=== PATIENT | female | born 1990 | race Caucasian/White ===

== ENCOUNTER → 2021-11-13 | Outpatient (CLI) | payer OTHER, SELFPAY ==
[2021-11-13 10:27] LABS: Amphetamine Urine VISTA NEGATIVE (<1000 ng/mL); Barbiturate Urine VISTA NEGATIVE (< 200 ng/mL); Benzodiazepine Urine VISTA NEGATIVE (< 200 ng/mL); Cocaine Urine VISTA NEGATIVE (< 300 ng/mL); Ecstacy Urine VISTA NEGATIVE (< 500 ng/mL); Methadone Urine VISTA NEGATIVE (< 300 ng/mL); PCP Urine VISTA NEGATIVE (< 25 ng/mL); THC Urine VISTA NEGATIVE (< 50 ng/mL); Vista UDS pH Range 6
[2021-11-13 10:48] LABS: Absolute Lymphocyte Count 1.14 X10^3/uL (0.83-4.51); Absolute Neutrophil Count 6.2 X10^3/uL (2.0-7.7); Basophil# 0.03 X10^3/uL; Basophil% 0.4 % (0-1); Eosinophil# 0.04 X10^3/uL; Eosinophils% 0.5 % (0-5); Hematocrit 38.9 % (37-47); Hemoglobin 12.8 g/dL (12.0-15.0); Lymphocyte # 1.14 X10^3/ul (0.83-4.51); Lymphocyte % 14.3 % (19-41); Mean Corp Hgb Conc 32.9 g/dL (32-36); Mean Corpuscular Hgb 28.7 pg (27.0-32.0); Mean Corpuscular Volume 87.2 fL (81-99); Mean Platelet Vol. 9.5 fl (6.2-12.0); Monocyte# 0.59 X10^3/uL; Monocyte% 7.4 % (0-10); NRBC Flagged by Analyzer 0 % (0-5); Neutrophil # 6.16 X10^3/uL (2.7-7.7); Platelet Count 317 K/mm3 (150-450); RBC Distribution Width CV 12.5 % (11.6-14.6); RBC Distribution Width SD 39.5 fl (35.1-43.9); Red Blood Count 4.46 M/mm3 (4.2-5.4)
[2021-11-13 11:07] LABS: Glucose Challenge Gest 1H 50g 91 mg/dL (70-140)
[2021-11-13 11:35] LABS: NATERA MAILED SPECIMEN
[2021-11-13 11:50] LABS: HIV - WCH Non-Reactive (Nonreactive); Hepatitis B Surface Antigen Non-Reactive (Nonreactive); Hepatitis C Antibody Non-Reactive (Nonreactive); Rubella IgG Reactive (Nonreactive); Syphilis Antibodies Non-reactive
[2021-11-14 13:51] LABS: Toxoplasma Gondii IgG < 3.0 IU/mL (0.0-7.1); Toxoplasma Gondii IgM < 3.0 AU/mL (0.0-7.9)
[2021-11-15 00:06] LABS: Chlamydia By Nucleic Acid AMP Negative (Negative)
[2021-11-15 11:09] LABS: Gonococcus By Nucleic Acid AMP Negative (Negative)
== END | disposition home or self-care (01) ==
PROVIDERS: PCP Family Medicine; Referring Provider Obstetrics & Gynecology; Visit Provider Obstetrics & Gynecology
DX: Z34.00 Encounter for supervision of normal first pregnancy, unspecified trimester (principal)
CPT/HCPCS: 36415; 80307; 82950; 85025; 86703; 86762; 86777; 86778; 86780; 86803; 86850; 86900; 86901; 87086; 87340; 87491; 87591

== ENCOUNTER → 2022-03-10 | Outpatient (CLI) | payer OTHER, SELFPAY ==
[2022-03-10 13:40] LABS: Absolute Lymphocyte Count 1.28 X10^3/uL (0.83-4.51); Absolute Neutrophil Count 6.8 X10^3/uL (2.0-7.7); Basophil# 0.04 X10^3/uL; Basophil% 0.5 % (0-1); Eosinophil# 0.09 X10^3/uL; Hematocrit 34.9 % (37-47); Hemoglobin 11.5 g/dL (12.0-15.0); Lymphocyte # 1.28 X10^3/ul (0.83-4.51); Lymphocyte % 14.7 % (19-41); Mean Corpuscular Hgb 28.9 pg (27.0-32.0); Mean Corpuscular Volume 87.7 fL (81-99); Mean Platelet Vol. 9.6 fl (6.2-12.0); Monocyte# 0.44 X10^3/uL; Monocyte% 5.1 % (0-10); NRBC Flagged by Analyzer 0 % (0-5); Neutrophil % 78.2 % (47-70); Platelet Count 327 K/mm3 (150-450); RBC Distribution Width CV 12.4 % (11.6-14.6); RBC Distribution Width SD 39.8 fl (35.1-43.9); Red Blood Count 3.98 M/mm3 (4.2-5.4); White Blood Count 8.7 K/mm3 (4.4-11.0)
[2022-03-10 14:04] LABS: Glucose Challenge Gest 1H 50g 92 mg/dL (70-140)
[2022-03-10 14:36] LABS: HIV - WCH Non-Reactive (Nonreactive); Syphilis Antibodies Non-reactive
== END | disposition home or self-care (01) ==
LOC: LAB 12:32
PROVIDERS: PCP Family Medicine; Referring Provider Obstetrics & Gynecology; Visit Provider Obstetrics & Gynecology
DX: Z34.00 Encounter for supervision of normal first pregnancy, unspecified trimester (principal)
CPT/HCPCS: 36415; 82950; 85025; 86703; 86780

== ENCOUNTER → 2022-05-15 | Outpatient (CLI) | payer OTHER, SELFPAY | END | disposition home or self-care (01) | LOC: LAB 13:33 | PROVIDERS: PCP Family Medicine; Referring Provider Obstetrics & Gynecology; Visit Provider Obstetrics & Gynecology | DX: Z34.00 Encounter for supervision of normal first pregnancy, unspecified trimester (principal) | CPT/HCPCS: 87077; 87081; 87186 ==

== ENCOUNTER 2022-06-08 06:53 | Inpatient (IN) | payer OTHER, SELFPAY ==
[2022-06-08] VITALS (30 sets, daily range): BP systolic 48–143; BP diastolic 21–94; PULSE 69–93; TEMP 36.4–37.2; O2SAT 81–100; BMI 39.6
[2022-06-08] MEDS: Lactated Ringers 1,000 ML 200 ML IV ×5 (07:00→21:00)
[2022-06-08] MEDS: LACTATED RINGERS 500 ML 999 ML IV (07:00)
[2022-06-08 07:22] LABS: Absolute Lymphocyte Count 1.46 X10^3/uL (0.83-4.51); Absolute Neutrophil Count 8.4 X10^3/uL (2.0-7.7); Basophil# 0.04 X10^3/uL; Basophil% 0.4 % (0-1); Eosinophil# 0.04 X10^3/uL; Eosinophils% 0.4 % (0-5); Hemoglobin 10.7 g/dL (12.0-15.0); Lymphocyte # 1.46 X10^3/ul (0.83-4.51); Lymphocyte % 13.9 % (19-41); Mean Corp Hgb Conc 31.5 g/dL (32-36); Mean Corpuscular Hgb 25.5 pg (27.0-32.0); Monocyte# 0.54 X10^3/uL; Monocyte% 5.2 % (0-10); NRBC Flagged by Analyzer 0 % (0-5); Neutrophil # 8.35 X10^3/uL (2.7-7.7); Neutrophil % 79.6 % (47-70); Platelet Count 336 K/mm3 (150-450); RBC Distribution Width SD 39.7 fl (35.1-43.9); White Blood Count 10.5 K/mm3 (4.4-11.0)
[2022-06-08] MEDS: fentaNYL-bupivacaine (epidural) 100 ML BAG EPIDURAL ×4 (07:42→21:00)
[2022-06-08 08:08] LABS: Syphilis Antibodies Non-reactive
--- NOTE | 2022-06-08 08:45 | HP.PCM.OB_ITS ---
HPI - General General Date of Admission: 06/08/22 HPI Narrative LEIF RAY, is a 32 F who presents IAL regular ctx and SROM clear fluid Maternal Data Information SOLANGE Calculator Estimated Delivery Date Method Current WG Current Estimate 06/10/22 LMP (Certain) 39w 5d Other Estimates 06/08/22 Ultrasound #1 40w 0d PFSH PFSH Home Medications multivitamin no.47-iron fum 27 mg-folate no.1 1 mg-dha 300 mg capsule (PNV-DHA) cap PO 11/06/21 [History Last Taken 06/07/22] Allergy/AdvReac Type Severity Reaction Status Date / Time No Known Allergies Allergy Verified 06/08/22 06:49 Family History Father Colon cancer, Onset Age: 50 Survivor Social History adopted: No household members: spouse housing: house current occupational status: employed 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 current occupational exposures/hazards: Yes (avoidable) pets and animals: Yes (not managing litterbox) pets and animals: cat(s), dog(s) and farm animals history of recent travel: Yes ([place], [place]) out of state: Yes out of country: No sexually active: Yes Smoking Status: Never smoker alcohol intake: never substance use type: does not use well-balanced diet: daily or most days caffeine: Yes Type: tea Number of servings: 1 eating out: 1-3 times/week during the past year weight has: remained stable what type of physical activity do you participate in: walking frequency: 1-2 times per week duration: 30-45 minutes/day grazyna/alevism: Cheondoism seatbelt use: always do you feel safe at home: Yes additional social history: Spouse Luis- [employer] History 1 Elective abortions Hx Para 0 Spontaneous abortions Hx # Term Pregnancies Ectopic pregnancies Hx # Pregnancies Multiple births # of living children Visit Details Expected Delivery Route/Plan Labor Preferences- CB/BF classes: scheduled labor support person: Luis () labor intervention preferences: [] pain management options preferred: epidural cut cord/dad catch: cord : yes PP control planned: discussed discussed possible routes of delivery and associated risks: [] special requests: [] Plans Covid status: vaccinated Flu vaccine: discussed Tdap vaccine: given Rhogam: na LARC form signed: yes Problem list reviewed and updated with the most current plan of care details and appropriate orders placed. Relevant counseling for the gestational age provided. Continue routine care and follow up unless otherwise noted in visit notes/problem list details OB Flowsheet Initial Weight: Not Recorded Date -?-?-?-?-?-?-?-?-?-?-?-?- EGA Weight BP Urine Prot -?-?-?-?-?-?-?-?-?-?-?-?- Glucose FHR FuHt Pres Dilation -?-?-?-?-?-?-?-?-?-?-?-?- Effaced St Visit Note 11/13/21 -?-?-?-?-?-?-?-?-?-?-?-?- 10w 1d 208 lb 6 oz 117/66 -?-?-?-?-?-?-?-?-?-?-?-?- 185 -?-?-?-?-?-?-?-?-?-?-?-?- JV- CRL consiten t with LMP 12/09/21 -?-?-?-?-?-?-?-?-?-?-?-?- 13w 6d 210 lb 110/60 -?-?-?-?-?-?-?-?-?-?-?-?- 150 -?-?-?-?-?-?-?-?-?-?-?-?- SM- no vb crampi ng 01/06/22 -?-?-?-?-?-?-?-?-?-?-?-?- 17w 6d 212 lb 4 oz 118/66 Nega tive -?-?-?-?-?-?-?-?-?-?-?-?- Negative 146 -?-?-?-?-?-?-?-?-?-?-?-?- MH-nausea improv ing. NO VB, cramping. 02/06/22 -?-?-?-?-?-?-?-?-?-?-?-?- 22w 2d 218 lb 6 oz 104/69 Nega tive -?-?-?-?-?-?-?--?-?-?-?-?- Negative 156 -?-?-?-?-?-?-?-?-?-?-?-?- MH-NO VB, LOF. F eeling some movements/ant placenta. Nausea off and on but manageabe. 03/10/22 -?-?-?-?-?-?-?-?-?-?-?-?- 26w 6d 224 lb 4 oz 110/70 Nega tive -?-?-?-?-?-?-?-?-?-?-?-?- Negative 145 27 -?-?-?-?-?-?-?-?-?-?-?-?- Sm- no vb lof go od fm no regular ctx cbc gct today 04/03/22 -?-?-?-?-?-?-?-?-?-?-?-?- 30w 2d 231 lb 4 oz 117/73 Nega tive -?-?-?-?-?-?-?-?-?-?-?-?- Negative 137 30 -?-?-?-?-?-?-?-?-?-?-?-?- JV- plan r eviewed today and very reasonable. pt wants to bank blood for public donation. The form states that delayed cord clamping is not allowed. plan to only collect if there is a situation that we can't delay the cord clamp. 04/14/22 -?-?-?-?-?-?-?-?-?-?-?-?- 31w 6d 239 lb 117/69 Negative -?-?--?-?-?-?-?-?-?-?-?-?- Negative 143 33 -?-?-?-?-?-?-?-?-?-?-?-?- MH-No VB, LOF. G ood Fm. 05/01/22 -?-?-?-?-?-?-?-?-?-?-?-?- 34w 2d 235 lb 2 oz 102/68 Nega tive -?-?-?-?-?-?-?-?-?-?-?-?- Negative 147 34 Cephalic -?-?-?-?-?-?-?-?-?-?-?-?- JV- no lof, vagi nal bleeding, or dec fm. no complaints today. 05/15/22 -?-?-?-?-?-?-?-?-?-?-?-?- 36w 2d 237 lb 4 oz 128/69 Nega tive -?-?-?-?-?-?-?-?-?-?-?-?- Negative 139 36 Cephalic 0 -?-?-?-?-?-?-?-?-?-?-?-?- JV- no lof, vag bleeding, or dec fm. vtx on scan today. gbs collected. 05/19/22 -?-?-?-?-?-?-?-?-?-?-?-?- 36w 6d 239 lb 8 oz 122/68 -?-?-?-?-?-?-?-?-?-?-?-?- 140 37 Cephalic -?-?-?-?-?-?-?-?-?-?-?-?- SM- no vb lof go od fm no regular ctx 05/29/22 -?-?-?-?-?-?-?-?-?-?-?-?- 38w 2d 243 lb 4 oz 127/77 Nega tive -?-?-?-?-?-?-?-?-?-?-?-?- Negative 136 38 Cephalic 1 .5 -?-?-?-?-?-?-?-?-?-?-?-?- 65 -2 JV- no lof , vaginal bleeding, or dec fm. no complaints. 06/05/22 -?-?-?-?-?-?-?-?-?-?-?-?- 39w 2d 247 lb 4 oz 142/81 119/70 Negative -?-?-?-?-?-?-?-?-?-?-?-?- Negative 135 39 Cephalic 3 -?-?-?-?-?-?-?-?-?-?-?-?- 60 -2 SM- no vb lof good fm no regular ctx no CALVIN BV membranes swept 06/08/22 -?-?-?-?-?-?-?-?-?-?-?-?- 39w 5d 245 lb 6.4 oz 120/74 121/62 137/94 143/82 111/59 104/55 -?-?-?-?-?-?-?-?-?-?-?-?- -?-?-?-?-?-?-?-?-?-?-?-?- NST FHR Rate Baby A Baseline: 130 Variability:: Moderate Accelerations:: 15 x 15 Decelerations:: None NST Reactive:: Yes FHR Category:: Category I Uterine Activity:: q5 ROS Constitutional Constitutional: Reports systems reviewed and no addt'l complaints, except as documented ENT HEENT: Reports systems reviewed and no addt'l complaints, except as documented Cardiovascular Cardiovascular: Reports systems reviewed and no addt'l complaints, except as documented Respiratory/Chest Respiratory/Chest: Reports systems reviewed and no addt'l complaints, except as documented Gastrointestinal Gastrointestinal: Reports systems reviewed and no addt'l complaints, except as documented and nausea; Denies abdominal pain Genitourinary Genitourinary: Reports systems reviewed and no addt'l complaints, except as documented, contractions Details: present and frequency (regular ) and movement Details: present Musculoskeletal Musculoskeletal: Reports systems reviewed and no addt'l complaints, except as documented Integumentary Integumentary: Reports as per HPI Neurologic Neurologic: Reports systems reviewed and no addt'l complaints, except as doc umented Endocrine Endocrinology: Reports systems reviewed and no addt'l complaints, except as documented Vital Signs Vital Signs Vital Signs: 06/08/22 06:35 06/08/22 06:35 06/08/22 06:32 Temperature Temperature Source Temporal Pulse Rate 69 Blood Pressure BP Systolic BP Diastolic Pulse Ox 89 06/08/22 06:35 06/08/22 06:35 06/08/22 06:32 Temperature 97.6 F L Temperature Source Pulse Rate 69 Blood Pressure 120/74 BP Systolic 120 BP Diastolic 74 Pulse Ox 06/08/22 07:33 06/08/22 07:33 06/08/22 07:32 Temperature Temperature Source Pulse Rate 75 Blood Pressure 121/62 H BP Systolic 121 BP Diastolic 62 Pulse Ox 99 06/08/22 07:35 06/08/22 07:35 06/08/22 07:37 Temperature Temperature Source Pulse Rate 74 73 Blood Pressure BP Systolic BP Diastolic Pulse Ox 88 06/08/22 07:37 06/08/22 07:38 06/08/22 07:38 Temperature Temperature Source Pulse Rate 81 Blood Pressure 137/94 H BP Systolic 137 BP Diastolic 94 Pulse Ox 94 06/08/22 07:42 06/08/22 07:43 06/08/22 07:43 Temperature Temperature Source Pulse Rate 78 Blood Pressure 143/82 H BP Systolic 143 BP Diastolic 82 Pulse Ox 91 06/08/22 07:51 06/08/22 07:51 06/08/22 07:50 Temperature Temperature Source Pulse Rate 92 Blood Pressure 111/59 L BP Systolic 111 BP Diastolic 59 Pulse Ox 100 06/08/22 07:55 06/08/22 07:55 06/08/22 07:57 Temperature Temperature Source Pulse Rate 93 Blood Pressure 104/55 L BP Systolic 104 BP Diastolic 55 Pulse Ox 98 06/08/22 07:57 Temperature Temperature Source Pulse Rate 92 Blood Pressure BP Systolic BP Diastolic Pulse Ox Weight Weight: 245 lb 6.4 oz Body Mass Index (BMI) 39.6 Physical Exam Const alert, oriented x3 and healthy appearing Constitutional Narrative: uncomfortable with contractions HEENT normocephalic and moist oral mucous membranes Head and Scalp: atraumatic Neck full ROM, no lymphadenopathy, supple and thyroid normal General: trachea midline Thyroid: thyroid normal Lymph Lymphatic: no lymphadenopathy noted Chest inspection of chest normal Resp normal respiratory effort Cardio regular rate GI normal to inspection, nondistended, normoactive bowel sounds, soft to palpation and non-tender Inspection: gravid external exam normal Bimanual Exam - Vag & Uterus: uterus non-tender Manual OB Exam: estimated gestational size appropriate, presentation cephalic, dilated, effaced and station Extremity normal to inspection General Extremity: Negative for edema Skin no rashes or lesions noted Neuro deep tendon reflexes 2+ bilaterally Motor Exam: strength 5/5 throughout and clonus absent Psych mental status grossly normal Labs Labs Labs: Blood Type B POSITIVE Antibody Screen NEGATIVE Hct 34.0 % (37-47) L Hgb 10.7 g/dL (12.0-15.0) L Pap Smear Negative Syphilis Total Ab Non-reactive Rubella IgG Antibody Reactive (Nonreactive) Hep Bs Antigen Non-Reactive (Nonreactive) Chlamydia DNA ([place]IA[facility]) Negative (Negative) Neisseria gonorrhoeae DNA ([place]) Negative (Negative) HIV 1&2 Antibody Non-Reactive (Nonreactive) Glucose 1 Hr 50 gm 92 mg/dL (70-140) Assessment & Plan (1) Positive GBS test: COMMENT: PCN in labor (2) Family hx of colon cancer: COMMENT: Father 50 yo Survivor (3) : QUALIFIERS: Weeks of gestation: 39 weeks Qualified Code(s): Z3A.39 - 39 weeks gestation of COMMENT: NIPT low risk, carrier neg. . anatomy nl. (4) Supervision of normal first : COMMENT: PRR SOLANGE 06/10/22 girl Pippa Spouse Luis (5) Obesity affecting : (6) SROM (spontaneous rupture of membranes): PLAN: Plan Patient presents ial srom pit prn. Pain management: plans epidural. GBS positive plan IV PCN. Management of any complications: none I have reviewed the [facility] and made any clinically relevant updates.
[2022-06-08] MEDS: Oxytocin 15 Units/NS 250ml 15 UNITS/250 ML IV.SOLN 2 UNITS IV (10:32)
[2022-06-08] MEDS: Penicillin G 3,000,000 Units 50 ML 100 UNITS IV ×4 (11:53→23:49)
[2022-06-08] MEDS: 0.9% Saline Lock 10 ML Syringe IV (22:58)
[2022-06-08] MEDS: Ondansetron 4 MG/2 ML Vial IV (22:59)
--- NOTE | 2022-06-08 23:26 | EX.PCM.OBRPT ---
Assessment & Plan (1) SROM (spontaneous rupture of membranes): (2) Positive GBS test: COMMENT: PCN in labor (3) Obesity affecting : (4) Supervision of normal first : COMMENT: PRR SOLANGE 06/10/22 girl Pippa Spouse Luis (5) : QUALIFIERS: Weeks of gestation: 39 weeks Qualified Code(s): Z3A.39 - 39 weeks gestation of COMMENT: NIPT low risk, carrier neg. . anatomy nl. (6) Family hx of colon cancer: COMMENT: Father 50 yo Survivor (7) Vaginal delivery: COMMENT: SM IAL girl Pippa 40 Maternal Data Information SOLANGE Calculator Estimated Delivery Date Method Current WG Current Estimate 06/10/22 LMP (Certain) 39w 6d Other Estimates 06/08/22 Ultrasound #1 40w 1d Vaginal Delivery Operative Information Date of Procedure: 06/08/22 Pre-Operative Diagnosis: see a/p diagnoses Post-Operative Diagnosis: same Surgery / Procedure Performed: Spontaneous Vaginal Delivery Type of Anesthesia: Epidural Special Medications: none Estimated Blood Loss: 400 Fluids Replaced: crystalloid Findings Description of Procedure: Patient began pushing and delivered the head in the REYNA presentation. The head was delivered atraumatically and a loose nuchal cord ?1 was identified and the delivered through without complication. The anterior and posterior shoulders delivered without complication followed by the rest of the infant and the infant was placed on the maternal abdomen. Delayed cord clamping was employed for approximately 60 seconds. Cord was clamped and cut and gentle traction was applied to the cord and the placenta delivered spontaneously immediately following it was noted to be intact with three-vessel cord. The perineum and vagina were inspected and noted to have a second degree perineal laceration and supraurethral which was repaired in the usual fashion with 3-0 vicryl rapide after the area was prepped with betadine and the catheter replaced during repair . EBL was 400. Patient and tolerated delivery well. Amniotic Fluid Description: Clear Placental Delivery Description: Spontaneous Placenta Disposition: [facility] Cord Vessel Description: 3 Vessels Cord Entanglement: None Delayed Cord Clamping: Yes Post Vaginal Delivery Medications Given After Delivery: IV Pitocin Episiotomy Description: None Complication Complications: None Procedures Urinary/Genital [id number]: [id number] Vaginal Delivery [facility]
--- NOTE | 2022-06-08 23:27 | DCINST_ITS ---
Discharge Instructions Diet Discharge Diet: No restrictions Activity Discharge Activity: Return to Normal Activity, May Drive, May Shower and May Take a Tub Bath (in 4 weeks) May resume sexual activity in: 6-8 weeks (after seen by OB provider) Weight Bearing Status: Full weight bearing Lifting Restrictions: none Dressing / Incision Call your doctor if you observe: Fever of 101 or Higher, Inability to urinate, Using more than 1 pad per hour (for more than 2 hours in a row or more), Shortness of breath, Dizziness, Chest pain and - (headache not controlled with tylenol, change in vision) Follow Up Care When: in 6 weeks for visit, call the office to make the appointment. If you had elevated blood pressures call the office to be seen within 1 week. Test Results: Test results from this visit will be discussed in further detail at your follow- up appointment, if applicable. Discharge Plan Admission Admit Date/Time: 06/08/22 06:53 Attending Provider: Katie Sims Primary Care Provider: Marc Ayers Discharge Orders/Prescriptions Prescriptions: No Action PNV-DHA 27 mg iron-1 mg -300 mg capsule PO Referrals / Follow Up: Marc Ayers MD [Primary Care Provider] - Disposition Disposition (needs filled in before D/C Order can be placed): Home, Self Care
[2022-06-09] VITALS (39 sets, daily range): BP systolic 105–134; BP diastolic 47–58; PULSE 80–108; RESP 15–16; TEMP 36.3–36.9; O2SAT 89–99
[2022-06-09] MEDS: Oxytocin 15 Units/NS 250ml 15 UNITS/250 ML IV.SOLN 83 UNITS IV (01:44)
[2022-06-09] MEDS: Naproxen 500 MG Tablet PO ×3 (03:07→20:25)
--- NOTE | 2022-06-09 04:42 | NURSING ---
Epidural catheter removed, blue tip intact.
[2022-06-10 01:25] VITALS: BP 112/71; PULSE 97; RESP 16; TEMP 36.6; O2SAT 97
--- NOTE | 2022-06-10 07:28 | PCM.PN.OB ---
Subjective Subjective Patient doing well without complaints. Tolerating PO. Ambulating and voiding without difficulty. Feeding well. Denies chest pain, shortness of breath, calf pain/swelling, fevers, chills, lightheadedness. Objective Data Objective Data Vital Signs: Vital Signs Temp Pulse Resp BP Pulse Ox O2 Del Method 97.9 F 97 16 112/71 97 Room Air 06/10/22 01:25 06/10/22 01:25 06/10/22 01:25 06/10/22 01:25 06/10/22 01:25 06/10/22 01:25 Oxygen Delivery Method Room Air Weight: 245 lb 6.4 oz Body Mass Index (BMI) 39.6 Intake & Output: Intake and Output for Last 24 Hours 06/08/22 06/09/22 06/10/22 23:59 23:59 23:59 Intake Total 4043.69 / 4043.69 1437.98 / 1437.98 Output Total 250 / 250 2300 / 2300 Balance 3793.69 / 3793.69 -862.02 / -862.02 Lab / Micro Data Attestation: I reviewed the patient's lab results. Result Diagrams: 06/08/22 07:00 ROS Constitutional Constitutional: Reports systems reviewed and no addt'l complaints, except as documented; Denies anorexia or headache(s) Cardiovascular Cardiovascular: Reports systems reviewed and no addt'l complaints, except as documented; Denies dizziness, dyspnea, nausea or tachypnea Respiratory/Chest Respiratory/Chest: Reports systems reviewed and no addt'l complaints, except as documented; Denies cough, dyspnea, shortness of breath at rest or tachypnea Gastrointestinal Gastrointestinal: Reports systems reviewed and no addt'l complaints, except as documented; Denies abdominal pain, constipation or nausea Genitourinary Genitourinary: Reports systems reviewed and no addt'l complaints, except as documented; Denies burning urination, difficulty urinating, dysuria, urinary frequency or urinary incontinence Musculoskeletal Musculoskeletal: Reports systems reviewed and no addt'l complaints, except as documented Integumentary Integumentary: Reports systems reviewed and no addt'l complaints, except as documented Neurologic Neurologic: Reports systems reviewed and no addt'l complaints, except as documented; Denies abnormal speech, dizziness or headache(s) Psychiatric Psychiatric: Reports systems reviewed and no addt'l complaints, except as documented Endocrine Endocrinology: Reports systems reviewed and no addt'l complaints, except as documented Hematologic/Lymphatic Hematologic/Lymphatic: Reports systems reviewed and no addt'l complaints, except as documented Physical Exam Const alert, oriented x3 and no apparent distress Neck full ROM Chest inspection of chest normal and inspection of breasts normal Nipple/Areola: nipples/areola normal Resp normal respiratory effort, normal air movement and no retractions Effort and Inspection: able to speak in complete sentences and symmetric chest movement GI soft to palpation Bladder / Kidney Exam: bladder normal to palpation Uterus Palpation: uterus fundus firm (U1) Extremity normal to inspection and full ROM Psych mental status grossly normal, thought process normal and cooperative Assessment & Plan (1) Vaginal delivery: COMMENT: TOAV WILLIS IAL girl Pippa 40 PLAN: s/p PPD # 1 1. routine post delivery care 2. breast feeding- support given 3. rh positive 4. rubella immune 5. Discharge home Charges/Coding Multi Select Codes Urinary/Genital Urinary/Genital CPT Codes: No Charge
--- NOTE | 2022-06-10 07:30 | DCINST_ITS ---
Discharge Instructions Diet Discharge Diet: No restrictions Activity May resume sexual activity in: 6-8 weeks (after seen by OB provider) Weight Bearing Status: Full weight bearing Dressing / Incision Call your doctor if you observe: Fever of 101 or Higher, Inability to urinate, Using more than 1 pad per hour (for more than 2 hours in a row or more), Shortness of breath, Dizziness, Chest pain and - (headache not controlled with tylenol, change in vision) Follow Up Care Test Results: Test results from this visit will be discussed in further detail at your follow- up appointment, if applicable. Discharge Plan Admission Admit Date/Time: 06/08/22 06:53 Attending Provider: Katie Sims Primary Care Provider: Marc Ayers Discharge Orders/Prescriptions Prescriptions: No Action PNV-DHA 27 mg iron-1 mg -300 mg capsule PO Referrals / Follow Up: Marc Ayers MD [Primary Care Provider] - Disposition Disposition (needs filled in before D/C Order can be placed): Home, Self Care
[2022-06-10 07:58] VITALS: BP 120/50; PULSE 78; RESP 16; TEMP 36.5; O2SAT 96
== END 2022-06-10 09:15 | disposition home or self-care (01) | DRG 807 ==
PROVIDERS: Admitting Provider Obstetrics & Gynecology; PCP Family Medicine; Referring Provider Obstetrics & Gynecology; Visit Provider Obstetrics & Gynecology
DX: O42.92 Full-term premature rupture of membranes, unspecified as to length of time between rupture and onset of labor (principal); Z37.0 Single live birth; O69.81X0 Labor and delivery complicated by cord around neck, without compression, not applicable or unspecified; O70.1 Second degree perineal laceration during delivery; O99.824 Streptococcus B carrier state complicating childbirth; Z3A.39 39 weeks gestation of pregnancy; O99.214 Obesity complicating childbirth
CPT/HCPCS: 59025; 59050; 85025; 86780; 86850; 86900; 86901; 99221; J7120; A4216; G0378; J2405

== ENCOUNTER → 2022-07-21 | Outpatient (CLI) | payer OTHER, SELFPAY ==
[2022-07-29 09:07] LABS: HPV APTIMA, High Risk Negative (Negative)
== END | disposition home or self-care (01) ==
PROVIDERS: PCP Family Medicine; Visit Provider Obstetrics & Gynecology
DX: Z12.4 Encounter for screening for malignant neoplasm of cervix (principal)
CPT/HCPCS: 87624; 88175; G0145

== ENCOUNTER → 2024-01-21 | Outpatient (CLI) | payer OTHER, SELFPAY ==
[2024-01-23 08:12] LABS: Chlamydia By Nucleic Acid AMP Negative (Negative); Gonococcus By Nucleic Acid AMP Negative (Negative)
== END | disposition home or self-care (01) ==
LOC: BWCLAB 10:38 → LABSPEC 10:39
PROVIDERS: Referring Provider Advanced Practice Midwife; Visit Provider Advanced Practice Midwife
DX: O09.90 Supervision of high risk pregnancy, unspecified, unspecified trimester (principal); O99.210 Obesity complicating pregnancy, unspecified trimester; Z3A.00 Weeks of gestation of pregnancy not specified
CPT/HCPCS: 87086; 87491; 87591

== ENCOUNTER → 2024-02-05 | Outpatient (CLI) | payer OTHER, SELFPAY ==
[2024-02-05 13:59] LABS: Absolute Lymphocyte Count 1.61 X10^3/uL (0.83-4.51); Absolute Neutrophil Count 5.4 X10^3/uL (2.0-7.7); Basophil# 0.04 X10^3/uL; Basophil% 0.5 % (0-1); Eosinophil# 0.09 X10^3/uL; Eosinophils% 1.2 % (0-5); Hematocrit 36.9 % (37-47); Lymphocyte # 1.61 X10^3/ul (0.83-4.51); Lymphocyte % 21.1 % (19-41); Mean Corp Hgb Conc 32.5 g/dL (32-36); Mean Corpuscular Hgb 27.8 pg (27.0-32.0); Mean Corpuscular Volume 85.4 fL (81-99); Mean Platelet Vol. 9.7 fl (6.2-12.0); Monocyte# 0.45 X10^3/uL; Monocyte% 5.9 % (0-10); NRBC Flagged by Analyzer 0 % (0-5); Neutrophil # 5.42 X10^3/uL (2.7-7.7); Platelet Count 332 K/mm3 (150-450); RBC Distribution Width CV 13.1 % (11.6-14.6); RBC Distribution Width SD 40.8 fl (35.1-43.9); Red Blood Count 4.32 M/mm3 (4.2-5.4); White Blood Count 7.6 K/mm3 (4.4-11.0)
[2024-02-05 14:23] LABS: Hemoglobin A1c 5.4 % (3.8-5.6)
[2024-02-05 15:02] LABS: HIV - WCH Non-Reactive (Nonreactive); Hepatitis B Surface Antigen Non-Reactive (Nonreactive); Hepatitis C Antibody Non-Reactive (Nonreactive); Rubella IgG Reactive (Nonreactive); Syphilis Antibodies Non-reactive
== END | disposition home or self-care (01) ==
LOC: BWCLAB 13:22
PROVIDERS: Advanced Practice Midwife; Referring Provider Obstetrics & Gynecology; Visit Provider Obstetrics & Gynecology
DX: O99.210 Obesity complicating pregnancy, unspecified trimester (principal); Z3A.00 Weeks of gestation of pregnancy not specified
CPT/HCPCS: 36415; 83036; 85025; 86703; 86762; 86780; 86803; 86850; 86900; 86901; 87340

== ENCOUNTER → 2024-02-17 | Outpatient (CLI) | payer OTHER, SELFPAY | END | disposition home or self-care (01) | LOC: BWCLAB 14:28 | PROVIDERS: Referring Provider Obstetrics & Gynecology; Visit Provider Obstetrics & Gynecology | DX: Z34.81 Encounter for supervision of other normal pregnancy, first trimester (principal) | CPT/HCPCS: 36415 ==

== ENCOUNTER → 2024-03-17 | Outpatient (CLI) | payer OTHER, SELFPAY | END | disposition home or self-care (01) | LOC: LABSPEC 15:19 | PROVIDERS: Referring Provider Obstetrics & Gynecology; Visit Provider Obstetrics & Gynecology | DX: N89.8 Other specified noninflammatory disorders of vagina (principal) | CPT/HCPCS: 87070; 87205 ==

== ENCOUNTER → 2024-06-03 | Outpatient (CLI) | payer OTHER, SELFPAY ==
[2024-06-03 12:13] LABS: Absolute Lymphocyte Count 1.23 X10^3/uL (0.83-4.51); Absolute Neutrophil Count 6.9 X10^3/uL (2.0-7.7); Basophil# 0.03 X10^3/uL; Basophil% 0.3 % (0-1); Eosinophil# 0.07 X10^3/uL; Eosinophils% 0.8 % (0-5); Hematocrit 35.3 % (37-47); Hemoglobin 11.4 g/dL (12.0-15.0); Lymphocyte # 1.23 X10^3/ul (0.83-4.51); Mean Corp Hgb Conc 32.3 g/dL (32-36); Mean Corpuscular Hgb 27.8 pg (27.0-32.0); Mean Corpuscular Volume 86.1 fL (81-99); Monocyte# 0.47 X10^3/uL; Monocyte% 5.3 % (0-10); NRBC Flagged by Analyzer 0 % (0-5); Neutrophil # 6.93 X10^3/uL (2.7-7.7); Neutrophil % 78.9 % (47-70); Platelet Count 295 K/mm3 (150-450); RBC Distribution Width CV 12.6 % (11.6-14.6); RBC Distribution Width SD 39.4 fl (35.1-43.9); White Blood Count 8.8 K/mm3 (4.4-11.0)
[2024-06-03 13:09] LABS: Glucose Challenge Gest 1H 50g 94 mg/dL (70-140); HIV Nonreactive (Nonreactive); Syphilis Antibodies Nonreactive (Nonreactive)
== END | disposition home or self-care (01) ==
PROVIDERS: Obstetrics & Gynecology; Referring Provider Advanced Practice Midwife; Visit Provider Advanced Practice Midwife
DX: O09.90 Supervision of high risk pregnancy, unspecified, unspecified trimester (principal); Z13.1 Encounter for screening for diabetes mellitus; Z3A.00 Weeks of gestation of pregnancy not specified
CPT/HCPCS: 36415; 82950; 85025; 86703; 86780

== ENCOUNTER → 2024-07-11 | Outpatient (CLI) | payer OTHER, SELFPAY ==
[2024-07-11 12:47] LABS: AST(SGOT) 28 U/L (<=31); Alanine Aminotransfer ALT/SGPT 52 U/L (<=34); Albumin, Serum 3.3 g/dL (3.5-5.0); Alkaline Phosphatase 152 U/L (35-104); Anion Gap 11 (5-15); BUN 7 mg/dL (4-19); BUN/Creat Ratio 11.5 RATIO (10-20); Calcium,Total 8.6 mg/dL (7.6-11.0); Carbon Dioxide 21.2 mmol/L (21.0-32.0); Chloride 105 mmol/L (98-108); Creatinine, Serum 0.63 mg/dL (0.70-1.20); EST Glomerular Filtration Rate 119 (>60); Globulin 3.2 g/dL (2.2-4.2); Glucose 93 mg/dL (70-99); Potassium 3.7 mmol/L (3.3-5.1); Protein, Total 6.5 g/dL (5.9-8.4); Sodium Level 137 mmol/L (133-145); Total Bilirubin 0.53 mg/dL (0.00-1.30)
[2024-07-11 13:45] LABS: Absolute Lymphocyte Count 1.38 X10^3/uL (0.83-4.51); Absolute Neutrophil Count 4.4 X10^3/uL (2.0-7.7); Basophil# 0.03 X10^3/uL; Basophil% 0.5 % (0-1); Eosinophil# 0.03 X10^3/uL; Eosinophils% 0.5 % (0-5); Hematocrit 34.1 % (37-47); Hemoglobin 11.3 g/dL (12.0-15.0); Lymphocyte # 1.38 X10^3/ul (0.83-4.51); Lymphocyte % 22.1 % (19-41); Mean Corp Hgb Conc 33.1 g/dL (32-36); Mean Corpuscular Hgb 27.5 pg (27.0-32.0); Mean Platelet Vol. 10.4 fl (6.2-12.0); Monocyte# 0.35 X10^3/uL; Monocyte% 5.6 % (0-10); NRBC Flagged by Analyzer 0 % (0-5); Neutrophil # 4.44 X10^3/uL (2.7-7.7); POSITIVE MORPHOLOGY YES; Platelet Count 293 K/mm3 (150-450); RBC Distribution Width CV 12.5 % (11.6-14.6); RBC Distribution Width SD 37.7 fl (35.1-43.9); Red Blood Count 4.11 M/mm3 (4.2-5.4); White Blood Count 6.3 K/mm3 (4.4-11.0)
[2024-07-11 13:55] LABS: Differential Indicated SCAN CRITERIA MET
[2024-07-11 15:48] LABS: Platelet Estimate ADEQUATE (ADEQ)
== END | disposition home or self-care (01) ==
PROVIDERS: Referring Provider Advanced Practice Midwife; Visit Provider Advanced Practice Midwife
DX: O26.649 Intrahepatic cholestasis of pregnancy, unspecified trimester (principal); O99.719 Diseases of the skin and subcutaneous tissue complicating pregnancy, unspecified trimester; L29.9 Pruritus, unspecified; O21.9 Vomiting of pregnancy, unspecified; Z3A.00 Weeks of gestation of pregnancy not specified
CPT/HCPCS: 36415; 80053; 85025

== ENCOUNTER → 2024-07-20 | Outpatient (CLI) | payer OTHER, SELFPAY ==
--- NOTE | 2024-07-20 18:01 | US_ITS ---
PROCEDURE: BIOPHYSICAL PROF W/O NON STRES 07/20/2024 REASON FOR EXAM: WELL BEING TECHNIQUE: Transabdominal OB ultrasound for biophysical profile COMPARISON: None available FINDINGS Single live intrauterine heart tones 141 beats per minute. Presentation is cephalic. ANN MARIE 11.9 cm, largest fluid pocket 7.2 x 6 0.0 cm Estimated age by LMP 35 weeks and 3 days, SOLANGE 08/26/2024 Grade 1 posterior placenta appears within limits. Not low-lying breathing movements: 2/2 Gross body movements: 2/2 Tone: 2/2 Amniotic fluid volume: 2/2 Total: 8/8 US/Biophysical Prof W/O Non Stres IMPRESSION: BIOPHYSICAL PROFILE SCORE 8/8. Single live intrauterine as above. Reading Location: [id number]
== END | disposition home or self-care (01) ==
LOC: US 17:57
PROVIDERS: Referring Provider Advanced Practice Midwife; Visit Provider Advanced Practice Midwife
DX: Z34.93 Encounter for supervision of normal pregnancy, unspecified, third trimester (principal)
CPT/HCPCS: 76819

== ENCOUNTER → 2024-07-28 | Outpatient (CLI) | payer OTHER, SELFPAY ==
[2024-07-28 15:03] LABS: Absolute Lymphocyte Count 1.42 X10^3/uL (0.83-4.51); Absolute Neutrophil Count 5.8 X10^3/uL (2.0-7.7); Basophil# 0.03 X10^3/uL; Basophil% 0.4 % (0-1); Eosinophil# 0.04 X10^3/uL; Eosinophils% 0.5 % (0-5); Hematocrit 33.9 % (37-47); Lymphocyte # 1.42 X10^3/ul (0.83-4.51); Lymphocyte % 18.3 % (19-41); Mean Corp Hgb Conc 32.4 g/dL (32-36); Mean Corpuscular Hgb 26.5 pg (27.0-32.0); Mean Corpuscular Volume 81.7 fL (81-99); Mean Platelet Vol. 10.7 fl (6.2-12.0); Monocyte# 0.44 X10^3/uL; Monocyte% 5.7 % (0-10); NRBC Flagged by Analyzer 0 % (0-5); Neutrophil # 5.81 X10^3/uL (2.7-7.7); Neutrophil % 74.7 % (47-70); Platelet Count 276 K/mm3 (150-450); RBC Distribution Width SD 37.8 fl (35.1-43.9); Red Blood Count 4.15 M/mm3 (4.2-5.4); White Blood Count 7.8 K/mm3 (4.4-11.0)
[2024-07-28 16:03] LABS: ALB/GLOB Ratio 0.9 RATIO (0.9-2.4); AST(SGOT) 24 U/L (<=31); Alanine Aminotransfer ALT/SGPT 34 U/L (<=34); Albumin, Serum 3.2 g/dL (3.5-5.0); Alkaline Phosphatase 160 U/L (35-104); Anion Gap 12 (5-15); BUN 9 mg/dL (4-19); BUN/Creat Ratio 12.5 RATIO (10-20); Chloride 104 mmol/L (98-108); Creatinine, Serum 0.71 mg/dL (0.70-1.20); EST Glomerular Filtration Rate 115 (>60); Globulin 3.4 g/dL (2.2-4.2); Glucose 93 mg/dL (70-99); Potassium 3.8 mmol/L (3.3-5.1); Protein, Total 6.7 g/dL (5.9-8.4); Sodium Level 137 mmol/L (133-145); Total Bilirubin 0.65 mg/dL (0.00-1.30)
--- NOTE | 2024-07-28 17:50 | US_ITS ---
PROCEDURE: BIOPHYSICAL PROF W/O NON STRES 07/28/2024 REASON FOR EXAM: WELL BEING TECHNIQUE: High resolution obstetric ultrasound performed using a 2D transducer. Standard views obtained, including biometry, anatomy survey, and Doppler studies. COMPARISON: Prior study dated July 20, 2024. FINDINGS Number: 1 Position: Vertex Placental Position: Posterior and not low-lying. Placental Abnormalities: ESTIMATED GESTATIONAL AGE: Baseline: 35 weeks and 6 days ESTIMATED DATE OF DELIVERY: Baseline: August 26, 2024. BIOPHYSICAL ASSESSMENT: Amniotic Fluid Volume: 3.9 cm 2.9 cm Amniotic Fluid Index: 11.7 (8-24 cm normal range) Cardiac Motion: (average) Trunk and Limb Motion: Present. Biophysical profile: Breathing movements: 2 Gross body movements: 2 tone: 2 Amniotic fluid volume: 2 Total score: 8/8 US/Biophysical Prof W/O Non Stres IMPRESSION: Normal biophysical profile score. Reading Location: [place] [id number]
== END | disposition home or self-care (01) ==
PROVIDERS: Obstetrics & Gynecology; Referring Provider Advanced Practice Midwife; Visit Provider Advanced Practice Midwife
DX: Z34.93 Encounter for supervision of normal pregnancy, unspecified, third trimester (principal)
CPT/HCPCS: 36415; 76819; 80053; 85025; 87077; 87081; 87186

== ENCOUNTER 2024-08-05 07:15 | Inpatient (IN) | payer OTHER, SELFPAY ==
[2024-08-05] VITALS (46 sets, daily range): BP systolic 74–142; BP diastolic 39–70; PULSE 43–85; RESP 16–17; TEMP 35.9–37; O2SAT 82–100; BMI 38.0
--- OUTSIDE RECORDS SUMMARY | 2024-08-05 07:22 | XMS RPT_ITS | CCD ---
Author Organization [facility] [place] [facility] Team Providers Care Window Glazier Helper Name Role Phone Angelina Gusman Unavailable [phone] Marla Arthur Attending Provider [phone] Dr. Marc Gusman Primary Care Provider Dr. Marc Gusman Referring Provider [phone] Dr. Marc Gusman Primary Care Provider Dr. Marc Gusman Referring Provider [phone] Dr. Lindsay Amaral Attending Provider [phone] Barrie BARN MANAGER, SOHA-C Dina Attending Provider [phone] Dr. Katie Parekh Attending Provider [phone] Dr. Marla Arthur Attending Provider [phone] Dr. Marc Gusman Primary Care Provider [phone] Dr. Marc Gusman Referring Provider [phone] Dr. Lindsay Amaral Attending Provider [phone] Barrie BARN MANAGER, BARN MANAGER-C Dina Attending Provider [phone] Dr. Katie Parekh Admit Provider [phone] Dr. Katie Parekh Referring Provider [phone] Dr. Katie Parekh Other Provider [phone] DANIA Ayala Attending Provider [phone] Dr. Marc Gusman Primary Care Provider Dr. Marc Gusman Referring Provider [phone] Dr. Lindsay Amaral Attending Provider Dr. Katie Parekh Attending Provider [phone] Dominick BARN MANAGER, TASHA Mcrae Attending Provider Angelina Gusman MD Primary Care Provider Angelina Gusman MD Primary Care Provider ANGELINA GUSMAN Attending Unavailable UZMA CHRISTOPHER Monisha Primary Care Unavailable SANTO WANG Attending Unavailable UZMA CHRISTOPHER Monisha Referring Unavailable UZMA CHRISTOPHER Monisha Primary Care Unavailable CHI GUSMANER Monisha Primary Care Unavailable ANGELINA GUSMAN Primary Care Unavailable Bethany SHARIF, Dr. Wilson Attending Provider Dr. Katie Parekh MD Referring Provider Dr. Marla Arthur DO Attending Provider Dion NAJERA, Rekha Attending Provider [phone] Rekha Ayala CNM Referring Provider [phone] Dr. Katie Parekh MD Attending Provider Dr. Katie Parekh MD Referring Provider No caregivers non medical, Md Primary Care Provider Lissette vailable Dion NAJERA, Rekha S Unavailable [phone] Care Physician, No Primary Primary Care Provider Unavailable Dr. Katie Parekh MD Attending Provider [phone] Care Physician, No Primary Referring Provider Un available Katie Parekh Attending Unavailable Marla Arthur Attending Unavailabl Rekha Nevarez Attending Unavailable Rekha Ayala Referring Unavailable Care Physician, No Primary Primary Care Unava ilable Rekha Ayala Attending Unavailable Rekha Aayla Attending Unavailable Care Physician, No Primary Primary Care Unava ilable Rekha Ayala Attending Unavailable Care Physician, No Primary Primary Care Unava ilable Katie Parekh Attending Unavailable Katie Parekh Referring Unavailable Katie Parekh Attending Unavailable Rekha Ayala Referring Unavailable Rekha Ayala Attending Unavailable Care Physician, No Primary Primary Care Unava ilable Rekha Ayala Attending Unavailable Rekha Ayala Referring Unavailable Marla Arthur Attending UnavailRekha Toney Attending Unavailable Rekha Ayala Referring Unavailable Rekha Ayala Referring Unavailable Rekha Ayala Attending Unavailable Marla Arthur Attending UnavailMarla Washington Referring UnavailKatie Toro Attending Unavailable Katie Parekh Referring Unavailable Marla Arthur Attending UnavailRekha Toney Attending Unavailable Rekha Ayala Attending Unavailable Rekha Ayala Attending Unavailable Katie Parekh Attending Unavailable Care Physician, No Primary Primary Care Unava ilable Care Physician, No Primary Referring Unava ilable KATIE PAREKH Referring UnavailANGELINA Song Primary Care Unavailable LI SEBASTIAN Attending Unavailable NO PRIMARY CARE, Primary Care Unavailable LI SEBASTIAN Attending Unavailable REKHA AAYLA Referring Unavailable NO PRIMARY CARE, Primary Care Unavailable CEDRICK DIANA Attending Unavailable REKHA AYALA Referring Unavailable NO PRIMARY CARE, Primary Care Unavailable MICHELLE REYES Attending Unavailable MICHELLE REYES Referring Unavailable NO PRIMARY CARE, Primary Care Unavailable CEDRICK DIANA Attending Unavailable REKHA AYALA Referring Unavailable KATIE PAREKH Referring UnavailCEDRICK Vernon Attending Unavailable NO PRIMARY CAREMD Primary Care Unavailable NIA BADILLO Attending Unavailable NO PRIMARY CARE, Primary Care Unavailable KATIE PAREKH Referring UnavailWILMAR Fraga Attending Unavailable NO PRIMARY CAREMD Primary Care Unavailable REKHA AYALA Referring Unavailable NO PRIMARY CAREMD Primary Care Unavailable PATRICIA COLEY Attending Unavailable KATIE PAREKH Referring Unavailjelly carney Medications Current Medications Medication Drug Class(es) Dates Sig (Normalized) Sig (Original) doxylamine succinate 25 mg oral tablet (1 source) Start: 12-09-2021 take 1 tablet by mouth at bedtime Doxylamine Succinate (Unisom (Doxylamine)) 25 mg tablet Active 25 MG PO AT BEDTIME December 09, 2021 12:00am Multivit 46-Uqeb-Pqsawh 1-Dha (Pnv-Dha) 27 mg iron-1 mg -300 mg capsule (8 sources) Start: 11-06-2021 Multivit 12-Fdgq-Dambbf 1-Dha (Pnv-Dha) 27 mg iron-1 mg -300 mg capsule Active NMA PO November 06, 2021 12:00am Start: 11-06-2021 Multivit 47-Ir on-Folate 1-Dha (Pnv-Dha) 27 mg iron-1 mg -300 mg capsule Active CAP PO November 06, 2021 12:00am ondansetron 4 mg disintegrating oral tablet (6 sources) Serotonin-3 Receptor Antagonist Start: 01-21-2024 take 1 tablet by mouth every six hours as needed for nausea and vomiting Ondansetron 4 mg tablet,disintegrating Active 4 mg PO EVERY 6 HOURS as needed for nausea and vomiting January 21, 2024 1:00am Start: 11-13-2021 take 4 mg by mouth e very eight hours Ondansetron Active 4 MG PO Q8H November 13, 2021 12:00am Vit-Fe Fumarate-FA ( PO) (1 source) Vit-Fe Fumarate-FA ( PO) Take by mouth Active pyridoxine hydrochloride 25 mg oral tablet (1 source) Start: 12-09-2021 take 25 mg by mouth once daily Pyridoxine (Vitamin B6) Active 25 MG PO DAILY December 09, 2021 12:00am ursodiol 300 mg oral capsule (4 sources) Bile Acid Start: 07-11-2024 take 1 capsule by mouth twice daily Ursodiol 300 mg capsule Active 300 mg PO TWICE A DAY July 11, 2024 12:00am Completed/Discontinued Medications Medication Drug Class(es) Dates Sig (Normalized) Sig (Original) norethindrone 0.35 mg oral tablet (11 sources) Start: 07-21-2022 End: 07-28-2023 take 1 tablet by mouth once daily Norethindrone (Contraceptive) 0.35 mg tablet Discontinued 0.35 mg PO DAILY December 24, 2022 12:42pm July 28, 2023 10:23am start day 1 of menstrual cycle terconazole 4 mg/ml vaginal cream (4 sources) Azole Antifungal Start: 03-20-2024 End: 03-27-2024 Terconazole 0.4 % cream Discontinued 1 NMA VAGINAL AT BEDTIME 45 7 March 20, 2024 1:00am March 26, 2024 1:00am March 27, 2024 1:10am Problems Active Problems Problem Classification Problem Date Documented Date Episodic/Chronic Bacterial infection; unspecified site (16 sources) Bacteria present; Translations: [Streptococcus, group B, as the cause of diseases classified elsewhere] 05-19-2022 Episodic Comment on above: PCN in labor Biliary tract disease (2 sources) Cholestasis; Translations: [Obstruction of bile duct] 07-15-2024 Chronic Immunizations and screening for infectious disease (6 sources) Anti-nuclear factor positive; Translations: [Other specified abnormal immunological findings in serum] Onset: 12-25-2022 12-25-2022 Episodic Malaise and fatigue (6 sources) Fatigue; Translations: [Chronic fatigue, unspecified] Onset: 11-28-2022 12-10-2022 Chronic Malaise and fatigue (4 sources) Fatigue; Translations: [Other malaise and fatigue] Onset: 11-28-2022 11-28-2022 Episodic Nausea and vomiting (1 source) Vomiting, unspecified; Translations: [Vomiting, unspecified] Onset: 07-11-2024 Episodic Other bone disease and musculoskeletal deformities (20 sources) Segmental and somatic dysfunction; Translations: [Segmental and somatic dysfunction of cervical region] 01-15-2022 Episodic Other bone disease and musculoskeletal deformities (19 sources) Segmental and somatic dysfunction of cervical region; Translations: [Nonallopathic lesions, cervical region] 01-27-2022 Episodic Other bone disease and musculoskeletal deformities (19 sources) Segmental and somatic dysfunction of lumbar region; Translations: [Nonallopathic lesions, lumbar region] 01-27-2022 Episodic Other bone disease and musculoskeletal deformities (19 sources) Segmental and somatic dysfunction of thoracic region; Translations: [Nonallopathic lesions, thoracic region] 01-27-2022 Episodic Other complications of ; puerperium affecting management of mother (1 source) Other disorders of breast associated with and the puerperium; Translations: [Other and unspecified disorder of breast associated with childbirth, condition or complication] 06-12-2022 Episodic Other complications of ; puerperium affecting management of mother (1 source) Other disorders of ; Translations: [Engorgement of breasts associated with childbirth, condition or complication] 06-12-2022 Episodic Other complications of (20 sources) Maternal obesity complicating , childbirth and the puerperium, antepartum; Translations: [Obesity complicating , unspecified trimester] 11-13-2021 Chronic Comment on above: [id number] Other complications of (16 sources) Obesity complicating , unspecified trimester; Translations: [Obesity complicating , childbirth, or the puerperium, unspecified as to episode of care or not applicable] Onset: 07-28-2024 Chronic Other complications of (20 sources) High risk ; Translations: [Supervision of high risk , unspecified, unspecified trimester] 02-25-2024 Episodic Comment on above: PRR, , SOLANGE , boy, PC Pippa, Luis Other complications of (20 sources) Abnormal findings on screening of mother; Translations: [Abnormal chromosomal and genetic finding on screening of mother] 02-25-2024 Episodic Comment on above: high risk low fraction 1:17 for triploidy, tri18 tri 13. patient requests repeat NIPT low risk,and MFM referral for NT screen possible CVS eventually Other complications of (20 sources) Abnormal placenta affecting management of mother; Translations: [Other malformation of placenta, unspecified trimester] 04-14-2024 Episodic Comment on above: per mfm, NO q 4 week scans needed Other complications of (4 sources) Pruritus of ; Translations: [Diseases of the skin and subcutaneous tissue complicating , unspecified trimester] 07-11-2024 Episodic Comment on above: elevated AST. cbc an d acids pending. MFM consult elevated AST. cbc nl and bile acids 7.7. MFM consult Other complications of (4 sources) Cholestasis of ; Translations: [Cholestasis during ] 07-11-2024 Episodic Comment on above: twice weekly BPPs, c onsult with MFM per KW twice weekly BPPs, w eekly labs, consult with MFM per KW. MFM said unclear diagnosis- await telehealth visit to determine deliveyr timing Other complications of (1 source) Other malformation of placenta, unspecified trimester; Translations: [Other malformation of placenta, unspecified trimester] Onset: 07-28-2024 Episodic Other complications of (1 source) Abnormal chromosomal and genetic finding on screening of mother; Translations: [Abnormal chromosomal and genetic finding on screening of mother] Onset: 07-28-2024 Episodic Other complications of (1 source) Supervision of high risk , unspecified, unspecified trimester; Translations: [Supervision of high risk , unspecified, unspecified trimester] Onset: 07-28-2024 Episodic Other complications of (1 source) Diseases of the skin and subcutaneous tissue complicating , unspecified trimester; Translations: [Diseases of the skin and subcutaneous tissue complicating , unspecified trimester] Onset: 07-28-2024 Episodic Other connective tissue disease (2 sources) Fibromyalgia; Translations: [Fibromyalgia] Onset: 12-25-2022 12-25-2022 Episodic Other connective tissue disease (1 source) Fibromyalgia; Translations: [Fibromyalgia] Onset: 12-25-2022 Episodic Other inflammatory condition of skin (1 source) Itching ; Translations: [Pruritus, unspecified] 12-25-2022 Episodic Other inflammatory condition of skin (3 sources) Pruritus, unspecified; Translations: [Pruritus, unspecified] Onset: 12-25-2022 Episodic Other liver diseases (2 sources) Enzyme level - finding; Translations: [Transaminitis] 07-15-2024 Episodic Other non-traumatic joint disorders (4 sources) Pain in right knee; Translations: [Chronic pain of right knee] Onset: 11-28-2022 11-28-2022 Episodic Other non-traumatic joint disorders (2 sources) Joint pain; Translations: [Pain in unspecified joint] 12-10-2022 Episodic Other non-traumatic joint disorders (4 sources) Pain in unspecified joint; Translations: [Pain in unspecified joint] Onset: 12-10-2022 Episodic Other and delivery including normal (20 sources) Normal ; Translations: [Encounter for supervision of normal first , unspecified trimester] Onset: 01-21-2024 Episodic Comment on above: SM IAL girl Auro ra 40 PRR SOLANGE 06/10/22 girl Pippa Spouse Luis NIPT low risk. nl NT screen, nl anatomy, nl GCT NIPT low risk, charito er neg. . anatomy nl. Other screening for suspected conditions (not mental disorders or infectious disease) (2 sources) Patient encounter status; Translations: [Screening for diabetes mellitus] Episodic Polyhydramnios and other problems of amniotic cavity (4 sources) Spontaneous rupture of membranes 06-08-2022 Episodic Residual codes; unclassified (20 sources) Family history of cancer of colon; Translations: [Family history of malignant neoplasm of digestive organs] 11-06-2021 Episodic Comment on above: Father 50 yo Survivo r Residual codes; unclassified (20 sources) Family history of malignant neoplasm of digestive organs; Translations: [Family history of malignant neoplasm of gastrointestinal tract] Onset: 07-28-2024 Episodic Residual codes; unclassified (1 source) 35 weeks gestation of ; Translations: [35 weeks gestation of ] Onset: 07-28-2024 Episodic Residual codes; unclassified (1 source) 33 weeks gestation of ; Translations: [33 weeks gestation of ] Onset: 07-11-2024 Episodic Residual codes; unclassified (1 source) 30 weeks gestation of ; Translations: [30 weeks gestation of ] Onset: 06-17-2024 Episodic Spondylosis; intervertebral disc disorders; other back problems (20 sources) Chronic low back pain; Translations: [Lumbago] Onset: 11-28-2022 01-15-2022 Episodic Unclassified (1 source) Intrahepatic cholestasis of , unspecified trimester; Translations: [Intrahepatic cholestasis of , unspecified trimester] Onset: 07-28-2024 Past or Other Problems Problem Classification Problem Date Documented Date Episodic/Chronic Other complications of (1 source) Vomiting of , unspecified; Translations: [Vomiting of , unspecified] Onset: 01-21-2024 Episodic Other female genital disorders (1 source) Other specified noninflammatory disorders of vagina; Translations: [Other specified noninflammatory disorders of vagina] Onset: 04-08-2024 Episodic Residual codes; unclassified (1 source) 20 weeks gestation of ; Translations: [20 weeks gestation of ] Onset: 04-14-2024 Episodic Residual codes; unclassified (1 source) 16 weeks gestation of ; Translations: [16 weeks gestation of ] Onset: 03-17-2024 Episodic Unclassified (4 sources) Spontaneous rupture of membranes; Translations: [Spontaneous rupture of amniotic membranes] 06-08-2022 NEGATED: Highlighted row has been ruled out!Unclassified (1 source) No known active problems 03-28-2024 Results Test Name Value Interpretation Reference Range Facility Rule out Beta Strep (Grp. B) on 08-01-2024 MONALISA Streptococcus agalactiae (B) Amount Growth Growth Streptococcus agalactiae (B): REACTION Ampicillin Islt ELIZA <=0.25 cefTRIAXone Islt ELIZA <=0.12 S Clindamycin Islt ELIZA >=1 R Clindamycin.induced Susc Islt NEG Linezolid Islt ELIZA <=2 S Vancomycin Islt ELIZA 0.5 S Normal [facility] Comment on above: Performed By: #### M 100.3400, L500.4050, L100.0100 ####[facility] [address] [place], [place], [address] Biophysical Prof W/O Non Str eson 07-28-2024 Biophysical Prof W/O Non Stres [facility] Imaging Services [address] [place], [place] [id number] Biophysical Prof W/O Non Stres MR#: [id number] Acct: [id number] Name: ORLY RAY Rep #: [id number] : 1990 F 34 From: [place] huddl[place] MD PCP: Care Physician,No Primary Status: REG CLI Study: Biophysical Prof W/O Non Stres Date of Exam: 0 07/28/24 Exam# [id number] Ordering Dr: Rekha Ayala CNM PROCEDURE: BIOPHYSICAL PROF W/O NON STRES 07/28/2024 REASON FOR EXAM: WELL BEING TECHNIQUE: High resolution obstetric ultrasound performed using a 2D transducer. Standard views obtained, including biometry, anatomy survey, and Doppler studies. COMPARISON: Prior study dated July 20, 2024. FINDINGS Number: 1 Position: Vertex Placental Position: Posterior and not low-lying. Placental Abnormalities: ESTIMATED GESTATIONAL AGE: Baseline: 35 weeks and 6 days ESTIMATED DATE OF DELIVERY: Baseline: August 26, 2024. BIOPHYSICAL ASSESSMENT: Amniotic Fluid Volume: 3.9 cm 2.9 cm Amniotic Fluid Index: 11.7 (8-24 cm normal range) Cardiac Motion: (average) Trunk and Limb Motion: Present. Biophysical profile: Breathing movements: 2 Gross body movements: 2 tone: 2 Amniotic fluid volume: 2 Total score: 8/8 US/Biophysical Prof W/O Non Stres IMPRESSION: Normal biophysical profile score. Reading Location: [place] [address] CC: DANIA Ayala; No Primary Care Physician Farrowing Manager: Signed Normal [facility] CBC W/Diff, Automatedon 05-2 Absolute Lymph 1.42 X10 3/uL Normal 0.83-4.51 [facility] Comment on above: Performed By: #### M 100.3400, L500.4050, L100.0100 ####[facility] [address] [place], [address] Absolute Neut 5.8 X10 3/uL Normal 2.0-7.7 [facility] Comment on above: Performed By: #### M 100.3400, L500.4050, L100.0100 ####[facility] [address] [place], [address] Basophils/100 WBC (Bld) 0.4 % Normal 0-1 [facility] Comment on above: Performed By: #### M 100.3400, L500.4050, L100.0100 ####[facility] [address] [place], [address] Eosinophils/100 WBC (Bld) 0.5 % Normal 0-5 [facility] Comment on above: Performed By: #### M 100.3400, L500.4050, L100.0100 ####[facility] [address] [place], [address] Erythrocyte distribution width (RBC) [Ratio] 13.0 % Normal 11.6-14.6 [facility] Comment on above: Performed By: #### M 100.3400, L500.4050, L100.0100 ####[facility] [address] [place], [address] Hematocrit (Bld) [Volume fraction] 33.9 % Low 37-47 [facility] Comment on above: Performed By: #### M 100.3400, L500.4050, L100.0100 ####[facility] [address] [place], [address] Hemoglobin (Bld) [Mass/Vol] 11.0 g/dL Low 12.0-15.0 [facility] Comment on above: Performed By: #### M 100.3400, L500.4050, L100.0100 ####[facility] [address] [place], [address] IG% 0.400 Normal 0.0-0.9 [facility] Comment on above: Result Comment: IG% - Immature Granulocytes (promyelocytes, myelocytes and metamyelocytes) > 1% indicates that a LEFT SHIFT is Present. Performed By: #### M 100.3400, L500.4050, L100.0100 ####[facility] [address] [place], [address] Lymphocytes/100 WBC (Bld) 18.3 % Low 19-41 [facility] Comment on above: Performed By: #### M 100.3400, L500.4050, L100.0100 ####[facility] [address] [place], [address] MCH (RBC) [Entitic mass] 26.5 pg Low 27.0-32.0 [facility] Comment on above: Performed By: #### M 100.3400, L500.4050, L100.0100 ####[facility] [address] [place], [address] MCHC (RBC) [Mass/Vol] 32.4 g/dL Normal 32-36 [facility] Comment on above: Performed By: #### M 100.3400, L500.4050, L100.0100 ####[facility] [address] [place], [address] MCV (RBC) [Entitic vol] 81.7 fL Normal 81-99 [facility] Comment on above: Performed By: #### M 100.3400, L500.4050, L100.0100 ####[facility] [address] [place], [address] Monocytes/100 WBC (Bld) 5.7 % Normal 0-10 [facility] Comment on above: Performed By: #### M 100.3400, L500.4050, L100.0100 ####[facility] [address] [place], [address] Neutrophils/100 WBC (Bld) 74.7 % High 47-70 [facility] Comment on above: Performed By: #### M 100.3400, L500.4050, L100.0100 ####[facility] [address] [place], [address] Nucleated RBC (Bld) [#/Vol] 0 10*3/uL Normal 0-5 [facility] Comment on above: Performed By: #### M 100.3400, L500.4050, L100.0100 ####[facility] [address] [place], [address] Platelet mean volume (Bld) [Entitic vol] 10.7 fL Normal 6.2-12.0 [facility] Comment on above: Performed By: #### M 100.3400, L500.4050, L100.0100 ####[facility] [address] [place], [address] Platelets (Bld) [#/Vol] 276 10*3/uL Normal 150-450 [facility] Comment on above: Performed By: #### M 100.3400, L500.4050, L100.0100 ####[facility] [address] [place], [address] RBC (Bld) [#/Vol] 4.15 10*6/uL Low 4.2-5.4 [facility] Comment on above: Performed By: #### M 100.3400, L500.4050, L100.0100 ####[facility] [address] [place], [address] RDW SD 37.8 fl Normal 35.1-43.9 [facility] Comment on above: Performed By: #### M 100.3400, L500.4050, L100.0100 ####[facility] [address] [place], [address] WBC (Bld) [#/Vol] 7.8 10*3/uL Normal 4.4-11.0 [facility] Comment on above: Performed By: #### M 100.3400, L500.4050, L100.0100 ####[facility] [address] [place], [address] Comprehensive Metabolic Prof [facility] 07-28-2024 Albumin [Mass/Vol] 3.2 g/dL Low 3.5-5.0 [facility] Comment on above: Performed By: #### M 100.3400, L500.4050, L100.0100 ####[facility] [address] [place], [address] Albumin/Globulin [Mass ratio] 0.9 {ratio} Normal 0.9-2.4 [facility] Comment on above: Performed By: #### M 100.3400, L500.4050, L100.0100 ####[facility] [address] [place], [address] ALK PHOS 160 U/L High 35-104 [facility] Comment on above: Performed By: #### M 100.3400, L500.4050, L100.0100 ####[facility] [address] [place], [address] ALT [Catalytic activity/Vol] 34 U/L Normal <=34 [facility] Comment on above: Performed By: #### M 100.3400, L500.4050, L100.0100 ####[facility] [address] [place], [address] AST [Catalytic activity/Vol] 24 U/L Normal <=31 [facility] Comment on above: Performed By: #### M 100.3400, L500.4050, L100.0100 ####[facility] [address] [place], [address] Bilirubin [Mass/Vol] 0.65 mg/dL Normal 0.00-1.30 [facility] Comment on above: Performed By: #### M 100.3400, L500.4050, L100.0100 ####[facility] [address] [place], [address] BUN/CRE 12.5 RATIO Normal 10-20 [facility] Comment on above: Performed By: #### M 100.3400, L500.4050, L100.0100 ####[facility] [address] [place], [address] Calcium [Mass/Vol] 9.0 mg/dL Normal 7.6-11.0 [facility] Comment on above: Performed By: #### M 100.3400, L500.4050, L100.0100 ####[facility] [address] [place], [address] Chloride [Moles/Vol] 104 mmol/L Normal 98-108 [facility] Comment on above: Performed By: #### M 100.3400, L500.4050, L100.0100 ####[facility] [address] [place], [address] CO2 [Moles/Vol] 21.0 mmol/L Normal 21.0-32.0 [facility] Comment on above: Performed By: #### M 100.3400, L500.4050, L100.0100 ####[facility] [address] [place], [address] Creatinine [Mass/Vol] 0.71 mg/dL Normal 0.70-1.20 [facility] Comment on above: Performed By: #### M 100.3400, L500.4050, L100.0100 ####[facility] [address] [place], [address] GAP 12 Normal 5-15 [facility] [facility] Comment on above: Performed By: #### M 100.3400, L500.4050, L100.0100 ####[facility] [address] [place], [address] GFR/1.73 sq M.predicted among non-blacks MDRD (S/P/Bld) [Vol rate/Area] 115 mL/min/{1.73_m2} Normal >60 [facility] Comment on above: Result Comment: mL/m in/1.73m2 CKD-EPI Creatinine Equation (2020) Performed By: #### M 100.3400, L500.4050, L100.0100 ####[facility] [address] [place], [address] Globulin (S) [Mass/Vol] 3.4 g/dL Normal 2.2-4.2 [facility] Comment on above: Performed By: #### M 100.3400, L500.4050, L100.0100 ####[facility] [address] [place], [address] Glucose [Mass/Vol] 93 mg/dL Normal 70-99 [facility] Comment on above: Performed By: #### M 100.3400, L500.4050, L100.0100 ####[facility] [address] [place], [address] Potassium [Moles/Vol] 3.8 mmol/L Normal 3.3-5.1 [facility] Comment on above: Performed By: #### M 100.3400, L500.4050, L100.0100 ####[facility] [address] [place], [address] Sodium [Moles/Vol] 137 mmol/L Normal 133-145 [facility] Comment on above: Performed By: #### M 100.3400, L500.4050, L100.0100 ####[facility] [address] [place], [address] T PROT 6.7 g/dL Normal 5.9-8.4 [facility] Comment on above: Performed By: #### M 100.3400, L500.4050, L100.0100 ####[facility] [address] [place], [address] Urea nitrogen [Mass/Vol] 9 mg/dL Normal 4-19 [facility] Comment on above: Performed By: #### M 100.3400, L500.4050, L100.0100 ####[facility] [address] [place], [address] [employer] Visit Reporton 07-28-2024 [employer] Visit Report [facility] [address], [address] [place] [address] OFFICE VISIT Date of Service: 07/28/24 MR#: [id number] Acct: [id number] Name: ORLY RAY Rep #: [id number] : 1990 Provider: Dr. Katie duarte MD Age/Sex: 34/F Location[place] [facility] Status: Signed Intake Vital Signs 06/03/24 11:24 07/11/24 11:22 07/28/24 13:10 Height 5 ft 6 in 5 ft 6 in 5 ft 6 in Weight: 235 lb 2 oz BMI 37.9 BP 117/68 Intake Visit Reasons: 36wk ob Sports Medicine [place]se[place] Required: No Is patient in pain?: No Feel stressed/tense/nervous/ anxious/difficulty sleeping: not at all Allergies No Known Allergies Allergy (Verified 07/28/24 13:11) Medications ???Medication ???Instructions ???Recorded ???Confirmed ???Type multivitamin no.47-iron fum 27 cap PO 11/06/21 07/28/24 History mg-folate no.1 1 mg-dha 300 mg capsule (PNV-DHA) ondansetron 4 mg disintegrating 4 mg PO Q6H PRN nausea and 4 07/28/24 Rx tablet vomiting #90 tabs ursodiol 300 mg capsule 300 mg PO BID #60 caps 07/11/24 Rx Last Menstrual Period: 11/20/23 Zika: Zika virus screening: Negative : No PFSH PFSH Medical History Back pain Vaginal delivery Family History Father Colon cancer, Onset Age: 50 Survivor Social History adopted: No household members: spouse and children housing: house number of children: 1 current occupational 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 occupational exposures/hazards: Yes pets and animals: Yes pets and animals: cat(s), dog(s) and farm animals leisure activities: sports history of recent travel: No sexually active: Yes Smoking Status: Never smoker second hand exposure: No alcohol intake: former details: Not while substance use type: does not use well-balanced diet: daily or most days caffeine: Yes Type: coffee Number of servings: 2 and tea Number of servings: 1 eating out: 1-3 times/week during the past year weight has: increased > 10 lbs what type of physical activity do you participate in: walking frequency: 1-2 times per week duration: 15-30 minutes/day grazyna/mosque: [employer] seatbelt use: always do you feel safe at home: Yes additional social history: Spouse Luis- Ops Manager History 2 Elective abortions Hx Para 1 Spontaneous abortions Hx # Term Pregnancies 1 Ectopic pregnancies Hx # Pregnancies Multiple births # of living children 1 Past Pregnancies Del. Date Name GA/Weeks Outcome Route Bth Weight Gen Labor Lgth Anesthesia Del Locatn Provider FOB 06/08/22 Pippa 39 live - full term 8lb 1oz Female [facility] Mike celestin Delivery Date: 06/08/22 Last Updated by: Nivia Castillo IOL HPI 36wk ob Details: ORLY RAY is a 34 year old who presents for routine OB visit. OB Visit [facility] Calculator Estimated Delivery Date Method Current WG Current Estimate 08/26/24 LMP (Certain) 35w 6d Expected Delivery Route/Plan Labor Preferences- CB/BF classes: [] labor support person: [] labor intervention preferences: [] pain management options preferred: [] cut cord/dad catch: [] : [] PP control planned: [] discussed possible routes of delivery and associated risks: [] special requests: [] Specific Issue/Plans Covid status: [] Flu vaccine: [] Tdap vaccine: [] Rhogam: [] LARC form signed: [] Problem list reviewed and updated with the most current plan of care details and appropriate orders placed. Relevant counseling for the gestational age provided. Continue routine care and follow up unless otherwise noted in visit notes/problem list details Initial Weight: 222 lb Date -???-???-???-???-???-?? ?-???-???-???-???-???-? ??- EGA Weight BP Urine Prot -???-???-???-???-???-?? ?-???-???-???-???-???-? ??- Glucose FHR FuHt Pres Dilation -???-???-???-???-???-?? ?-???-???-???-???-???-? ??- Effaced St Visit Note 01/21/24 -???-???-???-???-???-?? ?-???-???-???-???-???-? ??- 8w 6d 222 lb (+0 oz) 114/75 -???-???-???-???-???-?? ?-???-???-???-???-???-? ??- 180 -???-???-???-???-???-?? ?-???-???-???-???-???-? ??- KW- CRL cons with dates. accepts NIPT. flu shot today. 02/17/24 -???-???-???-???-???-?? ?-???-???-???-???-???-? ??- 12w 5d 218 lb 8 oz (-3 lb 8 oz) 126/78 Negative -???-???-???-???-???-?? ?-???-???-???-???-???-? ??- Negative 150 -???-???-???-???-???-?? ?-???-???-???-???-???-? ??- SM- reviewed NIPT results today, normal bedside scan but limited positioning. offered immediate MFM referral for possible (more content not included)... Normal [facility] Miscellaneous Lab Procedureo n 07-27-2024 [facility] LAB TEST Normal [facility] Comment on above: Order Comment: send to [facility] ACID Result Comment: Sent directly to testing facility per ordering physician. Performed By: #### L 500.4050, L801.1541 ####[facility] [address] [place], [place], [id number] Biophysical Prof W/O Ciara Mondragon eson 07-20-2024 Biophysical Prof W/O Ciara Mesa [facility] Imaging Services [address] [place], [place] [id number] Biophysical Prof W/O Ciara Mesa MR#: [id number] Acct: [id number] Name: ORLY RAY Rep #: [id number] : 1990 F 34 From: José Miguel Baptiste MD PCP: Care Physician,No Primary Status: REG CLI Study: Biophysical Prof W/O Non Stres Date of Exam: 0 07/20/24 Exam# [id number] Ordering Dr: Rekha Ayala CNM PROCEDURE: BIOPHYSICAL PROF W/O NON STRES 07/20/2024 REASON FOR EXAM: WELL BEING TECHNIQUE: Transabdominal OB ultrasound for biophysical profile COMPARISON: None available FINDINGS Single live intrauterine heart tones 141 beats per minute. Presentation is cephalic. ANN MARIE 11.9 cm, largest fluid pocket 7.2 x 6 0.0 cm Estimated age by LMP 35 weeks and 3 days, SOLANGE 08/26/2024 Grade 1 posterior placenta appears within limits. Not low-lying breathing movements: 2/2 Gross body movements: 2/2 Tone: 2/2 Amniotic fluid volume: 2/2 Total: 8/8 US/Biophysical Prof W/O Non Stres IMPRESSION: BIOPHYSICAL PROFILE SCORE 8/8. Single live intrauterine as above. Reading Location: [id number] CC: DANIA Ayala; No Primary Care Physician Farrowing Manager: Signed [facility] BILE ACIDS, FRACTIONATED AND TOTALon 07-15-2024 Total Chenodeoxycholic Acid 1.68 nmol/mL Invalid Interpretation Code <=6.00 [facility] Comment on above: Order Comment: Relea se to patient->Automatic Total Cholic Acid 2.11 nmol/mL Invalid Interpretation Code <=5.00 [facility] Comment on above: Order Comment: Relea se to patient->Automatic Total Deoxycholic Acid 2.62 nmol/mL Invalid Interpretation Code <=6.00 [facility] Comment on above: Order Comment: Relea se to patient->Automatic Total Fractionated Bile Acids 14.21 nmol/mL Invalid Interpretation Code <=19.00 [facility] Comment on above: Order Comment: Relea se to patient->Automatic Result Comment: ADDITIONAL INFORMATION Reference intervals were calculated from a 84-beaa-fdlynn donor cohort. Liquid Chromatography-Tandem Mass Spectrometry (LC-MS/MS). This test was developed and its performance characteristics determined by [facility] in a manner consistent with CLIA requirements. This test has not been cleared or approved by the U.S. Food and Drug Administration. Test Performed by: [place] [address] [employer]: Elizabeth Zhao Ph.D.; CLIA# [id number] Total Ursodeoxycholic Acid 7.80 nmol/mL High <=2.00 [facility] Comment on above: Order Comment: Relea se to patient->Automatic BILI, CONJUGATEDon Bilirubin.indirect [Mass/Vol] mg/dL Invalid Interpretation Code <=0.7 [facility] Comment on above: Order Comment: Relea se to patient->Automatic Result Comment: Veri fied By: [id number] Bili, ConjugatedOrdered By: Background Lab on 07-15-2024 Bilirubin.direct [Mass/Vol] mg/dL NINF - 0.7 mg/dL [facility] Comment on above: Verified By: [id number] Interpretation and review of laboratory results Normal [facility] CERULOPLASMINon 07-15-2024 Ceruloplasmin 54.6 mg/dL High 20.0 - 51.0 [facility] Comment on above: Order Comment: Relea se to patient->Automatic Result Comment: Test Performed by: [place] [id number] [employer]: Elizabeth Zhao Ph.D.; CLIA# [id number] COMPLETE BLOOD COUNT WITH DI FFERENTIALon 07-15-2024 Basophil \P\ 0.02 10E3/???L Invalid Interpretation Code 0.02-0.06 [facility] Comment on above: Order Comment: Relea se to patient->Automatic Basophils/100 WBC (Bld) 0.3 % Invalid Interpretation Code 0.3-0.9 [facility] Comment on above: Order Comment: Relea se to patient->Automatic Eosinophil \P\ 0.06 10E3/???L Invalid Interpretation Code 0.04-0.27 [facility] Comment on above: Order Comment: Relea se to patient->Automatic Eosinophils/100 WBC (Bld) 0.9 % Invalid Interpretation Code 0.6-3.8 [facility] Comment on above: Order Comment: Relea se to patient->Automatic Erythrocyte distribution width (RBC) [Ratio] 12.5 % Invalid Interpretation Code 11.9-14.8 [facility] Comment on above: Order Comment: Relea se to patient->Automatic Hematocrit (Bld) [Volume fraction] 38.6 % Invalid Interpretation Code 35.5-44.6 [facility] Comment on above: Order Comment: Relea se to patient->Automatic Hemoglobin (Bld) [Mass/Vol] 12.5 g/dL Invalid Interpretation Code 11.4-14.8 [facility] Comment on above: Order Comment: Relea se to patient->Automatic Immature granulocytes/100 WBC (Bld) 0.3 % Invalid Interpretation Code 0.2-0.5 [facility] Comment on above: Order Comment: Relea se to patient->Automatic Result Comment: Mila ture Granulocyte Percent includes promyelocytes, myelocytes,and metamyelocytes. IG% > 1.0 indicates a left shift is present. With automated differentials, bands are included in the neutrophil count and not in the Immature Granulocyte Percent. Lymphocyte \P\ 1.32 10E3/???L Low 1.51-2.99 [facility] Comment on above: Order Comment: Relea se to patient->Automatic Lymphocytes/100 WBC (Bld) 19.8 % Low 21.8-42.1 [facility] Comment on above: Order Comment: Relea se to patient->Automatic MCH (RBC) [Entitic mass] 26.7 pg Invalid Interpretation Code 25.7-31.2 [facility] Comment on above: Order Comment: Relea se to patient->Automatic MCHC 32.4 % Invalid Interpretation Code 31.3-34.0 [facility] Comment on above: Order Comment: Relea se to patient->Automatic MCV (RBC) [Entitic vol] 82.5 fL Invalid Interpretation Code 80.7-93.7 [facility] Comment on above: Order Comment: Relea se to patient->Automatic Monocyte \P\ 0.57 10E3/???L Invalid Interpretation Code 0.36-0.77 [facility] Comment on above: Order Comment: Relea se to patient->Automatic Monocytes/100 WBC (Bld) 8.6 % Invalid Interpretation Code 5.6-10.2 [facility] Comment on above: Order Comment: Relea se to patient->Automatic Neutrophil \P\ 4.67 10E3/???L Invalid Interpretation Code 2.43-6.42 [facility] Comment on above: Order Comment: Relea se to patient->Automatic Neutrophils/100 WBC (Bld) 70.1 % High 46.0-68.6 [facility] Comment on above: Order Comment: Relea se to patient->Automatic Nucleated RBC/100 WBC (Bld) [Ratio] 0.0 % Invalid Interpretation Code 0.0-0.0 [facility] Comment on above: Order Comment: Relea se to patient->Automatic Platelet mean volume (Bld) [Entitic vol] 10.2 fL Invalid Interpretation Code 9.6-11.9 [facility] Comment on above: Order Comment: Relea se to patient->Automatic Platelets 242 10E3/???L Invalid Interpretation Code 150-400 [facility] Comment on above: Order Comment: Relea se to patient->Automatic RBC 4.68 10E6/???L Invalid Interpretation Code 4.03-4.91 [facility] Comment on above: Order Comment: Relea se to patient->Automatic WBC 6.7 10E3/???L Invalid Interpretation Code 4.9-10.0 [facility] Comment on above: Order Comment: Relea se to patient->Automatic COMPREHENSIVE METABOLIC PANE Andre 07-15-2024 Albumin [Mass/Vol] 3.1 g/dL Low 3.5-5.0 [facility] Comment on above: Order Comment: Relea se to patient->Automatic Result Comment: Veri fied By: [id number] ALP [Catalytic activity/Vol] 152 U/L High 35-104 [facility] Comment on above: Order Comment: Relea se to patient->Automatic Result Comment: Veri fied By: [id number] ALT [Catalytic activity/Vol] 48 U/L High <=34 [facility] Comment on above: Order Comment: Relea se to patient->Automatic Result Comment: Veri fied By: [id number] AST [Catalytic activity/Vol] 26 U/L Invalid Interpretation Code <=31 [facility] Comment on above: Order Comment: Relea se to patient->Automatic Result Comment: Veri fied By: [id number] BILI,TOTAL 0.5 mg/dL Invalid Interpretation Code <=1.0 [facility] Comment on above: Order Comment: Relea se to patient->Automatic Result Comment: Veri fied By: [id number] Calcium [Mass/Vol] 8.6 mg/dL Invalid Interpretation Code 7.6-11.0 [facility] Comment on above: Order Comment: Relea se to patient->Automatic Result Comment: Veri fied By: [id number] Chloride [Moles/Vol] 105 mmol/L Invalid Interpretation Code 96-108 [facility] Comment on above: Order Comment: Relea se to patient->Automatic Result Comment: Veri fied By: [id number] CO2 [Moles/Vol] 20.2 mmol/L Low 22.0-29.0 [facility] Comment on above: Order Comment: Relea se to patient->Automatic Result Comment: Veri fied By: [id number] Creatinine [Mass/Vol] 0.59 mg/dL Invalid Interpretation Code 0.50-1.00 [facility] Comment on above: Order Comment: Relea se to patient->Automatic Result Comment: Veri fied By: [id number] GFR/1.73 sq M.predicted among non-blacks MDRD (S/P/Bld) [Vol rate/Area] mL/min/{1.73_m2} Invalid Interpretation Code >=60 [facility] Comment on above: Order Comment: Relea se to patient->Automatic Glucose [Mass/Vol] 80 mg/dL Invalid Interpretation Code 70-99 [facility] Comment on above: Order Comment: Relea se to patient->Automatic Result Comment: Crit wily for Diagnosis of Diabetes: Fasting Specimen (no caloric intake for at least 8 hours): <100 mg/dL Normal 100-125 mg/dL Increased risk for Diabetes >125 mg/dL Diagnostic for Diabetes Random Glucose (any time of day without regard to last meal): > or = 200 mg/dL plus Classic Symptoms of Diabetes Verified By: [id number] Potassium [Moles/Vol] 4.1 mmol/L Invalid Interpretation Code 3.3-5.1 [facility] Comment on above: Order Comment: Relea se to patient->Automatic Result Comment: Veri fied By: [id number] Protein [Mass/Vol] 6.5 g/dL Invalid Interpretation Code 5.9-8.4 [facility] Comment on above: Order Comment: Relea se to patient->Automatic Result Comment: Veri fied By: [id number] Sodium [Moles/Vol] 136 mmol/L Invalid Interpretation Code 133-145 [facility] Comment on above: Order Comment: Relea se to patient->Automatic Result Comment: Veri fied By: [id number] Urea nitrogen [Mass/Vol] 7 mg/dL Invalid Interpretation Code 4-19 [facility] Comment on above: Order Comment: Relea se to patient->Automatic Result Comment: Veri fied By: [id number] Complete Blood Count with Di fferentialOrdered By: Marta Hernández on 07-15-2024 Basophils (Bld) [#/Vol] 0.02 10*3/uL [facility] Basophils/100 WBC (Bld) 0.3 % 0.3 - 0.9 % [facility] Eosinophils (Bld) [#/Vol] 0.06 10*3/uL [facility] Eosinophils/100 WBC (Bld) 0.9 % 0.6 - 3.8 % [facility] Erythrocyte distribution width (RBC) [Ratio] 12.5 % 11.9 - 14.8 % [facility] Hematocrit (Bld) [Volume fraction] 38.6 % 35.5 - 44.6 % [facility] Hemoglobin (Bld) [Mass/Vol] 12.5 g/dL 11.4 - 14.8 g/dL [facility] Immature granulocytes/100 WBC (Bld) 0.3 % 0.2 - 0.5 % [facility] Comment on above: Immature Granulocyte Percent includes promyelocytes, myelocytes,and metamyelocytes. IG% > 1.0 indicates a left shift is present. With automated differentials, bands are included in the neutrophil count and not in the Immature Granulocyte Percent. Interpretation and review of laboratory results Abnormal [facility] Lymphocytes (Bld) [#/Vol] 1.32 10*3/uL Low [facility] Lymphocytes/100 WBC (Bld) 19.8 % Low 21.8 - 42.1 % [facility] MCH (RBC) [Entitic mass] 26.7 pg 25.7 - 31.2 pg [facility] MCHC (RBC) [Mass/Vol] 32.4 % 31.3 - 34.0 % [facility] MCV (RBC) [Entitic vol] 82.5 fL 80.7 - 93.7 fL [facility] Monocytes (Bld) [#/Vol] 0.57 10*3/uL [facility] Monocytes/100 WBC (Bld) 8.6 % 5.6 - 10.2 % [facility] Neutrophils (Bld) [#/Vol] 4.67 10*3/uL [facility] Neutrophils/100 WBC (Bld) 70.1 % High 46.0 - 68.6 % [facility] Nucleated RBC/100 WBC (Bld) [Ratio] 0 % 0.0 - 0.0 % [facility] Platelet mean volume (Bld) [Entitic vol] 10.2 fL 9.6 - 11.9 fL [facility] Platelets (Bld) [#/Vol] 242 10*3/uL [facility] RBC (Bld) [#/Vol] 4.68 10*6/uL [facility] WBC (Bld) [#/Vol] 6.7 10*3/uL [facility] Comprehensive metabolic pane andre 07-15-2024 Albumin BCG dye [Mass/Vol] 3.1 g/dL Low 3.5 - 5.0 g/dL [facility] Comment on above: Verified By: [id number] ALP [Catalytic activity/Vol] 152 U/L High 35 - 104 U/L [facility] Comment on above: Verified By: [id number] ALT With P-5'-P [Catalytic activity/Vol] 48 U/L High [facility] - 34 U/L [facility] Comment on above: Verified By: [id number] AST With P-5'-P [Catalytic activity/Vol] 26 U/L [facility] - 31 U/L [facility] Comment on above: Verified By: [id number] Bilirubin [Mass/Vol] 0.5 mg/dL [facility] - 1.0 mg/dL [facility] Comment on above: Verified By: [id number] Calcium [Mass/Vol] 8.6 mg/dL 7.6 - 11. 0 mg/dL [facility] Comment on above: Verified By: [id number] Chloride [Moles/Vol] 105 mmol/L 96 - 10 8 mmol/L [facility] Comment on above: Verified By: [id number] Creatinine [Mass/Vol] 0.59 mg/dL 0.50 - 1.00 mg/dL [facility] Comment on above: Verified By: [id number] eGFR - PINF [facility] Glucose [Mass/Vol] 80 mg/dL 70 - 99 mg/dL [facility] Comment on above: Criteria for Diagnos is of Diabetes: Fasting Specimen (no caloric intake for at least 8 hours): <100 mg/dL Normal 100-125 mg/dL Increased risk for Diabetes >125 mg/dL Diagnostic for Diabetes Random Glucose (any time of day without regard to last meal): > or = 200 mg/dL plus Classic Symptoms of Diabetes Verified By: [id number] HCO3 (P) [Moles/Vol] 20.2 mmol/L Low 22.0 - 29.0 mmol/L [facility] Comment on above: Verified By: [id number] Interpretation and review of laboratory results Abnormal [facility] Potassium (BldA) [Moles/Vol] 4.1 mmol/L 3.3 - 5.1 mmol/L [facility] Comment on above: Verified By: [id number] Protein [Mass/Vol] 6.5 g/dL 5.9 - 8.4 g/dL [facility] Comment on above: Verified By: [id number] Sodium [Moles/Vol] 136 mmol/L 133 - 145 mmol/L [facility] Comment on above: Verified By: [id number] Urea nitrogen [Mass/Vol] 7 mg/dL 4 - 19 mg/dL [facility] Comment on above: Verified By: [id number] HEPATITIS A IGM [facility] 025 Hepatitis A Ab, IgM Non-Reactive Invalid Interpretation Code NonReactive [facility] Comment on above: Order Comment: Relea se to patient->Automatic Result Comment: Refe rence value: Non-reactive Result does not exclude the possibility of exposure to Hepatitis A virus. Antibody level during early infection stage may be below the limit of detection of the assay. HEPATITIS B CORE IGM [facility] Hep B Core Ab, IgM Non-Reactive Invalid Interpretation Code NonReactive [facility] Comment on above: Order Comment: Relea se to patient->Automatic Result Comment: Refe rence value: Non-reactive IgM antibodies to HBc were not detected. Does not exclude the possibility of exposure to HBV. This is an appended report. ???These results have been appended to a previously preliminary verified report. HEPATITIS B SURFACE ANTIBODY on 07-15-2024 Hep Bs Antibody, QN <3.50 Invalid Interpretation Code [facility] Comment on above: Order Comment: Relea se to patient->Automatic Result Comment: Refe rence Value: <8.5 mIU/mL - Negative Individual is considered to be not immune to infection with HBV. Hepatitis Bs Antibody Negative Invalid Interpretation Code Negative [facility] Comment on above: Order Comment: Relea se to patient->Automatic Result Comment: Refe rence value: Unvaccinated: Negative Vaccinated: Positive Individual is considered to be not immune to infection with HBV. Hepatitis A IgM [facility] 025 HAV IgM Ql (S) Non-Reactive NonReactive [facility] Comment on above: Reference value: Non -reactive Result does not exclude the possibility of exposure to Hepatitis A virus. Antibody level during early infection stage may be below the limit of detection of the assay. Hepatitis B Surface Antibody on 07-15-2024 HBV surface Ab Ql (S) Negative Negative [facility] Comment on above: Reference value: Unv accinated: Negative Vaccinated: Positive Individual is considered to be not immune to infection with HBV. Hep Bs Antibody, QN mIU/mL [facility] Comment on above: Reference Value: <8.5 mIU/mL - Negative Individual is considered to be not immune to infection with HBV. [facility] Hepatitis B core IgM Abon HBV core IgM IA Ql Non-Reactive NonReactive [facility] Comment on above: Reference value: Non -reactive IgM antibodies to HBc were not detected. Does not exclude the possibility of exposure to HBV. This is an appended report. These results have been appended to a previously preliminary verified report. [place] MISCELLANEOUS SENDOUTon 07-15-2024 Interface Scan Result SEE COMMENTS Invalid Interpretation Code [facility] Comment on above: Order Comment: [place]' s Test ID and Test Name:->Mitochondrial Antibodies (M2) IgG Serum Billing type:->Institutional Should Pre Authorization be obtained before this is performed?->Yes CPT Code:->K83.1 Test code:->unknown Reason for preventing automatic release->Other Release to patient->Manual release only Result Comment: Test Result Flag Unit RefValue ------- Mitochondrial Ab, M2, S <0.1 U <0.1 (Negative) Test Performed by: [place] [address] [employer]: Elizabeth Zhao Ph.D.; CLIA# [id number] No Panel Informationon 07-15 Interpretation and review of laboratory results Normal [facility] No Panel InformationOrdered By: Background Lab on 07-15-2024 [facility] SMOOTH MUSCLE AB SCREEN WITH REFLEX TO TITER IF POSITIVEon 07-15-2024 Smooth Muscle Ab Screen Negative Invalid Interpretation Code Negative [facility] Comment on above: Order Comment: Relea se to patient->Automatic Result Comment: Nega tive: No further testing will be performed ADDITIONAL INFORMATION This test was developed and its performance characteristics determined by [facility] in a manner consistent with CLIA requirements. This test has not been cleared or approved by the U.S. Food and Drug Administration. Test Performed by: [facility] [address] [place] [address] [employer]: Elizabeth Zhao Ph.D.; CLIA# [id number] TOXOPLASMA IGG AND IGM (PREN ATAL SCREEN)on 07-15-2024 Toxoplasma IgG (Dye Test) <1:16 Invalid Interpretation Code <=1:16 [facility] Comment on above: Order Comment: Jg suarez Performed: Dr[facility] [address] [place] [id number] Release to patient->Automatic Toxoplasma IgM FRANCK 0.00 Invalid Interpretation Code <2.00 [facility] Comment on above: Order Comment: Jg suarez Performed: Dr. [facility] [address] [place] [id number] Release to patient->Automatic Absolute lymphocyte countOrd ered By: Rekha Ayala on 07-11-2024 Lymphocytes Auto (Unsp spec) [#/Vol] 1.38 10*3/uL 0.83-4.51 [facility] Absolute neutrophil countOrd ered By: Rekha Ayala on 07-11-2024 Neutrophils (Bld) [#/Vol] 4.4 10*3/uL 2.0-7.7 [facility] Anion gap in Serum or Plasma Ordered By: Rekha Ayala on 07-11-2024 Anion gap [Moles/Vol] 11 mmol/L 5-15 [facility] Automated lymphocyte count a s percentage of total leukocytesOrdered By: Rekha Ayala on 07-11-2024 Lymphocytes/100 WBC Auto (Unsp spec) 22.1 % 19-41 [facility] BILE ACIDS, TOTALon 07-12-19 25 Bile acid [Moles/Vol] 7.7 umol/L High <7.5 [facility] Comment on above: Order Comment: Speci men Type: BLOOD SPECIMEN Ordering Facility: External Submitter Address: , , Result Comment: Refe rence interval applies to fasting specimens. The total serum bile acid concentration is increased after meals; hence, samples should be collected under fasting conditions, when possible. This does not apply to patients for whom intrahepatic cholestasis of as a diagnostic consideration; these patients will need peak bile acid testing, and samples should be postprandial. This serum bile acid assay should not be used for patients receiving ursodeoxycholic acid, nor should it be used as the primary assay for the screening or diagnosis of genetic disorders of bile acid metabolism. Patient Reference Intervals: 0 Days to 5 Months: Not established 6 Months to 23 Months: <25.8 umol/L 2 Years to 4 Years: <20.9 umol/L 5 Years to 9 Years: <12.4 umol/L 10 Years to 19 Years: <13.6 umol/L 20 Years to 59 Years: <7.5 umol/L >=60 Years: <8.3 umol/L Reference Intervals (Non-fasting): First Trimester (up to 13 weeks gestation): < 15.3 umol/L Reference Interval (Non-fasting): Second Trimester (13 - 27 weeks gestation): < 11.4 umol/L Reference Interval (Non-fasting): Third Trimester (> 27 weeks gestation): < 10.4 umol/L Performed By: #### B ILETO #### [facility] CLIA [id number] [address] [place] [address] [place] BUN/creatinine ratioOrdered By: Rekha Ayala on 07-11-2024 Urea nitrogen/Creatinine [Mass ratio] 11.5 mg/mg - [facility] Basophil percentageOrdered B y: Rekha Ayala on 07-11-2024 Basophils/100 WBC (Bld) 0.5 % 0-1 [facility] Bilirubin, totalOrdered By: Rekha Ayala on 07-11-2024 Bilirubin [Mass/Vol] 0.53 mg/dL 0.00-1.30 [facility] CBC W/Diff, Automatedon 06-30 PLT EST ADEQUATE Normal ADEQ [facility] Comment on above: Order Comment: ADD O N Performed By: #### L 100.0100 ####[facility] [address] [place], [address] Carbon dioxide, total [Moles /volume] in Central venous bloodOrdered By: Rekha Ayala on 07-11-2024 CO2 [Moles/Vol] 21.2 mmol/L 21.0-32.0 [facility] Chloride assayOrdered By: Richard Ayala on 07-11-2024 Chloride [Moles/Vol] 105 mmol/L 98-108 [facility] Comprehensive Metabolic Prof ilon 07-11-2024 Albumin [Mass/Vol] 3.3 g/dL Low 3.5-5.0 [facility] Comment on above: Performed By: #### L 500.4050, L801.1541 ####[facility] [address] [place], [address] Albumin/Globulin [Mass ratio] 1.0 {ratio} Normal 0.9-2.4 [facility] Comment on above: Performed By: #### L 500.4050, L801.1541 ####[facility] [address] [place], [address] ALK PHOS 152 U/L High 35-104 [facility] Comment on above: Performed By: #### L 500.4050, L801.1541 ####[facility] [address] [place], [address] ALT [Catalytic activity/Vol] 52 U/L High <=34 [facility] Comment on above: Performed By: #### L 500.4050, L801.1541 ####[facility] [address] [place], [address] AST [Catalytic activity/Vol] 28 U/L Normal <=31 [facility] Comment on above: Performed By: #### L 500.4050, L801.1541 ####[facility] [address] [place], [address] Bilirubin [Mass/Vol] 0.53 mg/dL Normal 0.00-1.30 [facility] Comment on above: Performed By: #### L 500.4050, L801.1541 ####[facility] [address] [place], [address] BUN/CRE 11.5 RATIO Normal 10-20 [facility] Comment on above: Performed By: #### L 500.4050, L801.1541 ####[facility] [address] [place], [address] Calcium [Mass/Vol] 8.6 mg/dL Normal 7.6-11.0 [facility] Comment on above: Performed By: #### L 500.4050, L801.1541 ####[facility] [address] [place], [address] Chloride [Moles/Vol] 105 mmol/L Normal 98-108 [facility] Comment on above: Performed By: #### L 500.4050, L801.1541 ####[facility] [address] [place], [address] CO2 [Moles/Vol] 21.2 mmol/L Normal 21.0-32.0 [facility] Comment on above: Performed By: #### L 500.4050, L801.1541 ####[facility] [address] [place], [address] Creatinine [Mass/Vol] 0.63 mg/dL Low 0.70-1.20 [facility] Comment on above: Performed By: #### L 500.4050, L801.1541 ####[facility] [address] [place], [address] GAP 11 Normal 5-15 [facility] Comment on above: Performed By: #### L 500.4050, L801.1541 ####[facility] [address] [place], [address] GFR/1.73 sq M.predicted among non-blacks MDRD (S/P/Bld) [Vol rate/Area] 119 mL/min/{1.73_m2} Normal >60 [facility] Comment on above: Result Comment: mL/m in/1.73m2 CKD-EPI Creatinine Equation (2020) Performed By: #### L 500.4050, L801.1541 ####[facility] [address] [place], [address] Globulin (S) [Mass/Vol] 3.2 g/dL Normal 2.2-4.2 [facility] Comment on above: Performed By: #### L 500.4050, L801.1541 ####[facility] [address] [place], [address] Glucose [Mass/Vol] 93 mg/dL Normal 70-99 [facility] Comment on above: Performed By: #### L 500.4050, L801.1541 ####[facility] [address] [place], [address] Potassium [Moles/Vol] 3.7 mmol/L Normal 3.3-5.1 [facility] Comment on above: Performed By: #### L 500.4050, L801.1541 ####[facility] [address] [place], [address] Sodium [Moles/Vol] 137 mmol/L Normal 133-145 [facility] Comment on above: Performed By: #### L 500.4050, L801.1541 ####[facility] [address] [place], [address] T PROT 6.5 g/dL Normal 5.9-8.4 [facility] Comment on above: Performed By: #### L 500.4050, L801.1541 ####[facility] [address] [place], [place], [address] Urea nitrogen [Mass/Vol] 7 mg/dL Normal 4-19 [facility] Comment on above: Performed By: #### L 500.4050, L801.1541 ####[facility] [address] [place], [place], [address] Eosinophil percentageOrdered By: Rekha Ayala on 07-11-2024 Eosinophils/100 WBC (Bld) 0.5 % 0-5 [facility] Erythrocyte distribution wid th ratioOrdered By: Rekha Ayala on 07-11-2024 Erythrocyte distribution width (RBC) [Ratio] 12.5 % 11.6-14.6 [facility] Erythrocyte distribution wid th standard deviationOrdered By: Rekha Ayala on 07-11-2024 Erythrocyte distribution width (RBC) [Ratio] 37.7 fl 35.1-43.9 [facility] Glomerular filtration rate ( GFR) estimation/1.73 sq m using serum, plasma, or whole bOrdered By: Rekha Ayala on 07-11-2024 GFR/1.73 sq M.predicted among non-blacks MDRD (S/P/Bld) [Vol rate/Area] 119 mL/min/{1.73_m2} >60 [facility] Comment on above: mL/min/1.73m2 CKD-EP I Creatinine Equation (2020) Hematocrit Auto (Bld) [Volum e fraction]Ordered By: Rekha Ayala on 07-11-2024 Hematocrit (Bld) [Volume fraction] 34.1 % Low 37-47 [facility] Hemoglobin measurementOrdere d By: Rekha Ayala on 07-11-2024 Hemoglobin (Bld) [Mass/Vol] 11.3 g/dL Low 12.0-15.0 [facility] Immature granulocytes/100 WB C Auto (Bld)Ordered By: Rekha Ayala on 07-11-2024 Immature granulocytes/100 WBC (Bld) 0.300 % 0.0-0.9 [facility] Comment on above: IG% - Immature Granu locytes (promyelocytes, myelocytes and metamyelocytes) > 1% indicates that a LEFT SHIFT is Present. Laboratory - Chemistry and C hemistry - challengeOrdered By: Rekha Ayala on 07-11-2024 AST [Catalytic activity/Vol] 28 U/L <32 [facility] Glucose Ql (U) Negative [facility] Laboratory - UrinalysisOrder ed By: Rekha Ayala on 07-11-2024 Protein Ql (U) Negative [facility] MCV (mean corpuscular volume ) determinationOrdered By: Rekha Ayala on 07-11-2024 MCV (RBC) [Entitic vol] 83.0 fL 81-99 [facility] Mean corpuscular hemoglobin (MCH) determinationOrdered By: Rekha Ayala on 07-11-2024 MCH (RBC) [Entitic mass] 27.5 pg 27.0-32.0 [facility] Mean corpuscular hemoglobin concentration (MCHC) determinationOrdered By: Rekha Ayala on 07-11-2024 MCHC (RBC) [Mass/Vol] 33.1 g/dL 32-36 [facility] Mean platelet volume determi nationOrdered By: Rekha Ayala on 07-11-2024 Platelet mean volume (Bld) [Entitic vol] 10.4 fL 6.2-12.0 [facility] Monocyte percentageOrdered B y: Rekha Ayala on 07-11-2024 Monocytes/100 WBC (Bld) 5.6 % 0-10 [facility] Neutrophil percentageOrdered By: Rekha Ayala on 07-11-2024 Neutrophils/100 WBC (Bld) 71.0 % High 47-70 [facility] Nucleated red blood cell per centageOrdered By: Rekha Ayala on 07-11-2024 Nucleated RBC/100 WBC (Bld) [Ratio] 0 % 0-5 [facility] [employer] Visit Reporton 07-11-2024 [employer] Visit Report [facility] [address], [address] [place] [address] OFFICE VISIT Date of Service: 07/11/24 MR#: [id number] Acct: [id number] Name: ORLY RAY Rep #: [id number] : 1990 Provider: DANIA Bui ams Age/Sex: 34/F [place] [facility] Status: Signed Intake Vital Signs 06/03/24 11:24 07/01/24 13:35 07/11/24 11:22 Height 5 ft 6 in 5 ft 6 in 5 ft 6 in Weight: 231 lb 2 oz BMI 37.3 BP 134/82 H Intake Visit Reasons: 34wk ob Chief Complaint: 34wk OB Sports Medicine [place] Required: No Is patient in pain?: No Allergies No Known Allergies Allergy (Verified 07/11/24 11:18) Medications ???Medication ???Instructions ???Recorded ???Confirmed ???Type multivitamin no.47-iron fum 27 cap PO 11/06/21 07/11/24 History mg-folate no.1 1 mg-dha 300 mg capsule (PNV-DHA) ondansetron 4 mg disintegrating 4 mg PO Q6H PRN nausea and 4 07/11/24 Rx tablet vomiting #90 tabs Last Menstrual Period: 11/20/23 : No PFSH PFSH Medical History Back pain Vaginal delivery Family History Father Colon cancer, Onset Age: 50 Survivor Social History adopted: No household members: spouse and children housing: house number of children: 1 current occupational 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 occupational exposures/hazards: Yes pets and animals: Yes pets and animals: cat(s), dog(s) and farm animals leisure activities: sports history of recent travel: No sexually active: Yes Smoking Status: Never smoker second hand exposure: No alcohol intake: former details: Not while substance use type: does not use well-balanced diet: daily or most days caffeine: Yes Type: coffee Number of servings: 2 and tea Number of servings: 1 eating out: 1-3 times/week during the past year weight has: increased > 10 lbs what type of physical activity do you participate in: walking frequency: 1-2 times per week duration: 15-30 minutes/day grazyna/mosque: [employer] seatbelt use: always do you feel safe at home: Yes additional social history: Spouse Luis- Ops Manager History 2 Elective abortions Hx Para 1 Spontaneous abortions Hx # Term Pregnancies 1 Ectopic pregnancies Hx # Pregnancies Multiple births # of living children 1 Past Pregnancies Del. Date Name GA/Weeks Outcome Route Bth Weight Gen Labor Lgth Anesthesia Del Locatn Provider FOB 06/08/22 Pippa 39 live - full term 8lb 1oz Female [facility] Mike celestin Delivery Date: 06/08/22 Last Updated by: Nivia Castillo IOL HPI 34wk ob Details: ORLY RAY is a 34 year old who presents for routine OB visit. OB Visit [facility] Calculator Estimated Delivery Date Method Current WG Current Estimate 08/26/24 LMP (Certain) 33w 3d Expected Delivery Route/Plan Labor Preferences- CB/BF classes: [] labor support person: [] labor intervention preferences: [] pain management options preferred: [] cut cord/dad catch: [] : [] PP control planned: [] discussed possible routes of delivery and associated risks: [] special requests: [] Specific Issue/Plans Covid status: [] Flu vaccine: [] Tdap vaccine: [] Rhogam: [] LARC form signed: [] Problem list reviewed and updated with the most current plan of care details and appropriate orders placed. Relevant counseling for the gestational age provided. Continue routine care and follow up unless otherwise noted in visit notes/problem list details Initial Weight: 222 lb Date -???-???-???-???-???-?? ?-???-???-???-???-???-? ??- EGA Weight BP Urine Prot -???-???-???-???-???-?? ?-???-???-???-???-???-? ??- Glucose FHR FuHt Pres Dilation -???-???-???-???-???-?? ?-???-???-???-???-???-? ??- Effaced St Visit Note 01/21/24 -???-???-???-???-???-?? ?-???-???-???-???-???-? ??- 8w 6d 222 lb (+0 oz) 114/75 -???-???-???-???-???-?? ?-???-???-???-???-???-? ??- 180 -???-???-???-???-???-?? ?-???-???-???-???-???-? ??- KW- CRL cons with dates. accepts NIPT. flu shot today. 02/17/24 -???-???-???-???-???-?? ?-???-???-???-???-???-? ??- 12w 5d 218 lb 8 oz (-3 lb 8 oz) 126/78 Negative -???-???-???-???-???-?? ?-???-???-???-???-???-? ??- Negative 150 -???-???-???-???-???-?? ?-???-???-???-???-???-? ??- SM- reviewed NIPT results today, normal bedside scan but limited positioning. offered immediate MFM referral for possible [facility], patient requesting repeat NIPT first, will accept NT screen with MFM in meantime though 03/17/24 -???-???-???-???-???-?? ?-???-???-???-???-???-? ??- 16w 6d 223 (more content not included)... Normal [facility] Platelet countOrdered By: Richard Ayala on 07-11-2024 Platelets (Bld) [#/Vol] 293 10*3/uL 150-450 [facility] Platelet estimateOrdered By: Rekha Ayala on 07-11-2024 Platelets LM Ql (Bld) ADEQUATE ADEQ [facility] Potassium measurement (mass/ volume)Ordered By: Rekha Ayala on 07-11-2024 Potassium (Unsp spec) [Mass/Vol] 3.7 mmol/L 3.3-5.1 [facility] RBC Auto (Bld) [#/Vol]Ordere d By: Rekha Ayala on 07-11-2024 RBC (Bld) [#/Vol] 4.11 10*6/uL Low 4.2-5.4 [facility] Serum creatinine measurement (mass/volume)Ordered By: Rekha Ayala on 07-11-2024 Creatinine [Mass/Vol] 0.63 mg/dL Low 0.70-1.20 [facility] Serum globulin measurementOr dered By: Rekha Ayala on 07-11-2024 Globulin (S) [Mass/Vol] 3.2 g/dL 2.2-4.2 [facility] Serum glucose measurement (m ass/volume)Ordered By: Rekha Ayala on 07-11-2024 Glucose [Mass/Vol] 93 mg/dL 70-99 [facility] Serum or plasma alanine shields otransferase (ALT) measurementOrdered By: Rekha Ayala on 07-11-2024 ALT [Catalytic activity/Vol] 52 U/L High <35 [facility] Serum or plasma albumin giovani urement (mass/volume)Ordered By: Rekha Aayla on 07-11-2024 Albumin [Mass/Vol] 3.3 g/dL Low 3.5-5.0 [facility] Serum or plasma albumin/glob ulin mass ratioOrdered By: Rekha Ayala on 07-11-2024 Albumin/Globulin [Mass ratio] 1.0 {ratio} 0.9-2.4 [facility] Serum or plasma alkaline ken sphatase measurementOrdered By: Rekha Ayala on 07-11-2024 ALP [Catalytic activity/Vol] 152 U/L High 35-104 [facility] Serum or plasma calcium giovani urement (mass/volume)Ordered By: Rekha Ayala on 07-11-2024 Calcium [Mass/Vol] 8.6 mg/dL 7.6-11.0 [facility] Serum or plasma urea nitroge n measurement (mass/volume)Ordered By: Rekha Ayala on 07-11-2024 Urea nitrogen [Mass/Vol] 7 mg/dL 4-19 [facility] Sodium levelOrdered By: Dinorah Ayala on 07-11-2024 Sodium [Moles/Vol] 137 mmol/L 133-145 [facility] Total proteinOrdered By: Alen Ayala on 07-11-2024 Protein [Mass/Vol] 6.5 g/dL 5.9-8.4 [facility] White blood cell (WBC) count Ordered By: Rekha Ayala on 07-11-2024 WBC (Bld) [#/Vol] 6.3 10*3/uL 4.4-11.0 [facility] Laboratory - Chemistry and C hemistry - challengeOrdered By: Marla Pickett on 07-01-2024 Glucose Ql (U) Negative [facility] Laboratory - UrinalysisOrder ed By: Marla Pickett on 07-01-2024 Protein Ql (U) Negative [facility] [employer] Visit Reporton 07-01-2024 [employer] Visit Report [facility]'s [address], [address] [place] [id number] OFFICE VISIT Date of Service: 07/01/24 MR#: [id number] Acct: [id number] Name: ORLY RAY Rep #: [id number] : 1990 Provider: DANIA Bui ams Age/Sex: 34/F [place] [facility] Status: Signed Intake Vital Signs 06/03/24 11:24 06/17/24 13:01 07/01/24 13:35 Height 5 ft 6 in 5 ft 6 in 5 ft 6 in Weight: 233 lb BMI 37.5 BP 107/72 Intake Visit Reasons: 32wk ob Chief Complaint: 32 Week OB Sports Medicine [place] Required: No Is patient in pain?: No Allergies No Known Allergies Allergy (Verified 07/01/24 13:36) Medications ???Medication ???Instructions ???Recorded ???Confirmed ???Type multivitamin no.47-iron fum 27 cap PO 11/06/21 07/01/24 History mg-folate no.1 1 mg-dha 300 mg capsule (PNV-DHA) ondansetron 4 mg disintegrating 4 mg PO Q6H PRN nausea and 4 07/01/24 Rx tablet vomiting #90 tabs Last Menstrual Period: 11/20/23 Zika: Zika virus screening: Negative : No PFSH PFSH Medical History Back pain Vaginal delivery Family History Father Colon cancer, Onset Age: 50 Survivor Social History adopted: No household members: spouse and children housing: house number of children: 1 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 occupational 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 occupational exposures/hazards: Yes pets and animals: Yes pets and animals: cat(s), dog(s) and farm animals leisure activities: sports history of recent travel: No sexually active: Yes Smoking Status: Never smoker second hand exposure: No alcohol intake: former details: Not while substance use type: does not use well-balanced diet: daily or most days caffeine: Yes Type: coffee Number of servings: 2 and tea Number of servings: 1 eating out: 1-3 times/week during the past year weight has: increased > 10 lbs what type of physical activity do you participate in: walking frequency: 1-2 times per week duration: 15-30 minutes/day grazyna/mosque: [employer] seatbelt use: always do you feel safe at home: Yes additional social history: Spouse Luis- Ops Manager History 2 Elective abortions Hx Para 1 Spontaneous abortions Hx # Term Pregnancies 1 Ectopic pregnancies Hx # Pregnancies Multiple births # of living children 1 Past Pregnancies Del. Date Name GA/Weeks Outcome Route Bth Weight Gen Labor Lgth Anesthesia Del Locatn Provider FOB 06/08/22 Pippa 39 live - full term 8lb 1oz Female [facility] Mike celestin Delivery Date: 06/08/22 Last Updated by: Nivia Castillo IOL HPI 32wk ob Details: ORLY RAY is a 34 year old who presents for routine OB visit. OB Visit [facility] Calculator Estimated Delivery Date Method Current WG Current Estimate 08/26/24 LMP (Certain) 32w 0d Expected Delivery Route/Plan Labor Preferences- CB/BF classes: [] labor support person: [] labor intervention preferences: [] pain management options preferred: [] cut cord/dad catch: [] : [] PP control planned: [] discussed possible routes of delivery and associated risks: [] special requests: [] Specific Issue/Plans Covid status: [] Flu vaccine: [] Tdap vaccine: [] Rhogam: [] LARC form signed: [] Problem list reviewed and updated with the most current plan of care details and appropriate orders placed. Relevant counseling for the gestational age provided. Continue routine care and follow up unless otherwise noted in visit notes/problem list details Initial Weight: 222 lb Date -???-???-???-???-???-?? ?-???-???-???-???-???-? ??- EGA Weight BP Urine Prot -???-???-???-???-???-?? ?-???-???-???-???-???-? ??- Glucose FHR FuHt Pres Dilation -???-???-???-???-???-?? ?-???-???-???-???-???-? ??- Effaced St Visit Note 01/21/24 -???-???-???-???-???-?? ?-???-???-???-???-???-? ??- 8w 6d 222 lb (+0 oz) 114/75 -???-???-???-???-???-?? ?-???-???-???-???-???-? ??- 180 -???-???-???-???-???-?? ?-???-???-???-???-???-? ??- KW- CRL cons with dates. accepts NIPT. flu shot today. 02/17/24 -???-???-???-???-???-?? ?-???-???-???-???-???-? ??- 12w 5d 218 lb 8 oz (-3 lb 8 oz) 126/78 Negative -???-???-???-???-???-?? ?-???-???-???-???-???-? ??- Negative 150 -???-???-???-???-???-?? ?-???-???-???-???-???-? ??- SM- reviewed NIPT results today, normal bedside scan but limited positioning. offered immediate MFM referral for possible CVS, patient requesting repeat NIPT first, will accept NT screen with MFM in meantime though 03/17/24 -???-???- (more content not included)... Normal [facility] Laboratory - Chemistry and C hemistry - challengeOrdered By: Rekha Ayala on 06-17-2024 Glucose Ql (U) Negative [facility] Laboratory - UrinalysisOrder ed By: Rekha Ayala on 06-17-2024 Protein Ql (U) Negative [facility] [employer] Visit Reporton 06-17-2024 [employer] Visit Report [facility] [address], [address] [place] [address] OFFICE VISIT Date of Service: 06/17/24 MR#: [id number] Acct: [id number] Name: ORLY RAY Rep #: [id number] : 1990 Provider: DANIA Bui ams Age/Sex: 34/F [place] [facility] Status: Signed Intake Vital Signs 04/14/24 13:33 06/03/24 11:24 06/17/24 13:01 Height 5 ft 6 in 5 ft 6 in 5 ft 6 in Weight: 230 lb 4 oz BMI 37.1 BP 126/79 H Intake Visit Reasons: 30 wk ob Chief Complaint: 30wk ob Sports Medicine [place] Required: No Is patient in pain?: No Allergies No Known Allergies Allergy (Verified 06/17/24 13:01) Medications ???Medication ???Instructions ???Recorded ???Confirmed ???Type multivitamin no.47-iron fum 27 cap PO 11/06/21 06/17/24 History mg-folate no.1 1 mg-dha 300 mg capsule (PNV-DHA) ondansetron 4 mg disintegrating 4 mg PO Q6H PRN nausea and 4 06/17/24 Rx tablet vomiting #90 tabs Last Menstrual Period: 11/20/23 : No Have you fallen in the past year?: No PFSH PFSH Medical History Back pain Vaginal delivery Family History Father Colon cancer, Onset Age: 50 Survivor Social History adopted: No household members: spouse and children housing: house number of children: 1 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 occupational 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 occupational 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/hazards: Yes pets and animals: Yes pets and animals: cat(s), dog(s) and farm animals leisure activities: sports history of recent travel: No sexually active: Yes Smoking Status: Never smoker second hand exposure: No alcohol intake: former details: Not while substance use type: does not use well-balanced diet: daily or most days caffeine: Yes Type: coffee Number of servings: 2 and tea Number of servings: 1 eating out: 1-3 times/week during the past year weight has: increased > 10 lbs what type of physical activity do you participate in: walking frequency: 1-2 times per week duration: 15-30 minutes/day grazyna/mosque: [employer] seatbelt use: always do you feel safe at home: Yes additional social history: Spouse Luis- Ops Manager History 2 Elective abortions Hx Para 1 Spontaneous abortions Hx # Term Pregnancies 1 Ectopic pregnancies Hx # Pregnancies Multiple births # of living children 1 Past Pregnancies Del. Date Name GA/Weeks Outcome Route Bth Weight Infant Gen Labor Lgth Anesthesia Del Locatn Provider FOB 06/08/22 Pippa 39 live - full term 8lb 1oz Female [facility] Mike celestin Delivery Date: 06/08/22 Last Updated by: Nivia Castillo IOL HPI 30 wk ob Details: ORLY RAY is a 34 year old who presents for routine OB visit. OB Visit SOLANGE Calculator Estimated Delivery Date Method Current WG Current Estimate 08/26/24 LMP (Certain) 30w 0d Expected Delivery Route/Plan Labor Preferences- CB/BF classes: [] labor support person: [] labor intervention preferences: [] pain management options preferred: [] cut cord/dad catch: [] : [] PP control planned: [] discussed possible routes of delivery and associated risks: [] special requests: [] Specific Issue/Plans Covid status: [] Flu vaccine: [] Tdap vaccine: [] Rhogam: [] LARC form signed: [] Problem list reviewed and updated with the most current plan of care details and appropriate orders placed. Relevant counseling for the gestational age provided. Continue routine care and follow up unless otherwise noted in visit notes/problem list details Initial Weight: 222 lb Date -???-???-???-???-???-?? ?-???-???-???-???-???-? ??- EGA Weight BP Urine Prot -???-???-???-???-???-?? ?-???-???-???-???-???-? ??- Glucose FHR FuHt Pres Dilation -???-???-???-???-???-?? ?-???-???-???-???-???-? ??- Effaced St Visit Note 01/21/24 -???-???-???-???-???-?? ?-???-???-???-???-???-? ??- 8w 6d 222 lb (+0 oz) 114/75 -???-???-???-???-???-?? ?-???-???-???-???-???-? ??- 180 -???-???-???-???-???-?? ?-???-???-???-???-???-? ??- KW- CRL cons with dates. accepts NIPT. flu shot today. 02/17/24 -???-???-???-???-???-?? ?-???-???-???-???-???-? ??- 12w 5d 218 lb 8 oz (-3 lb 8 oz) 126/78 Negative -???-???-???-???-???-?? ?-???-???-???-???-???-? ??- Negative 150 -???-???-???-???-???-?? ?-???-???-???-???-???-? ??- SM- reviewed NIPT results today, normal bedside scan but limited positioning. offered immediate MFM referral for possible [facility], patient requesting repeat NIPT first, will accept NT screen with MFM in meantime though 03/17/24 -???-???-???-???-??? (more content not included)... Normal [facility] Absolute lymphocyte countOrd ered By: Marla Pickett on 06-03-2024 Lymphocytes Auto (Unsp spec) [#/Vol] 1.23 10*3/uL 0.83-4.51 [facility] Absolute neutrophil countOrd ered By: Marla Pickett on 06-03-2024 Neutrophils (Bld) [#/Vol] 6.9 10*3/uL 2.0-7.7 [facility] Automated lymphocyte count a s percentage of total leukocytesOrdered By: Marla Pickett on 06-03-2024 Lymphocytes/100 WBC Auto (Unsp spec) 14.0 % Low 19-41 [facility] Basophil percentageOrdered B y: Marla Nieves on 06-03-2024 Basophils/100 WBC (Bld) 0.3 % 0-1 [facility] CBC W/Diff, Automatedon - Absolute Lymph 1.23 X10 3/uL Normal 0.83-4.51 [facility] Comment on above: Performed By: #### L 501.0250, L100.0100, L3890.6006, L509.8002 ####[facility] [address] [place], [address] Absolute Neut 6.9 X10 3/uL Normal 2.0-7.7 [facility] Comment on above: Performed By: #### L 501.0250, L100.0100, L3890.6006, L509.8002 ####[facility] [address] [place], [address] Basophils/100 WBC (Bld) 0.3 % Normal 0-1 [facility] Comment on above: Performed By: #### L 501.0250, L100.0100, L3890.6006, L509.8002 ####[facility] [address] [place], [address] Eosinophils/100 WBC (Bld) 0.8 % Normal 0-5 [facility] Comment on above: Performed By: #### L 501.0250, L100.0100, L3890.6006, L509.8002 ####[facility] [address] [place], [address] Erythrocyte distribution width (RBC) [Ratio] 12.6 % Normal 11.6-14.6 [facility] Comment on above: Performed By: #### L 501.0250, L100.0100, L3890.6006, L509.8002 ####[facility] [address] [place], [address] Hematocrit (Bld) [Volume fraction] 35.3 % Low 37-47 [facility] Comment on above: Performed By: #### L 501.0250, L100.0100, L3890.6006, L509.8002 ####[facility] [address] [place], [address] Hemoglobin (Bld) [Mass/Vol] 11.4 g/dL Low 12.0-15.0 [facility] Comment on above: Performed By: #### L 501.0250, L100.0100, L3890.6006, L509.8002 ####[facility] [address] [place], [address] IG% 0.700 Normal 0.0-0.9 [facility] Comment on above: Result Comment: IG% - Immature Granulocytes (promyelocytes, myelocytes and metamyelocytes) > 1% indicates that a LEFT SHIFT is Present. Performed By: #### L 501.0250, L100.0100, L3890.6006, L509.8002 ####[facility] [address] [place], [address] Lymphocytes/100 WBC (Bld) 14.0 % Low 19-41 [facility] Comment on above: Performed By: #### L 501.0250, L100.0100, L3890.6006, L509.8002 ####[facility] [address] [place], [address] MCH (RBC) [Entitic mass] 27.8 pg Normal 27.0-32.0 [facility] Comment on above: Performed By: #### L 501.0250, L100.0100, L3890.6006, L509.8002 ####[facility] [address] [place], [address] MCHC (RBC) [Mass/Vol] 32.3 g/dL Normal 32-36 [facility] Comment on above: Performed By: #### L 501.0250, L100.0100, L3890.6006, L509.8002 ####[facility] [address] [place], [address] MCV (RBC) [Entitic vol] 86.1 fL Normal 81-99 [facility] Comment on above: Performed By: #### L 501.0250, L100.0100, L3890.6006, L509.8002 ####[facility] [address] [place], [address] Monocytes/100 WBC (Bld) 5.3 % Normal 0-10 [facility] Comment on above: Performed By: #### L 501.0250, L100.0100, L3890.6006, L509.8002 ####[facility] [address] [place], [address] Neutrophils/100 WBC (Bld) 78.9 % High 47-70 [facility] Comment on above: Performed By: #### L 501.0250, L100.0100, L3890.6006, L509.8002 ####[facility] [address] [place], [address] Nucleated RBC (Bld) [#/Vol] 0 10*3/uL Normal 0-5 [facility] Comment on above: Performed By: #### L 501.0250, L100.0100, L3890.6006, L509.8002 ####[facility] [address] [place], [address] Platelet mean volume (Bld) [Entitic vol] 10.0 fL Normal 6.2-12.0 [facility] Comment on above: Performed By: #### L 501.0250, L100.0100, L3890.6006, L509.8002 ####[facility] [address] [place], [address] Platelets (Bld) [#/Vol] 295 10*3/uL Normal 150-450 [facility] Comment on above: Performed By: #### L 501.0250, L100.0100, L3890.6006, L509.8002 ####[facility] [address] [place], [address] RBC (Bld) [#/Vol] 4.10 10*6/uL Low 4.2-5.4 [facility] Comment on above: Performed By: #### L 501.0250, L100.0100, L3890.6006, L509.8002 ####[facility] [address] [place], [address] RDW SD 39.4 fl Normal 35.1-43.9 [facility] Comment on above: Performed By: #### L 501.0250, L100.0100, L3890.6006, L509.8002 ####[facility] [address] [place], [address] WBC (Bld) [#/Vol] 8.8 10*3/uL Normal 4.4-11.0 [facility] Comment on above: Performed By: #### L 501.0250, L100.0100, L3890.6006, L509.8002 ####[facility] [address] [place], [address] Eosinophil percentageOrdered By: Marla Pickett on 06-03-2024 Eosinophils/100 WBC (Bld) 0.8 % 0-5 [facility] Erythrocyte distribution wid th (RBC) [Ratio]Ordered By: Marla Pickett on 06-03-2024 Erythrocyte distribution width (RBC) [Entitic vol] 39.4 fL 35.1-43.9 [facility] Erythrocyte distribution wid th ratioOrdered By: Marla Pickett on 06-03-2024 Erythrocyte distribution width (RBC) [Ratio] 12.6 % 11.6-14.6 [facility] Erythrocyte distribution wid th standard deviationOrdered By: Marla Pickett on 06-03-2024 Erythrocyte distribution width (RBC) [Ratio] 39.4 fl 35.1-43.9 [facility] Glucose Challenge Gest 1H 50 braulio 06-03-2024 GLU GEST 50g 1H 94 mg/dL Normal 70-140 [facility] Comment on above: Performed By: #### L 501.0250, L100.0100, L3890.6006, L509.8002 ####[facility] [address] [place], [place], [address] Glucose measurement at 2 mesfin rs post-dose gestational glucose tolerance testOrdered By: Marla Pickett on 06-03-2024 Glucose [Mass/Vol] 94 mg/dL 70-140 [facility] HIVon 06-03-2024 HIV Non-Reactive Normal Nonreactive [facility] Comment on above: Result Comment: Non- Reactive Reactive Repeatedly reactive samples must be confirmed according to CDC recommended confirmatory algorithms. The subresults for either HIVAG or AHIV can be used as an aid in the selection of the confirmation algorithm for reactive samples. Send out specimens with Reactive results to [facility] for confirmation. Order the HIV antibody detection and differentiation: lc#[id number] Performed By: #### L 501.0250, L100.0100, L3890.6006, L509.8002 ####[facility] [address] [place], [place], [address] Hematocrit Auto (Bld) [Volum e fraction]Ordered By: Marla Pickett on 06-03-2024 Hematocrit (Bld) [Volume fraction] 35.3 % Low 37-47 [facility] Hemoglobin measurementOrdere d By: Marla Pickett on 06-03-2024 Hemoglobin (Bld) [Mass/Vol] 11.4 g/dL Low 12.0-15.0 [facility] Immature granulocytes/100 WB C Auto (Bld)Ordered By: Marla Pickett on 06-03-2024 Immature granulocytes/100 WBC (Bld) 0.700 % 0.0-0.9 [facility] Comment on above: IG% - Immature Granu locytes (promyelocytes, myelocytes and metamyelocytes) > 1% indicates that a LEFT SHIFT is Present. Laboratory - Chemistry and C hemistry - challengeOrdered By: Marla Pickett on 06-03-2024 Glucose Ql (U) Negative [facility] Laboratory - UrinalysisOrder ed By: Marla Pickett on 06-03-2024 Protein Ql (U) Negative [facility] Lymphocytes Auto (Unsp spec) [#/Vol]Ordered By: Marla Pickett on 06-03-2024 Lymphocytes (Bld) [#/Vol] 1.23 10*3/uL 0.83-4.51 [facility] Lymphocytes/100 WBC Auto (Un sp spec)Ordered By: Marla Pickett on 06-03-2024 Lymphocytes/100 WBC (Bld) 14.0 % Low 19-41 [facility] MCV (mean corpuscular volume ) determinationOrdered By: Marla Pickett on 06-03-2024 MCV (RBC) [Entitic vol] 86.1 fL 81-99 [facility] Mean corpuscular hemoglobin (MCH) determinationOrdered By: Marla Pickett on 06-03-2024 MCH (RBC) [Entitic mass] 27.8 pg 27.0-32.0 [facility] Mean corpuscular hemoglobin concentration (MCHC) determinationOrdered By: Marla Pickett on 06-03-2024 MCHC (RBC) [Mass/Vol] 32.3 g/dL 32-36 [facility] Mean platelet volume determi nationOrdered By: Marla Pickett on 06-03-2024 Platelet mean volume (Bld) [Entitic vol] 10.0 fL 6.2-12.0 [facility] Monocyte percentageOrdered B y: Marla Pickett on 06-03-2024 Monocytes/100 WBC (Bld) 5.3 % 0-10 [facility] Neutrophil percentageOrdered By: Marla Pickett on 06-03-2024 Neutrophils/100 WBC (Bld) 78.9 % High 47-70 [facility] No Panel InformationOrdered By: Marla Pickett on 06-03-2024 HIV (1&2) Antibody Non-Reactive Nonreactive [facility] Comment on above: Non-ReactiveReactive Repeatedly reactive samples must be confirmed according to CDC recommended confirmatory algorithms. The subresults for either HIVAG or AHIV can be used as an aid in the selection of the confirmation algorithm for reactive samples.Send out specimens with Reactive results to [facility] for confirmation.Order the HIV antibody detection and differentiation: #[id number] Nucleated red blood cell per centageOrdered By: Marla Pickett on 06-03-2024 Nucleated RBC/100 WBC (Bld) [Ratio] 0 % 0-5 [facility] [employer] Visit Reporton 06-03-2024 [employer] Visit Report [facility] [address], [address] [place] [address] OFFICE VISIT Date of Service: 06/03/24 MR#: [id number] Acct: [id number] Name: ORLY RAY Rep #: [id number] : 1990 Provider: Dr. Marla Espinoza DO Age/Sex: 34/F [place] [facility] Status: Signed Intake Vital Signs 04/14/24 13:33 05/12/24 13:05 06/03/24 11:24 Height 5 ft 6 in 5 ft 6 in 5 ft 6 in Weight: 228 lb 8 oz BMI 36.8 BP 117/75 Intake Visit Reasons: 28wk ob/ glucose Chief Complaint: 28 Week OB/Glucose Sports Medicine [place] Required: No Is patient in pain?: No Allergies No Known Allergies Allergy (Verified 06/03/24 11:25) Medications ???Medication ???Instructions ???Recorded ???Confirmed ???Type multivitamin no.47-iron fum 27 cap PO 11/06/21 06/03/24 History mg-folate no.1 1 mg-dha 300 mg capsule (PNV-DHA) ondansetron 4 mg disintegrating 4 mg PO Q6H PRN nausea and 4 06/03/24 Rx tablet vomiting #90 tabs Last Menstrual Period: 11/20/23 Zika: Zika virus screening: Negative : No PFSH PFSH Medical History Back pain Vaginal delivery Family History Father Colon cancer, Onset Age: 50 Survivor Social History adopted: No household members: spouse and children housing: house number of children: 1 current occupational 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 occupational exposures/hazards: Yes pets and animals: Yes pets and animals: cat(s), dog(s) and farm animals leisure activities: sports history of recent travel: No sexually active: Yes Smoking Status: Never smoker second hand exposure: No alcohol intake: former details: Not while substance use type: does not use well-balanced diet: daily or most days caffeine: Yes Type: coffee Number of servings: 2 and tea Number of servings: 1 eating out: 1-3 times/week during the past year weight has: increased > 10 lbs what type of physical activity do you participate in: walking frequency: 1-2 times per week duration: 15-30 minutes/day grazyna/mosque: [employer] seatbelt use: always do you feel safe at home: Yes additional social history: Spouse Luis- Ops Manager History 2 Elective abortions Hx Para 1 Spontaneous abortions Hx # Term Pregnancies 1 Ectopic pregnancies Hx # Pregnancies Multiple births # of living children 1 Past Pregnancies Del. Date Name GA/Weeks Outcome Route Bth Weight Infant Gen Labor Lgth Anesthesia Del Locatn Provider FOB 06/08/22 Pippa 39 live - full term 8lb 1oz Female [facility] Mike celestin Delivery Date: 06/08/22 Last Updated by: Nivia Castillo IOL HPI 28wk ob/ glucose Details: ORLY RAY is a 34 year old who presents for routine OB visit. OB Visit [facility] Calculator Estimated Delivery Date Method Current WG Current Estimate 08/26/24 LMP (Certain) 28w 0d Expected Delivery Route/Plan Labor Preferences- CB/BF classes: [] labor support person: [] labor intervention preferences: [] pain management options preferred: [] cut cord/dad catch: [] : [] PP control planned: [] discussed possible routes of delivery and associated risks: [] special requests: [] Specific Issue/Plans Covid status: [] Flu vaccine: [] Tdap vaccine: [] Rhogam: [] LARC form signed: [] Problem list reviewed and updated with the most current plan of care details and appropriate orders placed. Relevant counseling for the gestational age provided. Continue routine care and follow up unless otherwise noted in visit notes/problem list details Initial Weight: 222 lb Date -???-???-???-???-???-?? ?-???-???-???-???-???-? ??- EGA Weight BP Urine Prot -???-???-???-???-???-?? ?-???-???-???-???-???-? ??- Glucose FHR FuHt Pres Dilation -???-???-???-???-???-?? ?-???-???-???-???-???-? ??- Effaced St Visit Note 01/21/24 -???-???-???-???-???-?? ?-???-???-???-???-???-? ??- 8w 6d 222 lb (+0 oz) 114/75 -???-???-???-???-???-?? ?-???-???-???-???-???-? ??- 180 -???-???-???-???-???-?? ?-???-???-???-???-???-? ??- KW- CRL cons with dates. accepts NIPT. flu shot today. 02/17/24 -???-???-???-???-???-?? ?-???-???-???-???-???-? ??- 12w 5d 218 lb 8 oz (-3 lb 8 oz) 126/78 Negative -???-???-???-???-???-?? ?-???-???-???-???-???-? ??- Negative 150 -???-???-???-???-???-?? ?-???-???-???-???-???-? ??- SM- reviewed NIPT results today, normal bedside scan but limited positioning. offered immediate MFM referral for possible CV[facility], patient requesting repeat NIPT first, will accept NT screen with MFM in (more content not included)... Normal [facility] Platelet countOrdered By: Ko Pickett on 06-03-2024 Platelets (Bld) [#/Vol] 295 10*3/uL 150-450 [facility] RBC Auto (Bld) [#/Vol]Ordere d By: Marla Pickett on 06-03-2024 RBC (Bld) [#/Vol] 4.10 10*6/uL Low 4.2-5.4 [facility] Syphilis Antibodieson 2024 Syphilis Abs Non-Reactive Normal Nonreactive [facility] Comment on above: Performed By: #### L 501.0250, L100.0100, L3890.6006, L509.8002 ####[facility] [address] [place], [place], [address] T. pallidum abOrdered By: Ko Pickett on 06-03-2024 Syphilis Total Antibody Non-Reactive Nonreactive [facility] White blood cell (WBC) count Ordered By: Marla Pickett on 06-03-2024 WBC (Bld) [#/Vol] 8.8 10*3/uL 4.4-11.0 [facility] Laboratory - Chemistry and C hemistry - challengeOrdered By: Marla Pickett on 05-12-2024 Glucose Ql (U) Negative [facility] Laboratory - UrinalysisOrder ed By: Marla Pickett on 05-12-2024 Protein Ql (U) Negative [facility] [employer] Visit Reporton 05-12-2024 [employer] Visit Report [facility] [address], [address] [place] [address] OFFICE VISIT Date of Service: 05/12/24 MR#: [id number] Acct: [id number] Name: ORLY RAY Rep #: [id number] : 1990 Provider: Dr. Marla Espinoza DO Age/Sex: 34/F [place] [facility] Status: Signed Intake Vital Signs 03/17/24 13:45 04/14/24 13:33 05/12/24 13:05 05/12/24 13:05 Height 5 ft 6 in 5 ft 6 in 5 ft 6 in 5 ft 6 in Weight: 226 lb 2 oz BMI 36.5 BP 101/62 Intake Visit Reasons: 25 wk ob Sports Medicine [place] Required: No Is patient in pain?: No Allergies No Known Allergies Allergy (Verified 05/12/24 13:04) Medications ???Medication ???Instructions ???Recorded ???Confirmed ???Type multivitamin no.47-iron fum 27 cap PO 11/06/21 05/12/24 History mg-folate no.1 1 mg-dha 300 mg capsule (PNV-DHA) ondansetron 4 mg disintegrating 4 mg PO Q6H PRN nausea and 4 05/12/24 Rx tablet vomiting #90 tabs Last Menstrual Period: 11/20/23 Zika: Zika virus screening: Negative : No PFSH PFSH Medical History Back pain Vaginal delivery Family History Father Colon cancer, Onset Age: 50 Survivor Social History adopted: No household members: spouse and children housing: house number of children: 1 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 occupational 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 occupational exposures/hazards: Yes pets and animals: Yes pets and animals: cat(s), dog(s) and farm animals leisure activities: sports history of recent travel: No sexually active: Yes Smoking Status: Never smoker second hand exposure: No alcohol intake: former details: Not while substance use type: does not use well-balanced diet: daily or most days caffeine: Yes Type: coffee Number of servings: 2 and tea Number of servings: 1 eating out: 1-3 times/week during the past year weight has: increased > 10 lbs what type of physical activity do you participate in: walking frequency: 1-2 times per week duration: 15-30 minutes/day grazyna/mosque: [employer] seatbelt use: always do you feel safe at home: Yes additional social history: Spouse Luis- Ops Manager History 2 Elective abortions Hx Para 1 Spontaneous abortions Hx # Term Pregnancies 1 Ectopic pregnancies Hx # Pregnancies Multiple births # of living children 1 Past Pregnancies Del. Date Name GA/Weeks Outcome Route Bth Weight Gen Labor Lgth Anesthesia Del Ramuatn Provider FOB 06/08/22 Pippa 39 live - full term 8lb 1oz Female [facility] Mike celestin Delivery Date: 06/08/22 Last Updated by: Nivia Castillo IOL HPI 25 wk ob Details: ORLY RAY is a 34 year old who presents for routine OB visit. OB Visit [facility] Calculator Estimated Delivery Date Method Current WG Current Estimate 08/26/24 LMP (Certain) 24w 6d Expected Delivery Route/Plan Labor Preferences- CB/BF classes: [] labor support person: [] labor intervention preferences: [] pain management options preferred: [] cut cord/dad catch: [] : [] PP control planned: [] discussed possible routes of delivery and associated risks: [] special requests: [] Specific Issue/Plans Covid status: [] Flu vaccine: [] Tdap vaccine: [] Rhogam: [] LARC form signed: [] Problem list reviewed and updated with the most current plan of care details and appropriate orders placed. Relevant counseling for the gestational age provided. Continue routine care and follow up unless otherwise noted in visit notes/problem list details Initial Weight: 222 lb Date -???-???-???-???-???-?? ?-???-???-???-???-???-? ??- EGA Weight BP Urine Prot -???-???-???-???-???-?? ?-???-???-???-???-???-? ??- Glucose FHR FuHt Pres Dilation -???-???-???-???-???-?? ?-???-???-???-???-???-? ??- Effaced St Visit Note 01/21/24 -???-???-???-???-???-?? ?-???-???-???-???-???-? ??- 8w 6d 222 lb (+0 oz) 114/75 -???-???-???-???-???-?? ?-???-???-???-???-???-? ??- 180 -???-???-???-???-???-?? ?-???-???-???-???-???-? ??- KW- CRL cons with dates. accepts NIPT. flu shot today. 02/17/24 -???-???-???-???-???-?? ?-???-???-???-???-???-? ??- 12w 5d 218 lb 8 oz (-3 lb 8 oz) 126/78 Negative -???-???-???-???-???-?? ?-???-???-???-???-???-? ??- Negative 150 -???-???-???-???-???-?? ?-???-???-???-???-???-? ??- SM- reviewed NIPT results today, normal bedside scan but limited positioning. offered immediate MFM referral for possible CVS, patient requesting repeat NIPT first, will accept NT screen with MFM in meantime though 03/17/24 (more content not included)... Normal [facility] - Chemistry and C hemistry - challengeOrdered By: Marla Pickett on 04-14-2024 Glucose Ql (U) Negative [facility] - UrinalysisOrder ed By: Marla Pickett on 04-14-2024 Protein Ql (U) Negative [facility] [employer] [facility] Visit Reporton 04-14-2024 [employer] [facility] Visit Report [facility] [address], [address] [place] [address] OFFICE VISIT Date of Service: 04/14/24 MR#: [id number] Acct: [id number] Name: ORLY RAY Rep #: [id number] : 1990 Provider: Dr. Marla Espinoza DO Age/Sex: 34/F [place] [facility] [place] Status: Signed Intake Vital Signs 01/21/24 08:56 03/17/24 13:45 04/14/24 13:32 04/14/24 13:33 Height 5 ft 6 in 5 ft 6 in 5 ft 6 in 5 ft 6 in Weight: 224 lb 2 oz BMI 36.1 BP 114/71 Intake Visit Reasons: 21 wk ob Sports Medicine [place] Required: No Is patient in pain?: No Allergies No Known Allergies Allergy (Verified 04/14/24 13:31) Medications ???Medication ???Instructions ???Recorded ???Confirmed ???Type multivitamin no.47-iron fum 27 cap PO 11/06/21 04/14/24 History mg-folate no.1 1 mg-dha 300 mg capsule (PNV-DHA) ondansetron 4 mg disintegrating 4 mg PO Q6H PRN nausea and 4 04/14/24 Rx tablet vomiting #90 tabs Last Menstrual Period: 11/20/23 Zika: Zika virus screening: Negative : No PFSH PFSH Medical History Back pain Vaginal delivery Family History Father Colon cancer, Onset Age: 50 Survivor Social History adopted: No household members: spouse and children housing: house number of children: 1 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 occupational 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 occupational 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/hazards: Yes pets and animals: Yes pets and animals: cat(s), dog(s) and farm animals leisure activities: sports history of recent travel: No sexually active: Yes Smoking Status: Never smoker second hand exposure: No alcohol intake: former details: Not while substance use type: does not use well-balanced diet: daily or most days caffeine: Yes Type: coffee Number of servings: 2 and tea Number of servings: 1 eating out: 1-3 times/week during the past year weight has: increased > 10 lbs what type of physical activity do you participate in: walking frequency: 1-2 times per week duration: 15-30 minutes/day grazyna/mosque: [employer] seatbelt use: always do you feel safe at home: Yes additional social history: Spouse Luis- Ops Manager History 2 Elective abortions Hx Para 1 Spontaneous abortions Hx # Term Pregnancies 1 Ectopic pregnancies Hx # Pregnancies Multiple births # of living children 1 Past Pregnancies Del. Date Name GA/Weeks Outcome Route Bth Weight Infant Gen Labor Lgth Anesthesia Del Locatn Provider FOB 06/08/22 Pippa 39 live - full term 8lb 1oz Female [facility] Mike celestin Delivery Date: 06/08/22 Last Updated by: Nivia Castillo IOL HPI 21 wk ob Details: ORLY RAY is a 34 year old who presents for routine OB visit. OB Visit SOLANGE Calculator Estimated Delivery Date Method Current WG Current Estimate 08/26/24 LMP (Certain) 20w 6d Expected Delivery Route/Plan Labor Preferences- CB/BF classes: [] labor support person: [] labor intervention preferences: [] pain management options preferred: [] cut cord/dad catch: [] : [] PP control planned: [] discussed possible routes of delivery and associated risks: [] special requests: [] Specific Issue/Plans Covid status: [] Flu vaccine: [] Tdap vaccine: [] Rhogam: [] LARC form signed: [] Problem list reviewed and updated with the most current plan of care details and appropriate orders placed. Relevant counseling for the gestational age provided. Continue routine care and follow up unless otherwise noted in visit notes/problem list details Initial Weight: 222 lb Date -???-???-???-???-???-?? ?-???-???-???-???-???-? ??- EGA Weight BP Urine Prot -???-???-???-???-???-?? ?-???-???-???-???-???-? ??- Glucose FHR FuHt Pres Dilation -???-???-???-???-???-?? ?-???-???-???-???-???-? ??- Effaced St Visit Note 01/21/24 -???-???-???-???-???-?? ?-???-???-???-???-???-? ??- 8w 6d 222 lb (+0 oz) 114/75 -???-???-???-???-???-?? ?-???-???-???-???-???-? ??- 180 -???-???-???-???-???-?? ?-???-???-???-???-???-? ??- KW- CRL cons with dates. accepts NIPT. flu shot today. 02/17/24 -???-???-???-???-???-?? ?-???-???-???-???-???-? ??- 12w 5d 218 lb 8 oz (-3 lb 8 oz) 126/78 Negative -???-???-???-???-???-?? ?-???-???-???-???-???-? ??- Negative 150 -???-???-???-???-???-?? ?-???-???-???-???-???-? ??- - reviewed NIPT results today, normal bedside scan but limited positioning. offered immediate MFM referral for possible CV[facility], patient requesting repeat NIPT first, will accept NT screen with MFM in meantime though 03/17/24 (more content not included)... Normal [facility] Genital Culture Comprehensiv lauryn 03-20-2024 VAC Reason for Exam: vaginal irritation No Gardnerella, Neisseria or beta-hemolytic Streptococcus isolated. Presumptive C albicans Amount Growth 2+ Normal [facility] Comment on above: Performed By: #### M 100.1999, M100.3200 ####[facility] [id number] [place], [address] Genital cultureOrdered By: Shalonda Parekh on 03-17-2024 Genital Culture Presumptive C albicans Abnormal [facility] Gram Stainon 03-17-2024 GS Reason for Exam: vaginal irritation Gram Stain 4+ Gram positive rods 4+ Gram negative rods No Gram negative diplococci 2+ Epithelial cells 2+ White Blood Cells Score = 4 Interpretation: 0-3 Normal, 4-6 Intermediate, 7-10 Positive BV Normal [facility] Comment on above: Performed By: #### M 100.1999, M100.3200 ####[facility] [id number] [place], [place], [id number] Gram stainOrdered By: Katie Parekh on 03-17-2024 Microscopic observation Gram stain Nom (Unsp spec) [facility] - Chemistry and C hemistry - challengeon 03-17-2024 Glucose Ql (U) Negative [facility] - Urinalysison Protein Ql (U) Negative [facility] [employer] [employer] [facility] Visit Reporton 03-17-2024 [employer] Visit Report [facility] [address], [address] [place] [address] OFFICE VISIT Date of Service: 03/17/24 MR#: [id number] Acct: [id number] Name: ORLY RAY Rep #: [id number] : 1990 Provider: Dr. Katie duarte MD Age/Sex: 33/F [place] [facility] Status: Signed Intake Vital Signs 01/21/24 08:56 02/17/24 13:43 03/17/24 13:45 Height 5 ft 6 in 5 ft 6 in 5 ft 6 in Weight: 223 lb 2 oz BMI 36.0 BP 114/73 Intake Visit Reasons: 17 wk ob Sports Medicine [place] Required: No Is patient in pain?: No Feel stressed/tense/nervous/ anxious/difficulty sleeping: not at all Allergies No Known Allergies Allergy (Verified 03/17/24 13:46) Medications ???Medication ???Instructions ???Recorded ???Confirmed ???Type multivitamin no.47-iron fum 27 cap PO 11/06/21 03/17/24 History mg-folate no.1 1 mg-dha 300 mg capsule (PNV-DHA) ondansetron 4 mg disintegrating 4 mg PO Q6H PRN nausea and 01/21/24 03/17/24 Rx tablet vomiting #90 tabs Last Menstrual Period: 11/20/23 Zika: Zika virus screening: Negative : No Have you fallen in the past year?: No PFSH PFSH Medical History Back pain Vaginal delivery Family History Father Colon cancer, Onset Age: 50 Survivor Social History adopted: No household members: spouse and children housing: house number of children: 1 current occupational 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 occupational exposures/hazards: Yes pets and animals: Yes pets and animals: cat(s), dog(s) and farm animals leisure activities: sports history of recent travel: No sexually active: Yes Smoking Status: Never smoker second hand exposure: No alcohol intake: former details: Not while substance use type: does not use well-balanced diet: daily or most days caffeine: Yes Type: coffee Number of servings: 2 and tea Number of servings: 1 eating out: 1-3 times/week during the past year weight has: increased > 10 lbs what type of physical activity do you participate in: walking frequency: 1-2 times per week duration: 15-30 minutes/day grazyna/mosque: [employer] seatbelt use: always do you feel safe at home: Yes additional social history: Spouse Luis- Ops Manager History 2 Elective abortions Hx Para 1 Spontaneous abortions Hx # Term Pregnancies 1 Ectopic pregnancies Hx # Pregnancies Multiple births # of living children 1 Past Pregnancies Del. Date Name GA/Weeks Outcome Route Bth Weight Infant Gen Labor Lgth Anesthesia Del Locatn Provider FOB 06/08/22 Pippa 39 live - full term 8lb 1oz Female [facility] Mike celestin Delivery Date: 06/08/22 Last Updated by: Nivia Castillo IOL HPI 17 wk ob Details: ORLY RAY is a 33 year old who presents for routine OB visit. OB Visit SOLANGE Calculator Estimated Delivery Date Method Current WG Current Estimate 08/26/24 LMP (Certain) 16w 6d Expected Delivery Route/Plan Labor Preferences- CB/BF classes: [] labor support person: [] labor intervention preferences: [] pain management options preferred: [] cut cord/dad catch: [] : [] PP control planned: [] discussed possible routes of delivery and associated risks: [] special requests: [] Specific Issue/Plans Covid status: [] Flu vaccine: [] Tdap vaccine: [] Rhogam: [] LARC form signed: [] Problem list reviewed and updated with the most current plan of care details and appropriate orders placed. Relevant counseling for the gestational age provided. Continue routine care and follow up unless otherwise noted in visit notes/problem list details Initial Weight: 222 lb Date -???-???-???-???-???-?? ?-???-???-???-???-???-? ??- EGA Weight BP Urine Prot -???-???-???-???-???-?? ?-???-???-???-???-???-? ??- Glucose FHR FuHt Pres Dilation -???-???-???-???-???-?? ?-???-???-???-???-???-? ??- Effaced St Visit Note 01/21/24 -???-???-???-???-???-?? ?-???-???-???-???-???-? ??- 8w 6d 222 lb (+0 oz) 114/75 -???-???-???-???-???-?? ?-???-???-???-???-???-? ??- 180 -???-???-???-???-???-?? ?-???-???-???-???-???-? ??- KW- CRL cons with dates. accepts NIPT. flu shot today. 02/17/24 -???-???-???-???-???-?? ?-???-???-???-???-???-? ??- 12w 5d 218 lb 8 oz (-3 lb 8 oz) 126/78 Negative -???-???-???-???-???-?? ?-???-???-???-???-???-? ??- Negative 150 -???-???-???-???-???-?? ?-???-???-???-???-???-? ??- SM- reviewed NIPT results today, normal bedside scan but limited positioning. offered immediate MFM referral for possible CVS, patient requesting repeat NIPT fi (more content not included)... Normal [facility] - Chemistry and C hemistry - challengeon 02-17-2024 Glucose Ql (U) Negative [facility] - Urinalysison Protein Ql (U) Negative [facility] Miscellaneous procedureOrder ed By: Katie Parekh on 02-17-2024 Miscellaneous Test Comment SEE SCANNED REPORT [facility] NATERAon 02-17-2024 NATURA SEE SCANNED REPORT Normal [facility] Comment on above: Performed By: #### L 900.0098 ####[facility] [id number] [place], [place], [id number] [employer] Visit Reporton 02-17-2024 [employer] [facility] Visit Report [facility] [address], [address] [place] [address] OFFICE VISIT Date of Service: 02/17/24 MR#: [id number] Acct: [id number] Name: ORLY RAY Rep #: [id number] : 1990 Provider: Dr. Katie duarte MD Age/Sex: 33/F [place] [facility] Status: Signed Intake Vital Signs 07/28/23 10:27 01/21/24 08:56 02/17/24 13:43 Height 5 ft 6 in 5 ft 6 in 5 ft 6 in Weight: 218 lb 8 oz BMI 35.2 BP 126/78 H Blood Pressure Location Lt brachial Position Sitting Intake Visit Reasons: 13 wk OB Chief Complaint: 13 wk ob Allergies No Known Allergies Allergy (Verified 02/17/24 13:51) Medications ???Medication ???Instructions ???Recorded ???Confirmed ???Type multivitamin no.47-iron fum 27 cap PO 11/06/21 02/17/24 History mg-folate no.1 1 mg-dha 300 mg capsule (PNV-DHA) ondansetron 4 mg disintegrating 4 mg PO Q6H PRN nausea and 01/21/24 02/17/24 Rx tablet vomiting #90 tabs Last Menstrual Period: 11/20/23 : No Nurse's Note: 13 wk ob PFSH PFSH Medical History Back pain Vaginal delivery Family History Father Colon cancer, Onset Age: 50 Survivor Social History adopted: No household members: spouse and children housing: house number of children: 1 current occupational 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 occupational exposures/hazards: Yes pets and animals: Yes pets and animals: cat(s), dog(s) and farm animals leisure activities: sports history of recent travel: No sexually active: Yes Smoking Status: Never smoker second hand exposure: No alcohol intake: former details: Not while substance use type: does not use well-balanced diet: daily or most days caffeine: Yes Type: coffee Number of servings: 2 and tea Number of servings: 1 eating out: 1-3 times/week during the past year weight has: increased > 10 lbs what type of physical activity do you participate in: walking frequency: 1-2 times per week duration: 15-30 minutes/day grazyna/mosque: [employer] seatbelt use: always do you feel safe at home: Yes additional social history: Spouse Luis- Ops Manager History 2 Elective abortions Hx Para 1 Spontaneous abortions Hx # Term Pregnancies 1 Ectopic pregnancies Hx # Pregnancies Multiple births # of living children 1 Past Pregnancies Del. Date Name GA/Weeks Outcome Route Bth Weight Gen Labor Lgth Anesthesia Del Locatn Provider FOB 06/08/22 Pippa 39 live - full term 8lb 1oz Female [facility] Mike celestin Delivery Date: 06/08/22 Last Updated by: Nivia Castillo IOL HPI 13 wk OB Details: ORLY RAY is a 33 year old who presents for routine OB visit. OB Visit SOLANGE Calculator Estimated Delivery Date Method Current WG Current Estimate 08/26/24 LMP (Certain) 13w 0d Expected Delivery Route/Plan Labor Preferences- CB/BF classes: [] labor support person: [] labor intervention preferences: [] pain management options preferred: [] cut cord/dad catch: [] : [] PP control planned: [] discussed possible routes of delivery and associated risks: [] special requests: [] Specific Issue/Plans Covid status: [] Flu vaccine: [] Tdap vaccine: [] Rhogam: [] LARC form signed: [] Problem list reviewed and updated with the most current plan of care details and appropriate orders placed. Relevant counseling for the gestational age provided. Continue routine care and follow up unless otherwise noted in visit notes/problem list details Initial Weight: 222 lb Date -???-???-???-???-???-?? ?-???-???-???-???-???-? ??- EGA Weight BP Urine Prot -???-???-???-???-???-?? ?-???-???-???-???-???-? ??- Glucose FHR FuHt Pres Dilation -???-???-???-???-???-?? ?-???-???-???-???-???-? ??- Effaced St Visit Note 01/21/24 -???-???-???-???-???-?? ?-???-???-???-???-???-? ??- 8w 6d 222 lb (+0 oz) 114/75 -???-???-???-???-???-?? ?-???-???-???-???-???-? ??- 180 -???-???-???-???-???-?? ?-???-???-???-???-???-? ??- KW- CRL cons with dates. accepts NIPT. flu shot today. 02/17/24 -???-???-???-???-???-?? ?-???-???-???-???-???-? ??- 12w 5d 218 lb 8 oz (-3 lb 8 oz) 126/78 Negative -???-???-???-???-???-?? ?-???-???-???-???-???-? ??- Negative 150 -???-???-???-???-???-?? ?-???-???-???-???-???-? ??- - reviewed NIPT results today, normal bedside scan but limited positioning. offered immediate MFM referral for possible CVS, patient requesting repeat NIPT first, will accept NT screen with MFM in meantime though ACOG First Trimester (more content not included)... Normal [facility] CBC W/Diff, Automatedon 12-0 -2023 Absolute Lymph 1.61 X10 3/uL Normal 0.83-4.51 [facility] Comment on above: Performed By: #### L 509.8000, L100.0100, L3890.6100, L501.9985, BTS, L3890.6005, L3890.6300, L509.4005, L900.0098 #### [facility] [address] [place], [address] Absolute Neut 5.4 X10 3/uL Normal 2.0-7.7 [facility] Comment on above: Performed By: #### L 509.8000, L100.0100, L3890.6100, L501.9985, BTS, L3890.6005, L3890.6300, L509.4005, L900.0098 #### [facility] [address] [place], [address] Basophils/100 WBC (Bld) 0.5 % Normal 0-1 [facility] Comment on above: Performed By: #### L 509.8000, L100.0100, L3890.6100, L501.9985, BTS, L3890.6005, L3890.6300, L509.4005, L900.0098 #### [facility] [address] [place], [address] Eosinophils/100 WBC (Bld) 1.2 % Normal 0-5 [facility] Comment on above: Performed By: #### L 509.8000, L100.0100, L3890.6100, L501.9985, BTS, L3890.6005, L3890.6300, L509.4005, L900.0098 #### [facility] [address] [place], [address] Erythrocyte distribution width (RBC) [Ratio] 13.1 % Normal 11.6-14.6 [facility] Comment on above: Performed By: #### L 509.8000, L100.0100, L3890.6100, L501.9985, BTS, L3890.6005, L3890.6300, L509.4005, L900.0098 #### [facility] [address] [place], [address] Hematocrit (Bld) [Volume fraction] 36.9 % Low 37-47 [facility] Comment on above: Performed By: #### L 509.8000, L100.0100, L3890.6100, L501.9985, BTS, L3890.6005, L3890.6300, L509.4005, L900.0098 #### [facility] [address] [place], [address] Hemoglobin (Bld) [Mass/Vol] 12.0 g/dL Normal 12.0-15.0 [facility] Comment on above: Performed By: #### L 509.8000, L100.0100, L3890.6100, L501.9985, BTS, L3890.6005, L3890.6300, L509.4005, L900.0098 #### [facility] [address] [place], [address] IG% 0.300 Normal 0.0-0.9 [facility] Comment on above: Result Comment: IG% - Immature Granulocytes (promyelocytes, myelocytes and metamyelocytes) > 1% indicates that a LEFT SHIFT is Present. Performed By: #### L 509.8000, L100.0100, L3890.6100, L501.9985, BTS, L3890.6005, L3890.6300, L509.4005, L900.0098 #### [facility] [address] [place], [address] Lymphocytes/100 WBC (Bld) 21.1 % Normal 19-41 [facility] Comment on above: Performed By: #### L 509.8000, L100.0100, L3890.6100, L501.9985, BTS, L3890.6005, L3890.6300, L509.4005, L900.0098 #### [facility] [address] [facility] [place], [address] MCH (RBC) [Entitic mass] 27.8 pg Normal 27.0-32.0 [facility] Comment on above: Performed By: #### L 509.8000, L100.0100, L3890.6100, L501.9985, BTS, L3890.6005, L3890.6300, L509.4005, L900.0098 #### [facility] [address] [place], [address] MCHC (RBC) [Mass/Vol] 32.5 g/dL Normal 32-36 [facility] Comment on above: Performed By: #### L 509.8000, L100.0100, L3890.6100, L501.9985, BTS, L3890.6005, L3890.6300, L509.4005, L900.0098 #### [facility] [address] [place], [address] MCV (RBC) [Entitic vol] 85.4 fL Normal 81-99 [facility] Comment on above: Performed By: #### L 509.8000, L100.0100, L3890.6100, L501.9985, BTS, L3890.6005, L3890.6300, L509.4005, L900.0098 #### [facility] [address] [place], [address] Monocytes/100 WBC (Bld) 5.9 % Normal 0-10 [facility] Comment on above: Performed By: #### L 509.8000, L100.0100, L3890.6100, L501.9985, BTS, L3890.6005, L3890.6300, L509.4005, L900.0098 #### [facility] [address] [place], [address] Neutrophils/100 WBC (Bld) 71.0 % High 47-70 [facility] Comment on above: Performed By: #### L 509.8000, L100.0100, L3890.6100, L501.9985, BTS, L3890.6005, L3890.6300, L509.4005, L900.0098 #### [facility] [address] [place], [address] Nucleated RBC (Bld) [#/Vol] 0 10*3/uL Normal 0-5 [facility] Comment on above: Performed By: #### L 509.8000, L100.0100, L3890.6100, L501.9985, BTS, L3890.6005, L3890.6300, L509.4005, L900.0098 #### [facility] [address] [place], [address] Platelet mean volume (Bld) [Entitic vol] 9.7 fL Normal 6.2-12.0 [facility] Comment on above: Performed By: #### L 509.8000, L100.0100, L3890.6100, L501.9985, BTS, L3890.6005, L3890.6300, L509.4005, L900.0098 #### [facility] [address] [place], [address] Platelets (Bld) [#/Vol] 332 10*3/uL Normal 150-450 [facility] Comment on above: Performed By: #### L 509.8000, L100.0100, L3890.6100, L501.9985, BTS, L3890.6005, L3890.6300, L509.4005, L900.0098 #### [facility] [address] [place], [address] RBC (Bld) [#/Vol] 4.32 10*6/uL Normal 4.2-5.4 [facility] Comment on above: Performed By: #### L 509.8000, L100.0100, L3890.6100, L501.9985, BTS, L3890.6005, L3890.6300, L509.4005, L900.0098 #### [facility] [address] [place], [place], [id number] RDW SD 40.8 fl Normal 35.1-43.9 [facility] Comment on above: Performed By: #### L 509.8000, L100.0100, L3890.6100, L501.9985, BTS, L3890.6005, L3890.6300, L509.4005, L900.0098 #### [facility] [address] [facility] [place], [address] WBC (Bld) [#/Vol] 7.6 10*3/uL Normal 4.4-11.0 [facility] Comment on above: Performed By: #### L 509.8000, L100.0100, L3890.6100, L501.9985, BTS, L3890.6005, L3890.6300, L509.4005, L900.0098 #### [facility] [address] [facility] [place], [address] HIV - WCHon 02-05-2024 HIV Non-Reactive Normal Nonreactive [facility] Comment on above: Order Comment: Reaso n for Exam: Performed By: #### L 509.8000, L100.0100, L3890.6100, L501.9985, BTS, L3890.6005, L3890.6300, L509.4005, L900.0098 ####[facility] [id number] [facility] [place], [address] Hemoglobin A1con 02-05-2024 HbA1c (Bld) [Mass fraction] 5.4 % Normal 3.8-5.6 [facility] Comment on above: Result Comment: Norm al < 5.7 % Prediabetic 5.7 - 6.4 % Diabetic >or= 6.5 % Please note range changes. Performed By: #### L 509.8000, L100.0100, L3890.6100, L501.9985, BTS, L3890.6005, L3890.6300, L509.4005, L900.0098 #### [facility] [address] [place], [place], [id number] Hepatitis B Surface Antigeno n 02-05-2024 HEP B Surf Ag Non-Reactive Normal Nonreactive [facility] Comment on above: Order Comment: Reaso n for Exam: Performed By: #### L 509.8000, L100.0100, L3890.6100, L501.9985, BTS, L3890.6005, L3890.6300, L509.4005, L900.0098 ####[facility] [address] [facility] [place], [place], [id number] Hepatitis C Antibodyon 02-04 Hepatitis C AB Non-Reactive Normal Nonreactive [facility] Comment on above: Order Comment: Reaso n for Exam: Result Comment: Non Reactive: < 0.8 Equivocal: >/= 0.8 to < 1.0 Reactive: >/= 1.0 The CDC requires that a reactive/equivocal HCV antibody result be sent out for confirmation. HCV Quant by PCR testing. Performed By: #### L 509.8000, L100.0100, L3890.6100, L501.9985, BTS, L3890.6005, L3890.6300, L509.4005, L900.0098 ####[facility] [address] [place], [place], [id number]) L509.8000on 02-05-2024 Syphilis Abs Non-Reactive Normal [facility] [place] Comment on above: Order Comment: Reaso n for Exam: Performed By: #### L 509.8000, L100.0100, L3890.6100, L501.9985, BTS, L3890.6005, L3890.6300, L509.4005, L900.0098 #### [facility] [address] [place], [address] NATERAon 02-05-2024 NATURA SEE SCANNED REPORT Normal [facility] Comment on above: Order Comment: Comme nts: NIPT with Gender Performed By: #### L 509.8000, L100.0100, L3890.6100, L501.9985, BTS, L3890.6005, L3890.6300, L509.4005, L900.0098 #### [facility] [address] [place], [address] Rubella IgGon 02-05-2024 Rubella IgG Reactive Normal Nonreactive [facility] Comment on above: Order Comment: Reaso n for Exam: Result Comment: Anti body Results Interpretation of Immune Status Non Reactive Presumed Non-Immune Equivocal Equivocal Reactive Presumed Immune Performed By: #### L 509.8000, L100.0100, L3890.6100, L501.9985, BTS, L3890.6005, L3890.6300, L509.4005, L900.0098 #### [facility] [address] [place], [address] Type AND Screenon 02-05-2024 Ab SCREEN GEL Negative Normal [facility] Comment on above: Order Comment: PN Performed By: #### L 509.8000, L100.0100, L3890.6100, L501.9985, BTS, L3890.6005, L3890.6300, L509.4005, L900.0098 #### [facility] [address] [place], [address] Chlamydia/GC NEHEMIAH aptimaon CHLAMY,NUC ACID Negative Normal Negative [facility] Comment on above: Performed By: #### L 7000.1800, M100.2200 ####[facility] [address] [place], [address] GC BY NUC ACID Negative Normal Negative [facility] Comment on above: Result Comment: Perf ormed at: =G - [facility] [address] [place] [id number] [employer] Executive [employer]: Nunu Melissa MD, Phone: [phone] Performed By: #### L 7000.1800, M124.2202 ####[facility] [address] [place], [place], [id number] Urine Cultureon 01-22-2024 URC Culture exhibits no growth. Normal [facility] Comment on above: Performed By: #### L 7000.1800, M100.220 ####[facility] [address] [place], [place], [id number] [employer] Office Visit Reporton 01-21-2024 [employer] Office Visit Report [address], [address] [place] [address] OFFICE VISIT Date of Service: 01/21/24 MR#: [id number] Acct: [id number] Name: ORLY RAY Rep #: [id number] : 1990 Provider: DANIA Bui ams Age/Sex: 33/F Location[facility] Status: Signed with Addenda ADDENDUM by Ashli Ralph on 01/21/24 at 1617 Office Procedure Documentation entered by Ashli Ralph 01/21/24 16:17: Immunizations Adacel(Tdap Adolesn/Adult)(PF) 2 Lf-(2.5-5-3-5)-5 Lf/0.5 mL IM syringe Performing Provider: Rekha Ayala CNM Performing Location: [facility] Administered by: Ashli Ralph on 01/21/24 16:14 Dose Route Admin Location Dispensed Lot Number Expiration Date [facility] Man ufacturer 0.5 mL IM Right Deltoid 0.5 mL [id number] 09/30/25 90890-108-48 [employer] VIS Given Date VIS Provided VIS Publication Date 01/21/24 Single Vaccine 20 Eligibility Eligibility Date Funding Source Not Applicable Administration Comments: Event Comments: Vaccine was given to patient by mistake. Patient was requesting influenza vaccine. Patient was notified of Tdap injection. Patient was notified that she will not need additional Tdap injection at 28wks per Rekha Ayala instruction. Date cc: * Signed Intake Vital Signs 07/28/23 10:27 01/21/24 08:53 01/21/24 08:56 Height 5 ft 6 in 5 ft 6 in 5 ft 6 in Weight: 222 lb BMI 35.8 BP 114/75 Intake Visit Reasons: NOB LMP 11/19 Sports Medicine Masseur Required: No Is patient in pain?: No Allergies No Known Allergies Allergy (Verified 01/21/24 08:55) Medications ???Medication ???Instructions ???Recorded ???Confirmed ???Type multivitamin no.47-iron fum 27 cap PO 11/06/21 01/12/24 History mg-folate no.1 1 mg-dha 300 mg capsule (PNV-DHA) ondansetron 4 mg disintegrating 4 mg PO Q6H PRN nausea and 01/21/24 01/21/24 Rx tablet vomiting #90 tabs Last Menstrual Period: 11/20/23 Zika: Zika virus screening: Negative : No Have you fallen in the past year?: No PFSH PFSH Medical History (Updated 01/21/24 @ 08:55 by Ashli Ralph) Back pain Vaginal delivery Family History Father Colon cancer, Onset Age: 50 Survivor Social History adopted: No household members: spouse and children housing: house number of children: 1 current occupational 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 occupational exposures/hazards: Yes pets and animals: Yes pets and animals: cat(s), dog(s) and farm animals leisure activities: sports history of recent travel: No sexually active: Yes Smoking Status: Never smoker second hand exposure: No alcohol intake: former details: Not while substance use type: does not use well-balanced diet: daily or most days caffeine: Yes Type: coffee Number of servings: 2 and tea Number of servings: 1 eating out: 1-3 times/week during the past year weight has: increased > 10 lbs what type of physical activity do you participate in: walking frequency: 1-2 times per week duration: 15-30 minutes/day grazyna/mosque: [employer] seatbelt use: always do you feel safe at home: Yes additional social history: Spouse Luis- Ops Manager History 2 Elective abortions Hx Para 1 Spontaneous abortions Hx # Term Pregnancies 1 Ectopic pregnancies Hx # Pregnancies Multiple births # of living children 1 Past Pregnancies Del. Date Name GA/Weeks Outcome Route Bth Weight Infant Gen Labor Lgth Anesthesia Del Locatn Provider FOB 06/08/22 Pippa 39 live - full term 8lb 1oz Female [facility] Mike celestin Delivery Date: 06/08/22 Last Updated by: Nivia Castillo IOL HPI NOB LMP 11/19 Details: ORLY RAY is a 33 year old who presents for New OB visit. OB Visit SOLANGE Calculator Estimated Delivery Date Method Current WG Current Estimate 08/26/24 LMP (Certain) 8w 6d Comments: HIV: Urine Culture: Sequential Screen: NIPT Screen: Estimated Due Date: 08/26/24 Expected Delivery Route/Plan Labor Preferences- CB/BF classes: [] labor support person: [] labor intervention preferences: [] pain management options preferred: [] cut cord/dad catch: [] : [] PP control planned: [] discussed possible routes of delivery and associated risks: [] special requests: [] Specific Issue/Plans Covid status: [] Flu vaccine: [] Tdap vaccine: [] Rhogam: [] LARC form signed: [] Problem list reviewed and updated with the most current plan of care details and appropriate orders placed. Relevant counseling for th (more content not included)... Normal [facility] Complement C3on 12-25-2022 Complement C3 [Mass/Vol] 157 mg/dL Normal 87-200 [facility] Comment on above: Performed By: #### 1 988-5 #### BURNS LOUISE ([id number]) [facility] ([facility] [address] [place] [address] Complement C4on 12-25-2022 Complement C4 [Mass/Vol] 42 mg/dL Normal 10-50 [facility] Comment on above: Performed By: #### 1 988-5 #### KATY GIL ([id number]) [facility] ([facility] [address] [place] [address] 65391 Proteinon 12-25-2022 Protein Qn (U) <4 Low 5-24 [facility] Comment on above: Performed By: #### 1 988-5 #### KATY GIL ([id number]) [facility] ([facility] [address] [place] [address] 83744 Protein Qn (U)on 12-25-2022 Creatinine (U) [Mass/Vol] 58.7 mg/dL Normal 20.0-320.0 [facility] Comment on above: Performed By: #### 1 988-5 #### KATY GIL ([id number]) [facility] ([facility] [address] [place] [address] 53263 Protein/Creatinine (U) [Mass ratio] Normal [facility] Comment on above: Result Comment: One or more analytes used in this calculation is outside of the analytical measurement range. Calculation cannot be performed. Performed By: #### 1 988-5 #### KATY GIL ([id number]) [facility] ([facility] [address] [place] [address] 79705 Urinalysis complete panel (U )on 12-25-2022 Appearance (U) Clear Normal Clear [facility] Comment on above: Performed By: #### 1 988-5 #### KATY GIL ([id number]) [facility] ([facility] [address] [place] [address] 35733 Bilirubin (U) [Mass/Vol] Negative Normal NEGATIVE [facility] Comment on above: Performed By: #### 1 988-5 #### KATY GIL ([id number]) [facility] ([facility] [address] [place] [address] 21893 Color (U) Yellow Normal Straw, Yellow [facility] Comment on above: Performed By: #### 1 988-5 #### KATY GIL ([id number]) [facility] ([facility]) [address] [place] [address] Glucose Auto test strip (U) [Mass/Vol] Negative Normal NEGATIVE [facility] Comment on above: Performed By: #### 1 988-5 #### KATY GIL ([id number]) [facility] ([facility]) [address] [place] [address] 33039 Ketones (U) [Mass/Vol] Negative Normal [facility]IVE [facility] above: Performed By: #### 1 988-5 #### KATY GIL ([id number]) [facility] ([facility]) [address] [place] [address] 44593 Leukocyte esterase Auto test strip Ql (U) Negative Normal NEGATIVE [facility] Comment on above: Performed By: #### 1 988-5 #### KATY GIL ([id number]) [facility] ([facility]) [address] [place] [address] 84681 Nitrite Auto test strip Ql (U) Negative Normal NEGATIVE [facility] Comment on above: Performed By: #### 1 988-5 #### KATY GIL ([id number]) [facility] ([facility]) [address] [place] [address] 37539 pH (U) 5.0 [pH] Normal 5.0, 5.5, 6.0, 6.5, 7.0, 7.5, 8.0 [facility] Comment on above: Performed By: #### 1 988-5 #### KATY GIL ([id number]) [facility] ([facility]) [address] [place] [address] 80449 Protein (U) [Mass/Vol] Negative Normal NEGATIVE [facility] Comment on above: Performed By: #### 1 988-5 #### KATY GIL ([id number]) [facility] ([facility]) [address] [place] [address] 55607 RBC (U) [#/Vol] Negative Normal NEGATIVE [facility] Comment on above: Performed By: #### 1 988-5 #### KATY GIL ([id number]) [facility] ([facility]) [address] [place] [address] 64677 Specific gravity (U) [Rel density] 1.011 Normal 1.005-1.035 [facility] Comment on above: Performed By: #### 1 988-5 #### KATY GIL ([id number]) [facility] ([facility]) [address] [place] [address] 31496 Urobilinogen (U) [Mass/Vol] mg/dL Normal <2.0 [facility] Comment on above: Performed By: #### 1 988-5 #### KATY GIL ([id number]) [facility] ([facility]) [address] [place] [address] 95758 B. burgdorferi DNA NEHEMIAH+probe Ql (Unsp spec)on 12-10-2022 Specimen source Nom (Unsp spec) Blood Normal [facility] Comment on above: Performed By: #### 1 988-5 #### KATY GIL ([id number]) [facility] ([facility]) [address] [place] [address] 10992 Borrelia burgdorferi DNAon 1 B. burgdorferi DNA NEHEMIAH+probe Ql (Unsp spec) Not detected Normal [facility] Comment on above: Result Comment: NOT DETECTED - A negative result does not rule out the presence of PCR inhibitors in the patient specimen or assay specific nucleic acid in concentrations below the level of detection by the assay. Blood and CSF specimens have poor clinical sensitivity for detection of Borrelia burgdorferi by PCR. INTERPRETIVE INFORMATION: Borrelia Species DNA Detection by PCR This test was developed and its performance characteristics determined by [facility]. It has not been cleared or approved by the [place] Food and Drug Administration. This test was performed in a CLIA certified laboratory and is intended for clinical purposes. Performed By: [facility] [address] [place] [address] Ship Washer: Favio Schultz MD, PhD CLIA Number: [id number] Performed By: #### 1 988-5 #### KATY GIL ([id number]) [facility] ([facility]) [address] [place] [address] 99818 C reactive proteinon 10-11-2 023 CRP [Mass/Vol] 0.42 mg/dL Normal <1.00 [facility] Comment on above: Performed By: #### 1 988-5 #### KATY GIL ([id number]) [facility] ([facility]) [address] [place] [address] CBC panel Auto (Bld)on 12-10 Erythrocyte distribution width (RBC) [Ratio] 14.8 % High 11.5-14.5 [facility] Comment on above: Performed By: #### 5 8410-2 #### KATY GIL ([id number]) [facility] ([facility] [address] [place] [address] Hematocrit (Bld) [Volume fraction] 40.7 % Normal 36.0-46.0 [facility] Comment on above: Performed By: #### 5 8410-2 #### KATY GIL ([id number]) [facility] ([facility]) [address] [place], [place] [address] Hemoglobin (Bld) [Mass/Vol] 12.6 g/dL Normal 12.0-16.0 [facility] Comment on above: Performed By: #### 5 8410-2 #### KATY GIL ([id number]) [facility] ([facility]) [address] [place] [address] 61106 MCH (RBC) [Entitic mass] 26.9 pg Normal 26.0-34.0 [facility] Comment on above: Performed By: #### 5 8410-2 #### KATY GIL ([id number]) [facility] ([facility]) [address] [place] [address] 18518 MCHC (RBC) [Mass/Vol] 31.0 g/dL Low 32.0-36.0 [facility] Comment on above: Performed By: #### 5 8410-2 #### KATY GIL ([id number]) [facility] ([facility]) [address] [place] [address] 20568 MCV (RBC) [Entitic vol] 87 fL Normal 80-100 [facility] Comment on above: Performed By: #### 5 8410-2 #### KATY GIL ([id number]) [facility] ([facility]) [address] [place] [address] 35002 Nucleated RBC/100 WBC (Bld) [Ratio] 0.0 /100 WBCs Normal 0.0-0.0 [facility] Comment on above: Performed By: #### 5 8410-2 #### KATY GIL ([id number]) [facility] ([facility]) [address] [place] [address] 88504 Platelet mean volume (Bld) [Entitic vol] 9.7 fL Normal 7.5-11.5 [facility] Comment on above: Performed By: #### 5 8410-2 #### KATY GIL ([id number]) [facility] ([facility]) [address] [place] [address] 88178 Platelets (Bld) [#/Vol] 366 x10*3/uL Normal 150-450 [facility] Comment on above: Performed By: #### 5 8410-2 #### KATY GIL ([id number]) [facility] ([facility]) [address] [place] [address] 40973 RBC (Bld) [#/Vol] 4.69 x10*6/uL Normal 4.00-5.20 [facility] Comment on above: Performed By: #### 5 8410-2 #### KATY GIL ([id number]) [facility] ([facility]) [address] [place] [address] 76601 WBC (Bld) [#/Vol] 4.8 x10*3/uL Normal 4.4-11.3 [facility] Comment on above: Performed By: #### 5 8410-2 #### KATY GIL ([id number]) [facility] ([facility]) [address] [place] [address] 27389 Cobalaminson 12-10-2022 Cobalamin (Vitamin B12) [Mass/Vol] 580 pg/mL Normal 211-911 [facility] Comment on above: Performed By: #### 2 132-9 #### KATY GIL (48653) [facility] ([facility]) [address] [place] [address] Comprehensive metabolic 2000 panelon 12-10-2022 Albumin BCP dye [Mass/Vol] 4.3 g/dL Normal 3.4-5.0 [facility] Comment on above: Performed By: #### 2 4323-8 #### KATY GIL ([id number]) [facility] ([facility]) [address] [place] [address] ALP [Catalytic activity/Vol] 76 U/L Normal 33-110 [facility] Comment on above: Performed By: #### 2 4323-8 #### KATY GIL (49690) [facility] ([facility]) [address] [place] [address] 73531 ALT With P-5'-P [Catalytic activity/Vol] 11 U/L Normal 7-45 [facility] Comment on above: Result Comment: Karol ents treated with Sulfasalazine may generate falsely decreased results for ALT. Performed By: #### 2 4323-8 #### KATY GIL ([id number]) [facility] ([facility]) [address] [place] [address] Anion gap [Moles/Vol] 12 mmol/L Normal 10-20 [facility] Comment on above: Performed By: #### 2 4323-8 #### KATY GIL ([id number]) [facility] ([facility]) [facility] [place] [address] AST With P-5'-P [Catalytic activity/Vol] 14 U/L Normal 9-39 [facility] Comment on above: Performed By: #### 2 4323-8 #### KATY GIL (04278) [facility] ([facility]) [address] [place] [address] Bilirubin [Mass/Vol] 0.7 mg/dL Normal 0.0-1.2 [facility] Comment on above: Performed By: #### 2 4323-8 #### KATY GIL ([id number]) [facility] ([facility]) [address] [place] [address] 75263 Calcium [Mass/Vol] 9.1 mg/dL Normal 8.6-10.3 [facility] Comment on above: Performed By: #### 2 4323-8 #### KATY GIL ([id number]) [facility] ([facility]) [address] [place] [address] 71948 Chloride [Moles/Vol] 106 mmol/L Normal 98-107 [facility] Comment on above: Performed By: #### 2 4323-8 #### KATY GIL ([id number]) [facility] ([facility]) [address] [place] [address] 11349 CO2 [Moles/Vol] 26 mmol/L Normal 21-32 [facility] Comment on above: Performed By: #### 2 4323-8 #### KATY GIL ([id number]) [facility] ([facility]) [address] [place] [address] 57726 Creatinine [Mass/Vol] 0.94 mg/dL Normal 0.50-1.05 [facility] Comment on above: Performed By: #### 2 4323-8 #### KATY GIL ([id number]) [facility] ([facility]) [address] [place] [address] 37377 GFR/1.73 sq M.predicted MDRD (S/P/Bld) [Vol rate/Area] 83 mL/min/1.73m*2 Normal >60 [facility] Comment on above: Result Comment: Calc ulations of estimated GFR are performed using the 2020 CKD-EPI Study Refit equation without the race variable for the IDMS-Traceable creatinine methods. https://jasn.asnjournals.org/content/early/ASN.81329 41022 Performed By: #### 2 4323-8 #### KATY GIL ([id number]) [facility] ([facility]) [address] [place] [address] 85811 Glucose [Mass/Vol] 81 mg/dL Normal 74-99 [facility] Comment on above: Performed By: #### 2 4323-8 #### KATY GIL ([id number]) [facility] ([facility]) [address] [place] [address] 01947 Potassium [Moles/Vol] 4.3 mmol/L Normal 3.5-5.3 [facility] Comment on above: Performed By: #### 2 4323-8 #### KATY GIL (32293) [facility] ([facility]) [address] [place] [address] 15465 Protein [Mass/Vol] 7.1 g/dL Normal 6.4-8.2 [facility] Comment on above: Performed By: #### 2 4323-8 #### KATY GIL ([id number]) [facility] ([facility]) [address] [place] [address] 38719 Sodium [Moles/Vol] 140 mmol/L Normal 136-145 [facility] Comment on above: Performed By: #### 2 4323-8 #### KATY GIL ([id number]) [facility] ([facility]) [address] [place] [address] 25889 Urea nitrogen [Mass/Vol] 9 mg/dL Normal 6-23 [facility] Comment on above: Performed By: #### 2 4323-8 #### KATY GIL ([id number]) [facility] ([facility]) [address] [place] [address] 94102 Cyclic citrullinated peptide Ab.IgGon 12-10-2022 Cyclic citrullinated peptide IgG Qn <1 Normal <3 [facility] Comment on above: Order Comment: THE T EST FOR ANTIBODIES SPECIFIC FOR CYCLIC CITRULLINATED PEPTIDE (CCP) HAS SHOWN TO BE VALUABLE IN THE DIAGNOSIS OF RHEUMATOID ARTHRITIS. THE DIAGNOSTIC VALUE OF ANTIBODIES TO CCP IN JUVENILE RHEUMATOID ARTHRITIS PATIENTS HAS NOT BEEN DETERMINED. ANTIBODIES TO CENTROMERE OR SS-A AND MYELOMA IGG MAY BE REACTIVE IN THIS ASSAY. Result Comment: NEGA TIVE < 3 U/ML POSITIVE >=3 U/ML Performed By: #### 3 3935-8 #### GE Potts ([id number]) [facility] ([facility] [id number] [place] [address] 18577 ESR Westergren method (Bld) [Velocity]on 12-10-2022 ESR (Bld) [Velocity] 13 mm/h Normal 0-20 [facility] Comment on above: Performed By: #### 4 537-7 #### KATY GIL ([id number]) [facility] ([facility]) [address] [place] [address] Extractable nuclear Ab panel (S)on 12-10-2022 Centromere protein B Ab Qn (S) <0.2 Normal <1.0 [facility] Comment on above: Result Comment: < 1. 0 = NEGATIVE >=1.0 = POSITIVE Performed By: #### 4 3119-7 #### GE Potts ([id number]) [facility] ([facility] [address] [place] [id number] Chromatin Ab Qn 0.8 AI Normal <1.0 [facility] Comment on above: Result Comment: < 1. 0 = NEGATIVE >=1.0 = POSITIVE Performed By: #### 4 3119-7 #### GE Potts ([id number]) [facility] ([facility] [address] [place] [id number] DNA double strand Ab Qn (S) [IU]/mL Normal <5.0 [facility] Comment on above: Result Comment: NEGA TIVE: <= 4 IU/ML EQUIVOCAL: 5- 9 IU/ML POSITIVE: >=10 IU/ML Performed By: #### 4 3119-7 #### GE Potts ([id number]) [facility] ([facility] [address] [place] [address] 37592 Roxann-1 extractable nuclear Ab IA Ql (S) <0.2 Normal <1.0 [facility] Comment on above: Result Comment: < 1. 0 = NEGATIVE >=1.0 = POSITIVE Performed By: #### 4 3119-7 #### GE Potts ([id number]) [facility] ([facility] [address] [place] [address] 77298 Ribonucleoprotein extractable nuclear Ab IA Qn (S) <0.2 Normal <1.0 [facility] Comment on above: Result Comment: < 1. 0 = NEGATIVE >=1.0 = POSITIVE Performed By: #### 4 3119-7 #### GE Potts ([id number]) [facility] ([facility] [address] [place] [address] 30788 Ribosomal P Ab Qn (S) <0.2 Normal <1.0 [facility] Comment on above: Result Comment: < 1. 0 = NEGATIVE >=1.0 = POSITIVE Performed By: #### 4 3119-7 #### GE Potts ([id number]) [facility] ([facility] [address] [place] [address] 11751 SCL-70 extractable nuclear Ab IA Ql (S) <0.2 Normal <1.0 [facility] Comment on above: Result Comment: < 1. 0 = NEGATIVE >=1.0 = POSITIVE Performed By: #### 4 3119-7 #### GE Potts ([id number]) [facility] ([facility] [address] [place] [address] 74429 Sjogrens syndrome-A extractable nuclear Ab IA Qn (S) <0.2 Normal <1.0 [facility] Comment on above: Result Comment: < 1. 0 = NEGATIVE >=1.0 = POSITIVE Performed By: #### 4 3119-7 #### GE Potts ([id number]) [facility] ([facility]) [address] [place] [address] 90613 Sjogrens syndrome-B extractable nuclear Ab IA Qn (S) 0.7 AI Normal <1.0 [facility] Comment on above: Result Comment: < 1. 0 = NEGATIVE >=1.0 = POSITIVE Performed By: #### 4 3119-7 #### GE Potts ([id number]) [facility] ([facility]) [address] [place] [address] 71351 Baldwin extractable nuclear Ab IA Qn (S) <0.2 Normal <1.0 [facility] Comment on above: Result Comment: < 1. 0 = NEGATIVE >=1.0 = POSITIVE Performed By: #### 4 3119-7 #### GE Potts ([id number]) [facility] ([facility]) [address] [place] [address] 23873 Baldwin extractable nuclear Ab+Ribonucleoprotein extractable nuclear Ab IA Ql (S) <0.2 Normal <1.0 [facility] Comment on above: Result Comment: < 1. 0 = NEGATIVE >=1.0 = POSITIVE Performed By: #### 4 3119-7 #### GE Potts ([id number]) [facility] ([facility]) [address] [place] [address] 89268 Nuclear Abon 12-10-2022 Nuclear Ab Hep2 substrate Ql (S) Positive Abnormal Negative [facility] Comment on above: Result Comment: The Antinuclear Antibody (ASAD) test was performed using indirect immunofluorescence assay with HEp-2 cells slide. Performed By: #### 5 9069-5 #### GE Potts ([id number]) [facility] ([facility]) [address] [place] [address] 30300 Nuclear Ab Hep2 substrate Ql (S)on 12-10-2022 ASAD PATTERN Homogeneous Normal [facility] Comment on above: Performed By: #### 5 9069-5 #### GE Potts ([id number]) [facility] ([facility]) [address] [place] [address] 43506 Nuclear Ab IF (S) [Titer] 1:320 Normal [facility] Comment on above: Performed By: #### 5 9069-5 #### GE Potts ([id number]) [facility] ([facility]) [address] [place] [address] 14141 Rheumatoid factoron 12-11-19 23 Rheumatoid factor Nephelometry Qn (S) <10 Normal 0-15 [facility] Comment on above: Performed By: #### 1 5205-8 #### GE Potts ([id number]) [facility] ([facility]) [address] [place] [address] 06916 Thyrotropinon 12-10-2022 TSH Qn 1.72 m[IU]/L Normal 0.44-3.98 [facility] Comment on above: Order Comment: TSH t esting is performed using different testing methodology at [facility] than at other [facility]. Direct result comparisons should only be made within the same method. Performed By: #### 3 016-3 #### BURNS LOUISE ([id number]) [facility] ([facility] [address] [place] [address] Absolute lymphocyte countOrd ered By: Dr. Parekh on 06-08-2022 Lymphocytes Auto (Unsp spec) [#/Vol] 1.46 10*3/uL 0.83-4.51 [facility] Basophil percentageOrdered B y: Dr. Parekh on 06-08-2022 Basophils/100 WBC (Bld) 0.4 % 0-1 [facility] Eosinophils/100 WBC (Bld) 0.4 % 0-5 [facility] Neutrophils (Bld) [#/Vol] 8.4 10*3/uL 2.0-7.7 [facility] Neutrophils/100 WBC (Bld) 79.6 % 47-70 [facility] WBC (Bld) [#/Vol] 10.5 10*3/uL 4.4-11.0 [facility] Blood erythrocytes count (nu mber/volume)Ordered By: Dr. Parekh on 06-08-2022 RBC (Bld) [#/Vol] 4.20 10*6/uL 4.2-5.4 [facility] Blood hemoglobin measurement (mass/volume)Ordered By: Dr. Parekh on 06-08-2022 Hemoglobin (Bld) [Mass/Vol] 10.7 g/dL 12.0-15.0 [facility] Blood lymphocytes/100 leukoc ytesOrdered By: Dr. Parekh on 06-08-2022 Lymphocytes/100 WBC (Bld) 13.9 % 19-41 [facility] Blood monocytes/100 leukocyt esOrdered By: Dr. Parekh on 06-08-2022 Monocytes/100 WBC (Bld) 5.2 % 0-10 [facility] Blood platelet mean volumeOr dered By: Dr. Parekh on 06-08-2022 Platelet mean volume (Bld) [Entitic vol] 10.0 fL 6.2-12.0 [facility] Determination of erythrocyte mean corpuscular volume (MCV)Ordered By: Dr. Parekh on 06-08-2022 MCV (RBC) [Entitic vol] 81.0 fL 81-99 [facility] Hematocrit Auto (Bld) [Volum e fraction]Ordered By: Dr. Parekh on 06-08-2022 Hematocrit (Bld) [Volume fraction] 34.0 % 37-47 [facility] Laboratory - Hematology and Cell countsOrdered By: Dr. Parekh on 06-08-2022 Erythrocyte distribution width (RBC) [Entitic vol] 39.7 fL 35.1-43.9 [facility] Erythrocyte distribution width (RBC) [Ratio] 14.0 % 11.6-14.6 [facility] Immature granulocytes/100 WBC (Bld) 0.500 % 0.0-0.9 [facility] Comment on above: IG% - Immature Granu locytes (promyelocytes, myelocytes and metamyelocytes) > 1% indicates that a LEFT SHIFT is Present. MCH (RBC) [Entitic mass] 25.5 pg 27.0-32.0 [facility] Nucleated RBC/100 WBC (Bld) [Ratio] 0 % 0-5 [facility] MCHC Auto (RBC) [Mass/Vol]Or dered By: Dr. Parekh on 06-08-2022 MCHC (RBC) [Mass/Vol] 31.5 g/dL 32-36 [facility] Platelets bldOrdered By: Dr. Parekh on 06-08-2022 Platelets (Bld) [#/Vol] 336 10*3/uL 150-450 [facility] Serum Treponema species anti body detectionOrdered By: Dr. Parekh on 06-08-2022 Treponema sp Ab Ql (S) Non-Reactive [facility] Laboratory - Chemistry and C hemistry - challengeon 06-05-2022 Glucose Ql (U) Negative [facility] - Urinalysison Protein Ql (U) Negative [facility] Laboratory - Chemistry and C hemistry - challengeon 05-29-2022 Glucose Ql (U) Negative [facility] Laboratory - Urinalysison Protein Ql (U) Negative [facility] No Panel InformationOrdered By: Dr. Parekh on 05-19-2022 Group B Streptococcus Culture Streptococcus agalactiae (B) [facility] Laboratory - Chemistry and C hemistry - challengeon 05-15-2022 Glucose Ql (U) Negative [facility] Laboratory - Urinalysison Protein Ql (U) Negative [facility] Laboratory - Chemistry and C hemistry - challengeon 05-01-2022 Glucose Ql (U) Negative [facility] Laboratory - Urinalysison Protein Ql (U) Negative [facility] Laboratory - Chemistry and C hemistry - challengeon 04-03-2022 Glucose Ql (U) Negative [facility] Laboratory - Urinalysison Protein Ql (U) Negative [facility] Absolute lymphocyte countOrd ered By: Dr. Pickett on 03-10-2022 Lymphocytes Auto (Unsp spec) [#/Vol] 1.28 10*3/uL 0.83-4.51 [facility] Basophil percentageOrdered B y: Dr. Pickett on 03-10-2022 Basophils/100 WBC (Bld) 0.5 % 0-1 [facility] Eosinophils/100 WBC (Bld) 1.0 % 0-5 [facility] Neutrophils (Bld) [#/Vol] 6.8 10*3/uL 2.0-7.7 [facility] Neutrophils/100 WBC (Bld) 78.2 % 47-70 [facility] WBC (Bld) [#/Vol] 8.7 10*3/uL 4.4-11.0 [facility] Blood erythrocytes count (nu mber/volume)Ordered By: Dr. Pickett on 03-10-2022 RBC (Bld) [#/Vol] 3.98 10*6/uL 4.2-5.4 [facility] Blood hemoglobin measurement (mass/volume)Ordered By: Dr. Pickett on 03-10-2022 Hemoglobin (Bld) [Mass/Vol] 11.5 g/dL 12.0-15.0 [facility] Blood lymphocytes/100 leukoc ytesOrdered By: Dr. Pickett on 03-10-2022 Lymphocytes/100 WBC (Bld) 14.7 % 19-41 [facility] Blood monocytes/100 leukocyt esOrdered By: Dr. Pickett on 03-10-2022 Monocytes/100 WBC (Bld) 5.1 % 0-10 [facility] Blood platelet mean volumeOr dered By: Dr. Pickett on 03-10-2022 Platelet mean volume (Bld) [Entitic vol] 9.6 fL 6.2-12.0 [facility] Determination of erythrocyte mean corpuscular volume (MCV)Ordered By: Dr. Pickett on 03-10-2022 MCV (RBC) [Entitic vol] 87.7 fL 81-99 [facility] Gestational diabetes screen 1-hour screen with 50g oral glucose loadOrdered By: Dr. Pickett on 03-10-2022 Glucose 1 Hr post 50 g glucose PO [Mass/Vol] 92 mg/dL 70-140 [facility] HIV 1 and HIV-2 antibody ass ay with HIV-1 p24 antigen detectionOrdered By: Dr. Pickett on 03-10-2022 HIV 1+2 Ab+HIV1 p24 Ag IA Ql Non-Reactive Nonreactive [facility] Hematocrit Auto (Bld) [Volum e fraction]Ordered By: Dr. Pickett on 03-10-2022 Hematocrit (Bld) [Volume fraction] 34.9 % 37-47 [facility] Laboratory - Chemistry and C hemistry - challengeon 03-10-2022 Glucose Ql (U) Negative [facility] Laboratory - Hematology and Cell countsOrdered By: Dr. Pickett on 03-10-2022 Erythrocyte distribution width (RBC) [Entitic vol] 39.8 fL 35.1-43.9 [facility] Erythrocyte distribution width (RBC) [Ratio] 12.4 % 11.6-14.6 [facility] Immature granulocytes/100 WBC (Bld) 0.500 % 0.0-0.9 [facility] Comment on above: IG% - Immature Granu locytes (promyelocytes, myelocytes and metamyelocytes) > 1% indicates that a LEFT SHIFT is Present. MCH (RBC) [Entitic mass] 28.9 pg 27.0-32.0 [facility] Nucleated RBC/100 WBC (Bld) [Ratio] 0 % 0-5 [facility] Laboratory - Urinalysison Protein Ql (U) Negative [facility] MCHC Auto (RBC) [Mass/Vol]Or dered By: Dr. Pickett on 03-10-2022 MCHC (RBC) [Mass/Vol] 33.0 g/dL 32-36 [facility] Platelets bldOrdered By: Dr. Pickett on 03-10-2022 Platelets (Bld) [#/Vol] 327 10*3/uL 150-450 [facility] Serum Treponema species anti body detectionOrdered By: Dr. Pickett on 03-10-2022 Treponema sp Ab Ql (S) Non-Reactive [facility] Laboratory - Chemistry and C hemistry - challengeon 02-06-2022 Glucose Ql (U) Negative [facility] Laboratory - Urinalysison Protein Ql (U) Negative [facility] Absolute lymphocyte counton 11-13-2021 Lymphocytes Auto (Unsp spec) [#/Vol] 1.14 10*3/uL 0.83-4.51 [facility] Work Phone: Basophil percentageon 2021 Basophils/100 WBC (Bld) 0.4 % 0-1 [facility] Work Phone: Eosinophils/100 WBC (Bld) 0.5 % 0-5 [facility] Work Phone: Neutrophils (Bld) [#/Vol] 6.2 10*3/uL 2.0-7.7 [facility] Work Phone: Neutrophils/100 WBC (Bld) 77.0 % 47-70 [facility] Work Phone: WBC (Bld) [#/Vol] 8.0 10*3/uL 4.4-11.0 [facility] Work Phone: Blood erythrocytes count (nu mber/volume)on 11-13-2021 RBC (Bld) [#/Vol] 4.46 10*6/uL 4.2-5.4 [facility] Work Phone: Blood hemoglobin measurement (mass/volume)on 11-13-2021 Hemoglobin (Bld) [Mass/Vol] 12.8 g/dL 12.0-15.0 [facility] Work Phone: Blood lymphocytes/100 leukoc yteson 11-13-2021 Lymphocytes/100 WBC (Bld) 14.3 % 19-41 [facility] Work Phone: Blood monocytes/100 leukocyt eson 11-13-2021 Monocytes/100 WBC (Bld) 7.4 % 0-10 [facility] Work Phone: Blood platelet mean volumeon 11-13-2021 Platelet mean volume (Bld) [Entitic vol] 9.5 fL 6.2-12.0 [facility] Work Phone: Chlamydia trachomatis rRNA d etection by probe and target amplification methodon 11-13-2021 C. trachomatis rRNA NEHEMIAH+probe Ql (Unsp spec) Negative Negative [facility] Work Phone: Determination of erythrocyte mean corpuscular volume (MCV)on 11-13-2021 MCV (RBC) [Entitic vol] 87.2 fL 81-99 [facility] Work Phone: Gestational diabetes screen 1-hour screen with 50g oral glucose loadon 11-13-2021 Glucose 1 Hr post 50 g glucose PO [Mass/Vol] 91 mg/dL 70-140 [facility] Work Phone: HIV 1 and HIV-2 antibody ass ay with HIV-1 p24 antigen detectionon 11-13-2021 HIV 1+2 Ab+HIV1 p24 Ag IA Ql Non-Reactive Nonreactive [facility] Work Phone: Hematocrit Auto (Bld) [Volum e fraction]on 11-13-2021 Hematocrit (Bld) [Volume fraction] 38.9 % 37-47 [facility] Work Phone: Laboratory - Drug toxicology on 11-13-2021 Amphetamines Ql (U) Negative <1000 ng[facility]: Benzodiazepines Ql (U) Negative < 200 ng/mL [facility] Work Phone: Cannabinoids Screen Ql (U) Negative < 50 ng/mL [facility] Work Phone: Cocaine Ql (U) Negative < 300 ng/mL [facility] Work Phone: Opiates Ql (U) Negative < 300 ng/mL [facility] Work Phone: Laboratory - Hematology and Cell countson 11-13-2021 Erythrocyte distribution width (RBC) [Entitic vol] 39.5 fL 35.1-43.9 [facility] Work Phone: Erythrocyte distribution width (RBC) [Ratio] 12.5 % 11.6-14.6 [facility] Work Phone: Immature granulocytes/100 WBC (Bld) 0.400 % 0.0-0.9 [facility] Work Phone: Comment on above: IG% - Immature Granu locytes (promyelocytes, myelocytes and metamyelocytes) > 1% indicates that a LEFT SHIFT is Present. MCH (RBC) [Entitic mass] 28.7 pg 27.0-32.0 [facility] Work Phone: Nucleated RBC/100 WBC (Bld) [Ratio] 0 % 0-5 [facility] Work Phone: Laboratory - Microbiology an d Antimicrobial susceptibilityon 11-13-2021 N. gonorrhoeae DNA NEHEMIAH+probe Ql (Unsp spec) Negative Negative [facility] Work Phone: Comment on above: Performed at: =G - [address] [id number] Director: Nunu Melissa MD, Phone: [phone] MCHC Auto (RBC) [Mass/Vol]on 11-13-2021 MCHC (RBC) [Mass/Vol] 32.9 g/dL 32-36 [facility] Work Phone: No Panel Informationon 11-13 Hepatitis B Surface Antigen Non-Reactive Nonreactive [facility] Work Phone: Hepatitis C Antibody Non-Reactive Nonreactive [facility] Work Phone: Comment on above: Non Reactive: < 0.8 Equivocal: >/= 0.8 to < 1.0 Reactive: >/= 1.0The [facility] recommends that a reactive/equivocal HCV antibody result be followed up by the HCV Nucleic Acid Amplificationtest (012142) Miscellaneous Test Comment MAILED SPECIMEN [facility] Work Phone: Rubella IgG Antibody Reactive Nonreactive [facility] Work Phone: Comment on above: Antibody Results Int erpretation of Immune Status Non Reactive Presumed Non-Immune Equivocal Equivocal Reactive Presumed Immune Toxoplasma Comment Comment . [facility] Work Phone: Comment on above: It is presumed the p atient has not been infected with andis not undergoing an acute infection with Toxoplasma. Ifsymptoms persist, submit a new specimen after three weeks.Performed at: [address] [id number] Director: Bernardo Lindo PhD, Phone: [phone] MDMA (Ecstasy) Screen Negative < 500 ng/mL [facility] Work Phone: Urine Barbiturates Screen Negative < 200 ng/mL [facility] Work Phone: Urine Drug Screen Comment [facility] Work Phone: Comment on above: CONFIRMATORY TESTING FOR ALL POSITIVE URINE DRUG SCREENRESULTS WILL ONLY BE SENT OUT UPON PHYSICIAN ORDER. VISTA Urine Drug Screen methods provide only preliminaryanalytical test results. A more specific alternate chemicalmethod must be used in order to obtain a confirmedanalytical result. Gas chromatography/mass spectrometery(GC/MS) is the preferred confirmatory method. Clinicalconsideration and professional judgement should be appliedto any drug of abuse test result, particularly whenpreliminary positive results are used. URINE TCA TESTING MUST BE ORDERED SEPARATELY. USE TESTMNEMONIC: [facility] Urine Methadone Screen Negative < 300 ng/mL [facility] Work Phone: Platelets bldon 11-13-2021 Platelets (Bld) [#/Vol] 317 10*3/uL 150-450 [facility] Work Phone: Serum Toxoplasma gondii IgG antibody assay (units/volume)on 11-13-2021 T. gondii IgG Qn (S) < 3.0 IU/mL 0.0-7.1 [facility] Work Phone: Comment on above: Negative <7.2 Equivo nicola 7.2 - 8.7 Positive >8.7 Serum Toxoplasma gondii IgM antibody assay by immunoassay (units/volume)on 11-13-2021 T. gondii IgM IA Qn (S) < 3.0 AU/mL 0.0-7.9 [facility] Work Phone: Comment on above: Negative <8.0 Equivo nicola 8.0 - 9.9 Positive >9.9 Serum Treponema species anti body detectionon 11-13-2021 Treponema sp Ab Ql (S) Non-Reactive [facility] Work Phone: Urine phencyclidine (PCP) de tectionon 11-13-2021 Phencyclidine Ql (U) Negative < 25 ng/mL [facility] Work Phone: CBC AND DIFFERENTIALon 03-25 Basophils (Bld) [#/Vol] 0.00 10*3/uL Normal 0.00 - 0.10 [facility] Comment on above: Performed By: #### C BCDF #### [address] [address] Basophils/100 WBC (Bld) 0.6 % Normal 0.0 - 2.0 [facility] Comment on above: Performed By: #### C BCDF #### [address] [address] Eosinophils (Bld) [#/Vol] 0.10 10*3/uL Normal 0.00 - 0.70 [facility] Comment on above: Performed By: #### C BCDF #### [address] [address] Eosinophils/100 WBC (Bld) 3.5 % Normal 0.0 - 6.0 [facility] Comment on above: Performed By: #### C BCDF #### [address] [address] Erythrocyte distribution width (RBC) [Ratio] 13.3 % Normal 11.5 - 14.5 [facility] Comment on above: Performed By: #### C BCDF #### [address] [address] Hematocrit (Bld) [Volume fraction] 39.2 % Normal 36.0 - 46.0 [facility] Comment on above: Performed By: #### C BCDF #### [address] [address] Hemoglobin (Bld) [Mass/Vol] 13.0 g/dL Normal 12.0 - 16.0 [facility] Comment on above: Performed By: #### C BCDF #### [address] [address] Lymphocytes (Bld) [#/Vol] 1.20 10*3/uL Normal 1.20 - 4.80 [facility] Comment on above: Performed By: #### C BCDF #### [address] [address] Lymphocytes/100 WBC (Bld) 30.7 % Normal 13.0 - 44.0 [facility] Comment on above: Performed By: #### C BCDF #### [address] [address] MCHC (RBC) [Mass/Vol] 33.1 g/dL Normal 32.0 - 36.0 [facility] Comment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 Phone: [facility] 04-03-2022 14:41-0500 Body weight 104.[address] Marc Gusman Work Phone: [facility] 04-03-2022 14:41-0500 Diastolic blood pressure 73 mm[Hg] Dr. Marc Gusman Work Phone: [facility] 04-03-2022 14:41-0500 Systolic blood pressure 117 mm[Hg] Dr. Marc Gusman Work Phone: [facility] 03-10-2022 12:56-0500 Body mass index (BMI) [Ratio] 36.1 kg/m2 Dr. Marc uGsman Work Phone: [facility] 03-10-2022 12:56-0500 Body weight 101.[address] Marc Gusman Work Phone: [facility] 03-10-2022 12:56-0500 Diastolic blood pressure 70 mm[Hg] Dr. Marc Gusman Work Phone: [facility] 03-10-2022 12:56-0500 Systolic blood pressure 110 mm[Hg] Dr. Marc Gusman Work Phone: [facility] 02-06-2022 13:30-0500 Body mass index (BMI) [Ratio] 35.2 kg/m2 Dr. Marc Gusman Work Phone: [facility] 02-06-2022 13:30-0500 Body weight 99.[address] Marc Gusman Work Phone: [facility] 02-06-2022 13:30-0500 Diastolic blood pressure 69 mm[Hg] Dr. Marc Gusman Work Phone: [facility] 02-06-2022 13:30-0500 Systolic blood pressure 104 mm[Hg] Dr. Marc Gusman Work Phone: [facility] 11-13-2021 09:23-0400 Body height 167.[address] Marc Gusman Work Phone: [facility] Work Phone: 11-13-2021 09:23-0400 Body mass index (BMI) [Ratio] 33.6 kg/m2 Dr. Marc Gusman Work Phone: [facility] Work Phone: 11-13-2021 09:23-0400 Body weight 94.[address] Marc Gusman Work Phone: [facility] Work Phone: 11-13-2021 09:23-0400 Diastolic blood pressure 66 mm[Hg] Dr. Marc Gusman Work Phone: [facility] Work Phone: 11-13-2021 09:23-0400 Systolic blood pressure 117 mm[Hg] Dr. Marc Gusman Work Phone: [facility] Work Phone: 03-11-2021 15:38-0500 Body height 165.1 cm Angelina Gusman Work Phone: [facility] Work Phone: 03-11-2021 15:38-0500 Body mass index (BMI) [Ratio] 35.47 kg/m2 Angelina Gusman Work Phone: [facility] Work Phone: 03-11-2021 15:38-0500 Body surface area Derived from formula 2.03 m2 Angelina Gusman Work Phone: [facility] Work Phone: 03-11-2021 15:38-0500 Body temperature 96.9 [degF] Angelina Gusman Work Phone: [facility] Work Phone: 03-11-2021 15:38-0500 Body weight 96.68 kg Angelina Gusman Work Phone: [facility] Work Phone: 03-11-2021 15:38-0500 Diastolic blood pressure 76 mm[Hg] Angelina Gusman Work Phone: [facility] Work Phone: 03-11-2021 15:38-0500 Heart rate 72 /min Angelina Gusman Work Phone: [facility] Work Phone: 03-11-2021 15:38-0500 SaO2% (BldA) [Mass fraction] 97 % Angelina Gusman Work Phone: [facility] Work Phone: 03-11-2021 15:38-0500 Systolic blood pressure 120 mm[Hg] Angelina Gusman Work Phone: [facility] Work Phone: Encounters Encounter Date Encounter Type Care Provider Facility Start: 08-11-2024 ambulatory Rekha Ayala Facility :[facility] Start: 08-05-2024 ambulatory Rekha Ayala Facility :[facility] Start: 08-04-2024 End: 08-04-2024 ambulatory MD [facility] Start: 08-03-2024 End: 08-03-2024 [facility] Start: 07-28-2024 End: 07-28-[address] Katie Parekh MD -[facility] Work Phone: Start: 07-28-2024 End: 07-28-2024 ambulatory Rekha Ayala CNM Work Phone: [facility] Work Phone: Start: 07-28-2024 End: 07-28-2024 ambulatory [facility] Start: 07-28-2024 End: 07-28-2024 ambulatory Rekha Ayala Facility:[facility] Start: 07-20-2024 End: 07-20-2024 ambulatory Rekha Ayala CNM Work Phone: [facility] Work Phone: Start: 07-20-2024 End: 07-20-2024 Patient encounter procedure Rekha Ayala CNM -[facility] Work Phone: Start: 07-19-2024 End: 07-20-2024 ambulatory Rekha Ayala Facility:[facility] Start: 07-15-2024 End: 07-15-2024 Subsequent hospital visit by physician Michelle Reyes MD Work Phone: [facility] Comment on above: Cholestasis; Transaminitis Start: 07-15-2024 End: 07-15-2024 ambulatory MD [facility] Start: 07-15-2024 End: 07-15-2024 ambulatory MD [facility] Start: 07-11-2024 End: 07-11-2024 Patient encounter procedure Rekha Ayala [facility] Work Phone: Start: 07-11-2024 End: 07-11-[address] Katie Parekh MD Work Phone: [facility] Work Phone: Start: 07-11-2024 End: 07-11-2024 ambulatory Rekha Ayala Facility:[facility] Start: 07-01-2024 End: 07-01-2024 Patient encounter procedure Rekha Ayala [facility] Work Phone: Start: 07-01-2024 End: 07-01-2024 ambulatory Rekha Ayala Facility:[facility] Start: 06-17-2024 End: 06-17-2024 Patient encounter procedure Rekha Ayala [facility] Work Phone: Start: 06-17-2024 End: 06-17-2024 ambulatory Rekha Ayala Facility:[facility] Start: 06-03-2024 End: 06-03-[address] Marla Arthur DO [facility] Work Phone: Start: 06-03-2024 End: 06-03-[address] Katie Parekh MD Work Phone: [facility] Work Phone: Start: 06-03-2024 End: 06-03-2024 ambulatory Rekha Ayala Facility:[facility] Start: 05-12-2024 End: 05-12-[address] Marla Arthur DO [facility] Work Phone: Start: 05-12-2024 End: 05-12-2024 ambulatory Marla Arthur Facility:[facility] Start: 04-14-2024 End: 04-14-[address] Marla [facility] DO [facility] Work Phone: Start: 04-14-2024 End: 04-14-2024 ambulatory Marla Arthur Facility:[facility] Start: 03-28-2024 End: 03-28-2024 ambulatory MD MALDONADO [facility] Start: 03-17-2024 End: 03-17-[address] Katie Parekh MD -Laboratory, Specimen Work Phone: Start: 03-17-2024 End: 03-17-[address] Katie Parekh MD -[facility] Work Phone: Start: 03-17-2024 End: 03-17-2024 ambulatory Katie Parekh Facility:[facility] Start: 03-17-2024 End: 03-17-2024 ambulatory Katie Parekh Facility:[facility] Start: 02-23-2024 End: 02-23-2024 [facility] Start: 02-17-2024 End: 02-17-[address] Katie Parekh MD -[facility] Work Phone: Start: 02-17-2024 End: 02-17-2024 ambulatory Katie Parekh Facility:[facility] Start: 02-17-2024 End: 02-17-2024 ambulatory Katie Parekh Facility:[facility] Start: 02-05-2024 End: 02-05-2024 ambulatory Marla Arthur Facility:[facility] Start: 01-21-2024 End: 01-21-2024 ambulatory Rekha Ayala Facility:[facility] Start: 01-21-2024 End: 01-21-2024 ambulatory Rekha Ayala Facility:[facility] Start: 12-25-2022 End: 12-26-2022 ambulatory ANGELINA GUSMAN [facility] Start: 12-25-2022 End: 12-25-2022 ambulatory SANTO Abreu [facility] Ambulatory Start: 12-25-2022 End: 12-25-2022 Office outpatient new 45 minutes Santo Wang MD Work Phone: [facility] Comment on above: Fibromyalgia (Primar y Dx); Arthralgia, unspecified joint; Chronic fatigue; Positive ASAD (antinuclear antibody); Itching Start: 12-10-2022 End: 12-11-2022 ambulatory ANGELINA GUSMAN [facility] Ambulatory Start: 12-10-2022 End: 12-10-2022 Office outpatient visit 25 minutes Angelina Gusman MD Work Phone: [facility] Comment on above: Arthralgia, unspecif ied joint (Primary Dx); Chronic fatigue Start: 07-21-2022 End: 07-21-[address] Marc Gusman Work Phone: [facility] Work Phone: Start: 07-21-2022 End: 07-21-[address] Marc Gusman Work Phone: [facility]-Laboratory, Specimen Start: 07-21-2022 End: 07-21-[address] Marc Gusman Work Phone: [facility] Start: 06-18-2022 End: 06-18-[address] Marc Gusman Work Phone: [facility] Start: 06-12-2022 End: 06-12-[address] Marc Gusman Work Phone: [facility] Start: 06-10-2022 Non-patient / Non-visit Dr. Zayra Gusman Work Phone: [facility] Start: 06-08-2022 Non-patient / Non-visit Dr. Zayra Gusman Work Phone: [facility] Start: 06-08-2022 End: 06-10-2022 Evaluation and management of inpatient [facility] Start: 06-05-2022 End: 06-05-[address] Marc Gusman Work Phone: [facility] Start: 05-29-2022 End: 05-29-[address] Marc Gusman Work Phone: [facility] Start: 05-19-2022 End: 05-19-[address] Marc Gusman Work Phone: [facility] Start: 05-15-2022 End: 05-15-[address] Marc Gusman Work Phone: [facility] Work Phone: Start: 05-15-2022 End: 05-15-[address] [facility] Start: 05-15-2022 End: 05-15-[address] Marc Gusman Work Phone: [facility] Start: 05-01-2022 End: 05-01-[address] Marc Gusman Work Phone: [facility] Start: 04-14-2022 End: 04-14-[address] Marc Gusman Work Phone: [facility] Start: 04-14-2022 End: 04-14-[address] Marc Gusman Work Phone: [facility] Start: 04-03-2022 End: 04-03-[address] Marc Gusman Work Phone: [facility] Start: 03-10-2022 End: 03-10-[address] Marc Gusman Work Phone: [facility] Start: 03-10-2022 End: 03-10-[address] Marc Gusman Work Phone: [facility] Start: 02-18-2022 End: 02-18-[address] Marc Gusman Work Phone: [facility] Start: 02-06-2022 End: 02-06-[address] Marc Gusman Work Phone: [facility] Start: 01-27-2022 End: 01-27-[address] Marc Gusman Work Phone: [facility] Start: 11-13-2021 End: 11-13-[address] Marc Gusman Work Phone: [facility] Work Phone: Start: 11-13-2021 End: 11-13-[address] Marc Gusman Work Phone: [facility] Start: 03-25-2021 Chart Update Angelina Gusman Work Phone: [facility] Work Phone: Start: 03-11-2021 Initial preventive medicine new pt age 18-39yrs Angelina Gusman Work Phone: [facility] Work Phone: Patient encounter status Angelina Gusman Work Phone: [facility] Work Phone: Procedures Date Procedure Procedure Detail Performing Clinician Start: 07-20-2024 Ultrasonography for biophysical profile without non-stress testing Rekha Ayala CNM Work Phone: Start: 07-15-2024 Comprehensive metabo lic panel Michelle Reyes MD Work Phone: Start: 07-15-2024 Hepatitis b surf fox ibshakila hbsab Michelle Reyes MD Work Phone: Start: 07-11-2024 Procedure Rekha griggs CNM Work Phone: Comment on above: Sent directly to [facility] facility per ordering physician. Start: 06-03-2024 Serologic test for syphilis Dr. Katie Parekh MD Work Phone: Start: 03-17-2024 Gram stain microscopy D brock Parekh MD Work Phone: Start: 03-17-2024 End: 03-17-[address] Katie duarte MD Work Phone: Start: 12-25-2022 PROTEIN, URINE RANDOM C HRWALDEMAR GUSMAN Start: 12-25-2022 URINALYSIS WITH REFL EX MICROSCOPIC ANGELINA GUSMAN Start: 12-25-2022 C3 COMPLEMENT [facility] Start: 12-25-2022 C4 COMPLEMENT [facility] Start: 12-25-2022 AMB REFERRAL TO DERMATOLOGY ANGELINA GUSMAN Start: 12-25-2022 AMB REFERRAL TO RHEUMATOLOGY ANGELINA GUSMAN Start: 12-10-2022 Comprehensive metabo lic 2000 panel - Serum or Plasma ANGELINA GUSMAN Start: 12-10-2022 ASAD-WITH REFLEX TO THO ANGELINA GUSMAN Start: 12-10-2022 C-reactive protein CHRI FRANKY GUSMAN Start: 12-10-2022 CBC panel - Blood by Automated count ANGELINA GUSMAN Start: 12-10-2022 CITRULLINE ANTIBODY, IGG ANGELINA GUSMAN Start: 12-10-2022 Cyanocobalamin vitamin b-12 ANGELINA GUSMAN Start: 12-10-2022 THO PANEL MRAC GUSMAN Start: 12-10-2022 LYME DISEASE (BORREL IA BURGDORFERI), PCR ANGELINA GUSMAN Start: 12-10-2022 RHEUMATOID FACTOR CHASE GUSMAN Start: 12-10-2022 SEDIMENTATION RATE, AUTOMATED ANGELINA GUSMAN Start: 12-10-2022 Thyrotropin [Units/v olume] in Serum or Plasma ANGELINA GUSMAN Start: 07-21-2022 Microscopic observat ion [Identifier] in Cervix by Cyto stain Angelina Gusman MD Work Phone: Extraction of wisdom tooth C hrhughariana Gusman Work Phone: Group B Streptococcu s Culture Dr. Marc Gusman Work Phone: Operative procedure on foot Angelina Gusman Work Phone: Urine culture Dr. Marc Gusman Work Phone: Plan of Treatment Date Care Activity Detail Author Start: 2040 Zoster Vaccines (1 of 2) Zoste r Vaccines (1 of 2) [facility] Start: 04-03-2032 DTaP/Tdap/Td Vaccine s (2 - Td or Tdap) DTaP/Tdap/Td Vaccines (2 - Td or Tdap) [facility] Start: 07-21-2025 Screening for malign ant neoplasm of cervix [facility] Start: 08-23-2024 End: 08-23-2024 Professional / ancillary services management 08/23/2024 8:00 AM EDT Ancillary Procedure Visit [facility] [address], [address] [address] Weekly testing [facility] Comment on above: Weekly testing [facility] Start: 08-16-2024 End: 08-16-2024 Professional / ancillary services management 08/16/2024 9:00 AM EDT Ancillary Procedure Visit [facility], [address] [place] [id number] Weekly testing [facility] Comment on above: Weekly testing [facility] Start: 08-04-2024 End: 08-04-2024 Professional / ancillary services management 08/04/2024 1:00 PM EDT Ancillary Procedure Visit [facility] [address], [address] [place] [id number] Weekly testing [facility] Comment on above: Weekly testing [facility] Start: 07-28-2024 CBC W Auto Different ial panel - Blood [facility] Start: 07-28-2024 Comprehensive metabo lic 2000 panel - Serum or Plasma [facility] Start: 07-28-2024 Streptococcus agalac tiae [Presence] in Unspecified specimen by Organism specific culture [facility] Start: 07-28-2024 Group B Streptococcu s Culture Group B Streptococcus Culture [facility] Start: 07-28-2024 End: 07-28-2024 Professional / ancillary services management 07/28/2024 11:30 AM EDT Ancillary Procedure Visit [facility] [address] [facility] [facility], [address] [place] [address] Weekly testing [facility] Comment on above: Weekly testing [facility] Start: 07-20-2024 Tetanus Diphtheria a nd Pertussis Vaccines (3 - Td or Tdap) Tetanus Diphtheria and Pertussis Vaccines (3 - Td or Tdap) [facility] Start: 07-19-2024 End: 07-19-2024 Professional / ancillary services management 07/19/2024 9:00 AM EDT Ancillary Procedure Visit [facility] [address], [address] [place] [address] Weekly testing [facility] Comment on above: Weekly testing [facility] Start: 07-11-2024 Procedure [facility] Start: 11-01-2023 COVID-19 (2023-04 5 season) COVID-19 ( season) [facility] Start: 01-23-2023 COVID-19 Vaccine (4 - Moderna series) COVID-19 Vaccine (4 - Moderna series) [facility] Start: 12-25-2022 End: 12-26-2023 Complement C3 [Mass/volume] in Serum or Plasma C3 Complement Lab Routine Arthralgia, unspecified joint Positive ASAD (antinuclear antibody) Expected: 12/25/2022 (Approximate), Expires: 12/26/2023 [facility] Service Area Work Phone: Comment on above: Expected: 12/25/2022 (Approximate), Expires: 12/26/2023 Start: 12-25-2022 End: 12-26-2023 Complement C4 [Mass/volume] in Serum or Plasma C4 Complement Lab Routine Arthralgia, unspecified joint Positive ASAD (antinuclear antibody) Expected: 12/25/2022 (Approximate), Expires: 12/26/2023 [facility] Work Phone: Comment on above: Expected: 12/25/2022 (Approximate), Expires: 12/26/2023 Start: 12-25-2022 End: 12-26-2023 Protein, Urine Random Protein, Urine Random Lab Routine Arthralgia, unspecified joint Positive ASAD (antinuclear antibody) Expected: 12/25/2022 (Approximate), Expires: 12/26/2023 [facility] Work Phone: Comment on above: Expected: 12/25/2022 (Approximate), Expires: 12/26/2023 Start: 12-25-2022 End: 12-26-2023 Urinalysis complete panel - Urine Urinalysis with Reflex Microscopic Lab Routine Arthralgia, unspecified joint Positive ASAD (antinuclear antibody) Expected: 12/25/2022 (Approximate), Expires: 12/26/2023 [facility] Work Phone: Comment on above: Expected: 12/25/2022 (Approximate), Expires: 12/26/2023 Start: 12-10-2022 End: 12-11-2023 Borrelia burgdorferi DNA [Presence] in Unspecified specimen by NEHEMIAH with probe detection [facility] Work Phone: Comment on above: Expected: 12/10/2022 (Approximate), Expires: 12/11/2023 Start: 12-10-2022 End: 12-11-2023 C reactive protein [Mass/volume] in Serum or Plasma [facility] Work Phone: Comment on above: Expected: 12/10/2022 (Approximate), Expires: 12/11/2023 Start: 12-10-2022 End: 12-11-2023 CBC panel - Blood by Automated count [facility] Service Area Work Phone: Comment on above: Expected: 12/10/2022 (Approximate), Expires: 12/11/2023 Start: 12-10-2022 End: 12-11-2023 Cobalamin (Vitamin B12) [Mass/volume] in Serum or Plasma [facility] Work Phone: Comment on above: Expected: 12/10/2022 (Approximate), Expires: 12/11/2023 Start: 12-10-2022 End: 12-11-2023 Comprehensive metabolic 2000 panel - Serum or Plasma [facility] Work Phone: Comment on above: Expected: 12/10/2022 (Approximate), Expires: 12/11/2023 Start: 12-10-2022 End: 12-11-2023 Cyclic citrullinated peptide IgG Ab [Units/volume] in Serum or Plasma [facility] Work Phone: Comment on above: Expected: 12/10/2022 (Approximate), Expires: 12/11/2023 Start: 12-10-2022 End: 12-11-2023 Erythrocyte sedimentation rate [facility] Work Phone: Comment on above: Expected: 12/10/2022 (Approximate), Expires: 12/11/2023 Start: 12-10-2022 End: 12-11-2023 Nuclear Ab [Presence] in Serum by Hep2 substrate [facility] Work Phone: Comment on above: Expected: 12/10/2022 (Approximate), Expires: 12/11/2023 Start: 12-10-2022 End: 12-11-2023 Rheumatoid factor [Units/volume] in Serum by Nephelometry [facility] Work Phone: Comment on above: Expected: 12/10/2022 (Approximate), Expires: 12/11/2023 Start: 12-10-2022 End: 12-11-2023 Thyrotropin [Units/volume] in Serum or Plasma [facility] Work Phone: Comment on above: Expected: 12/10/2022 (Approximate), Expires: 12/11/2023 Start: 07-21-2022 Liquid based cervica l cytology screening [facility] Start: 06-10-2022 Patient discharge [facility] Start: 06-09-2022 Administration of medication [facility] Start: 06-09-2022 Application of ice c ollar, cap or bag [facility] Start: 06-09-2022 Catheterization of vein [facility] Start: 06-09-2022 Introduction of urin henrietta catheter [facility] Start: 06-09-2022 Measuring intake and output [facility] Start: 06-09-2022 Notification of physician [facility] Start: 06-09-2022 Procedure discontinued [facility] Start: 06-09-2022 Provision of activit y privileges [facility] Start: 06-09-2022 Vital signs measurements [facility] Start: 06-09-2022 [facility] Start: 06-08-2022 Admission procedure [facility] Start: 06-08-2022 Verification routine [facility] Start: 11-13-2021 Toxoplasma gondii Ig G Ab [Units/volume] in Serum [facility] Work Phone: Start: 2011 Microscopic observat ion [Identifier] in Cervix by Cyto stain Pap Smear [facility] Start: 2011 Screening for malign ant neoplasm of cervix HPV/Cotest [facility] Start: 2009 Hepatitis B (1 of 3 - 19+ 3-dose series) Hepatitis B (1 of 3 - 19+ 3-dose series) [facility] Start: 2008 Hepatitis C screening Hepatitis C [facility] Start: 2006 MenB (1 of 2 - MenB 2-Dose Series Bexsero) MenB (1 of 2 - MenB 2-Dose Series Bexsero) [facility] Start: 2003 Varicella (1 of 2 - 13+ 2-dose series) Varicella (1 of 2 - 13+ 2-dose series) [facility] Start: 1991 MMR (1 of 1 - Standa rd series) MMR (1 of 1 - Standard series) [facility] Start: 1991 MMR Vaccines (1 of 1 - Standard series) MMR Vaccines (1 of 1 - Standard series) [facility] Start: 1991 Varicella vaccination Varicell a Vaccines (1 of 2 - 2-dose childhood series) [facility] Start: 1990 Hepatitis B Vaccines (1 of 3 - 3-dose series) Hepatitis B Vaccines (1 of 3 - 3-dose series) [facility] Start: 1990 HIV screening HIV Screening [facility] Start: 1990 Lipid panel Lipid Panel [facility] Start: 1990 Yearly Adult Physical Yearly Adult P [facility] Alanine aminotransfe rase [Enzymatic activity/volume] in Serum or Plasma [facility] Albumin [Mass/volume ] in Serum or Plasma [facility] Alkaline phosphatase [Enzymatic activity/volume] in Serum or Plasma [facility] Anion gap in Serum o r Plasma [facility] Beta-hemolytic Streptococcus culture [facility] End: 07-15-2024 Bile Acids, Fractionated and Total [facility] Comment on above: 1 Occurrences starti ng 07/15/2024 until 07/15/2024 Bilirubin, total measurement [facility] BUN/Creatinine ratio [facility] Calcium [Mass/volume ] in Serum or Plasma [facility] Carbon dioxide, tota l [Moles/volume] in Central venous blood [facility] End: 07-15-2024 Ceruloplasmin [facility] Comment on above: 1 Occurrences starti ng 07/15/2024 until 07/15/2024 Creatinine [Mass/vol ume] in Serum or Plasma [facility] Erythrocyte mean corpuscular volume determination [facility] Glucose [Mass/volume ] in Serum or Plasma [facility] Hematocrit [Volume Fraction] of Blood [facility] Hemoglobin [Mass/vol ume] in Blood [facility] Leukocytes [#/volume ] in Blood [facility] End: 07-15-2024 Bernard Miscellaneous Sendout: Mitochondrial Antibodies (M2) IgG Serum [facility] Comment on above: 1 Occurrences starti ng 07/15/2024 until 07/15/2024 Mean corpuscular hemoglobin concentration determination [facility] Mean corpuscular hemoglobin determination [facility] Measurement of renal function [facility] Neutrophil count [facility] Neutrophil percent differential count [facility] Path report.final Dx Spec [facility] Patient Education After a Vaginal [facility] Work Phone: Patient referral [facility] Work Phone: Platelets [#/volume] in Blood [facility] Potassium measurement [facility] Red blood cell count [facility] Red cell distributio n width determination [facility] Serum chloride measurement [facility] End: 07-15-2024 Smooth Muscle Ab Screen with Reflex to titer if positive [facility] Work Phone: Comment on above: 1 Occurrences starti ng 07/15/2024 until 07/15/2024 Sodium measurement [facility] Total protein measurement [facility] End: 07-15-2024 Toxoplasma IgG & IgM ( Screen) [facility] Comment on above: 1 Occurrences starti ng 07/15/2024 until 07/15/2024 Urea nitrogen [Mass/volume] in Serum [facility] [place] Immunization Date Immunization Notes Care Provider Estephania saul 06-03-2024 influenza, injectabl e, madin yudith canine kidney, preservative free Dr. Katie Parekh MD Work Phone: [facility] 01-21-2024 tetanus toxoid, reduced diphtheria toxoid, and acellular pertussis vaccine, adsorbed Dr. Katie Parekh MD Work Phone: [facility] 04-03-2022 tetanus toxoid, reduced diphtheria toxoid, and acellular pertussis vaccine, adsorbed Dr. Marc Gusman Work Phone: [facility] 01-16-2022 Pfizer COVID-19 vaccine, bivalent, age 12 years and older (30 mcg/0.3 mL) Angelina Gusman MD Work Phone: [facility] Work Phone: 01-31-2021 influenza, injectabl e, quadrivalent, preservative free Angelina Gusman Work Phone: [facility] Work Phone: 01-13-2021 Pfizer-BioNTech COVID-19 Vacc 30 MCG/0.3ML Intramuscular Suspension Angelina Gusman Work Phone: [facility] Work Phone: 06-15-2020 Moderna COVID-19 Vaccine 100 MCG/0.5ML Intramuscular Suspension Angelina Bearden Gusman Work Phone: [facility] Work Phone: 05-17-2020 Moderna COVID-19 Vaccine 100 MCG/0.5ML Intramuscular Suspension Chiariana Monisha Gusman Work Phone: [facility] Work Phone: 12-12-2019 Influenza, injectabl e, Madin Aurora Canine Kidney, preservative free, quadrivalent Angelina Gusman Work Phone: [facility] Work Phone: 12-12-2019 influenza, injectabl e, quadrivalent, contains preservative Angelina Gusman MD Work Phone: [facility] Work Phone: 12-17-2018 Influenza, injectabl e, Madin Yudith Canine Kidney, preservative free, quadrivalent Angelina Gusman Work Phone: [facility] Work Phone: 12-17-2018 influenza, injectabl e, quadrivalent, contains preservative Angelina Gusman MD Work Phone: [facility] Work Phone: Payers Date Payer Category Payer Self-pay 2020 Private Health Insurance [id number] 2020 Private Health Insurance [id number] 1990 Unknown [id number] 2.16.8 40.1.627987.3.579.2.1244 1990 Unknown [id number] 2.16.8 40.1.161137.3.579.2.1244 1990 Unknown [id number] 2.16.84 0.1.433895.3.579.2.1245 1990 Unknown [id number] 2.16.84 0.1.011799.3.579.2.1245 1990 Unknown [id number] 2.16. 840.1.919438.3.579.2479 1990 Unknown [id number] 2.16. 840.1.401277.3.579.2.479 1990 Unknown [id number] 2.16. 840.1.544328.3.579.2.479 1990 Unknown [id number] 2.16. 840.1.851226.3.579.2.479 1990 Unknown [id number] 2.16. 840.1.190628.3.579.2.479 1990 Unknown [id number] 2.16. 840.1.189632.3.579.2.479 1990 Unknown [id number] 2.16. 840.1.097866.3.579.2.479 1990 Unknown [id number] 2.16. 840.1.232373.3.579.2.479 1990 Unknown [id number] 2.16. 840.1.597110.3.579.2.479 Unknown Unknown [id number] 2.16.8 40.1.220020.3.579.2.462 Unknown [id number] 2.16.8 40.1.731413.3.579.2.462 Unknown [id number] 2.16.8 40.1.265483.3.579.2.462 Unknown [id number] 2.16.8 40.1.401628.3.579.2.462 Unknown [id number] 2.16.8 40.1.190252.3.579.2.462 Unknown [id number] 2.16.8 40.1.873434.3.579.2.462 Unknown [id number] 2.16.8 40.1.424499.3.579.2.462 Unknown [id number] 2.16.8 40.1.368590.3.579.2.462 Unknown [id number] 2.16.8 40.1.289139.3.579.2.462 Unknown [id number] 2.16.8 40.1.939876.3.579.2.462 Unknown [id number] 2.16.8 40.1.950456.3.579.2.462 Unknown [id number] 2.16.8 40.1.679535.3.579.2.462 Unknown [id number] 2.16.8 40.1.397965.3.579.2.462 Unknown [id number] 2.16.8 40.1.900181.3.579.2.462 Unknown [id number] 2.16.8 40.1.547090.3.579.2.462 Unknown [id number] 2.16.8 40.1.073778.3.579.2.462 Unknown [id number] 2.16.8 40.1.575415.3.579.2.462 Unknown [id number] 2.16.8 40.1.569515.3.579.2.462 Unknown [id number] 2.16.8 40.1.942671.3.579.2.462 Unknown [id number] 2.16.8 40.1.426288.3.579.2.462 Social History Date Type Detail Facility Start: 12-10-2022 Non-smoker Non-smoker [facility] Work Phone: Start: 11-13-2021 End: 07-21-2022 Tobacco smoking status NHIS Unknown if ever smoked [facility] Start: 1990 Sex Assigned At Female [facility] Start: 12-10-2022 End: 01-21-2024 Tobacco smoking status NHIS Never smoked tobacco [facility] Work Phone: Start: 12-10-2022 End: 07-13-2024 Tobacco use and exposure Smokeless tobacco non-user [facility] Work Phone: Start: 12-10-2022 Alcohol intake Current drinke r of alcohol (finding) [facility] Work Phone: Start: 1990 Sex Assigned At Not on file [facility] Work Phone: Start: 12-10-2022 Gender identity Not on file [facility] Work Phone: Start: 11-30-2022 End: 12-25-2022 Exposure to SARS-CoV-2 (event) Not sure [facility] Start: 06-06-2024 Sex Female (finding) [facility] Start: 07-15-2024 Alcoholic beverage intake Ex-drinker (finding) [facility] Start: 12-04-2023 [facility] Goals Date Patient Goal Desired Activity /State Clinical Notes 03-11-2019 to 08-03-2024 Note Date & Type Note Facility 08-03-2024 Note [facility] pital MFM (follow-up)CONSULTATION Referring Provider Rekha Ayala, DANIA [address] [facility] [address] [place] [address] Orly Ray is a 34-year-old 2 para 1-0-0-1 at 36 weeks and 5 days. She had a MFM consultation last week for presumed cholestasis. She had the specific complaint of pruritus especially of the feet and was getting some relief with Actigall. She had mildly elevated transaminases and her total bile acids were 7.7. Given her clinical picture, she was diagnosed with presumed cholestasis. Today's video visit was scheduled to go over delivery planning. We also reviewed the laboratory studies that were ordered at the prior visit (07/15). Her laboratory results are as follows: Toxoplasmosis IgG and IgM normal Direct bilirubin less than 0.2 (normal) AST 26 ALT 48 Smooth muscle Ab screen negative Ceruloplasmin 54.6 (not low) Hepatitis A IgM nonreactive Hepatitis B surface antibody negative Hepatitis B core antibody negative Total fractionated bile acids 14.21 nmol/ml (consistent with intrahepatic cholestasis of ) It was reviewed with the patient today that given her diagnosis of intrahepatic cholestasis of , that delivery is advised prior to 39w. Since she is currently 36 weeks and 5 days, I will work to get today's letter to her primary OB so that they can begin delivery planning. I am recommending that her delivery be planned in the 37-38 week window. She tells me that her past was a vaginal delivery. She states that she recently had an exam at her OB office and that the baby is vertex and that she is 1 to 2 cm dilated. So she would be an excellent candidate for induction of labor in the upcoming week. She reports that she is overall feeling well. She does still have itching on her feet especially early in the morning before she takes her regular dose of Actigall. She reports normal blood pressure readings at OB visits. Summary: Intrahepatic cholestasis of at 36 weeks and 5 days. Total fractionated bile acids are increased but < 100. Per [facility], delivery is recommended between 36-0/7 weeks and 39-0/7 weeks of gestation. I am recommending delivery in the 37th-week of gestation. The total time spent on patient care today was 30 minutes. -10 minutes direct patient care (video) -20 minutes chart review and documentation Patricia Coley MD Maternal- Medicine [facility] [phone] [facility] 07-28-2024 Progress note Note Date/Time July 28, 2024 1:58pm [facility] [address], [address] [place] [address] OFFICE VISIT Date of Service: 07/28/24 MR#: [id number] Acct: [id number] Name: ORLY RAY Rep #: [id number] : 1990 Provider: Dr. Pepe Parekh MD Age/Sex: 34/F [place] [facility] [place] Signed Intake Vital Signs 06/03/24 11:24 07/11/24 11:22 07/28/24 13:10 Height 5 ft 6 in 5 ft 6 in 5 ft 6 in Weight: 235 lb 2 oz BMI 37.9 BP 117/68 Intake Visit Reasons: 36wk ob Sports Medicine [place] Required: No Is patient in pain?: No Feel stressed/tense/nervous/anxious/difficulty sleeping: not at all Allergies No Known Allergies Allergy (Verified 07/28/24 13:11) Medications ?Medication ?Instructions ?Recorded ?Confirmed ?Type multivitamin no.47-iron fum 27 cap PO 07/28/24 History mg-folate no.1 1 mg-dha 300 mg capsule (PNV-DHA) ondansetron 4 mg disintegrating 4 mg PO Q6H PRN nausea and 01/21/24 07/28/24 Rx tablet vomiting #90 tabs ursodiol 300 mg capsule 300 mg PO BID #60 caps 07/1107/28/24 Rx Last Menstrual Period: 11/20/23 Zika: Zika virus screening: Negative : No PFSH PFSH Medical History Back pain Vaginal delivery Family History Father Colon cancer, Onset Age: 50 Survivor Social History adopted: No household members: spouse and children housing: house number of children: 1 current occupational 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 occupational exposures/hazards: Yes pets and animals: Yes pets and animals: cat(s), dog(s) and farm animals leisure activities: sports history of recent travel: No sexually active: Yes Smoking Status: Never smoker second hand exposure: No alcohol intake: former details: Not while substance use type: does not use well-balanced diet: daily or most days caffeine: Yes Type: coffee Number of servings: 2 and tea Number of servings: 1 eating out: 1-3 times/week during the past year weight has: increased > 10 lbs what type of physical activity do you participate in: walking frequency: 1-2 times per week duration: 15-30 minutes/day grazyna/mosque: [employer] seatbelt use: always do you feel safe at home: Yes additional social history: Spouse Luis- Ops Manager History 2 Elective abortions Hx Para 1 Spontaneous abortions Hx # Term Pregnancies 1 Ectopic pregnancies Hx # Pregnancies Multiple births # of living children 1 Past Pregnancies Del. Date Name GA/Weeks Outcome Route Bth Weight Infant Gen Labor Lgth Anesthesia Del Locatn Provider FOB 06/08/22 Pippa 39 live - full term 8lb 1oz Female [facility] Marcanthony Delivery Date: 06/08/22 Last Updated by: Nivia Castillo IOL HPI 36wk ob Details: ORLY RAY is a 34 year old who presents for routine OB visit. OB Visit SOLANGE Calculator Estimated Delivery Date Method Current WG Current Estimate 08/26/24 LMP (Certain) 35w 6d Expected Delivery Route/Plan Labor Preferences- CB/BF classes: [] labor support person: [] labor intervention preferences: [] pain management options preferred: [] cut cord/dad catch: [] : [] PP control planned: [] discussed possible routes of delivery and associated risks: [] special requests: [] Specific Issue/Plans Covid status: [] Flu vaccine: [] Tdap vaccine: [] Rhogam: [] LARC form signed: [] Problem list reviewed and updated with the most current plan of care details and appropriate orders placed. Relevant counseling for the gestational age provided. Continue routine care and follow up unless otherwise noted in visit notes/problem list details Initial Weight: 222 lb Date -?-?-?-?-?-?-?-?-?-?-?-?- EGA Weight BP Urine Prot -?-?-?-?-?-?-?-?-?-?-?-?- Glucose FHR FuHt Pres Dilation -?-?-?-?-?-?-?-?-?-?-?-?- Effaced St Visit Note 01/21/24 -?-?-?-?-?-?-?-?-?-?-?-?- 8w 6d 222 lb (+0 oz) 114/75 -?-?-?-?-?-?-?-?-?-?-?-?- 180 -?-?-?-?-?-?-?-?-?-?-?-?- KW- CRL cons wit h dates. accepts NIPT. flu shot today. 02/17/24 -?-?-?-?-?-?-?-?-?-?-?-?- 12w 5d 218 lb 8 oz (-3 lb 8 oz) 126/78 Negative -?-?-?-?-?-?-?-?-?-?-?-?- Negative 150 -?-?-?-?-?-?-?-?-?-?-?-?- SM- reviewed NIP T results today, normal bedside scan but limited positioning. offered immediate MFM referral for possible CVS, patient requesting repeat NIPT first, will accept NT screen with MFM in meantime though 03/17/24 -?-?-?-?-?-?-?-?-?-?-?-?- 16w 6d 223 lb 2 oz (+1 lb 2 oz) 114/73 Negative -?-?-?-?-?-?-?-?-?-?-?-?- Negative 150 -?-?-?-?-?-?-?-?-?-?--?-?- Sm- no vb lof go od fm no regular ctx 04/14/24 -?-?-?-?-?-?-?-?-?-?-?-?- 20w 6d 224 lb 2 oz (+2 lb 2 oz) 114/71 Negative -?-?-?-?-?-?-?-?-?-?-?-?- Negative 148 -?-?-?-?-?-?-?-?-?-?-?-?- JV- no complaint s. Just confused if needs growth scans q 4 weeks for marginal cord insertion. JV- no complaints. Just conf used if needs growth scans q 4 weeks for marginal cord insertion.message out to MFM to know the answer. will call her soon. 05/12/24 -?-?-?-?-?-?-?-?-?-?-?-?- 24w 6d 226 lb 2 oz (+4 lb 2 oz) 101/62 Negative -?-?-?-?-?-?-?-?-?-?-?-?- Negative 145 25 -?-?-?-?-?-?-?-?-?-?-?-?- JV- no complaint s today + FM. plan for glucola today. 06/03/24 -?-?-?-?-?-?-?-?-?-?-?-?- 28w 0d 228 lb 8 oz (+6 lb 8 oz) 117/75 Negative -?-?-?-?-?-?-?-?-?-?-?-?- Negative 140 29 -?-?-?-?-?-?-?-?-?-?-?-?- JV- glucola done today. + FM. Wants flu shot today. 06/17/24 -?-?-?--?-?-?-?-?-?-?-?-?- 30w 0d 230 lb 4 oz (+8 lb 4 oz) 126/79 Negative -?-?-?-?-?-?-?-?-?-?-?-?- Negative 130 30 -?-?-?-?-?-?-?-?-?-?-?-?- KW- no vb/lof/ct x. good fm. Planning on donating cord blood. 07/01/24 -?-?-?-?-?-?-?-?-?-?-?-?- 32w 0d 233 lb (+11 lb) 107/72 Negative -?-?-?-?-?-?-?-?-?-?-?-?- Negative 130 33 -?-?-?-?-?-?-?-?-?-?-?-?- KW- work in for JV. no vb/lof/ctx. good fm. no concerns today. 07/11/24 -?-?-?-?-?-?-?-?-?-?-?-?- 33w 3d 231 lb 2 oz (+9 lb 2 oz) 134/82 Negative -?-?-?-?-?-?-?-?-?-?-?-?- Negative 130 34 -?-?-?-?-?-?-?-?-?-?-?-?- KW- no vb/lof/ct x. good fm. sick last week. has had itching on soles of feet and palms of hands. she is concerned for cholestasis-labs ordered. KW- no vb/lof/ctx. good fm. sick last week. has had itching on soles of feet and palms of hands for the last 2 nights. she is concerned for cholestasis-labs ordered. is relieved with Benadryl cream when she uses it. 07/28/24 -?-?-?-?-?-?-?-?-?-?-?-?- 35w 6d 235 lb 2 oz (+13 lb 2 oz) 117/68 Negative -?-?-?-?-?-?-?-?-?-?-?-?- Negative 135 36 Cephalic 2 -?-?-?-?-?-?-?-?-?-?-?-?- SM- no vb lof go od fm no regular ctx no significant ctx SM- no vb lof good fm no reg ular ctx gbs collected planning mfm teleheath visit next thursday and cbc cmp today ACOG First Trimester First Trimester: Desire for , Alcohol, Tobacco Cessation, Illicit/Recreational Drug/Substance Use, Intimate Partner Violence, Barriers to care, Unstable Housing, Communication Barriers, Environmental/Work Hazards, Anticipated Course of Care, Toxoplasmosis Precations, Use of Any medications, Sexual activity, Exercise, Dental Care, Sauna/Hot tub use, Seat Belt use, Childbirth classes/Hospital facilities, Travel, Indications for Ultrasound and Screening for Aneuploidy; Discussed Second Trimester Second Trimester: Signs and Symptoms of Labor, Selecting a care provider, Reproductive Life Planning & Contreception, Care Planning, Depression/Anxiety and Intimate Partner Violence; Discussed Tobacco Cessation Third Trimester Third Trimester: Pain Management Plans, Labor support person(s), Immediate Larc, Movement Monitoring, Signs and Symptoms of Preeclampsia and Education Results POC Urinalysis 2 Dip (Clinic) Office Urine Glucose Negative Last Edit by Dina Kirk on 07/28/24 13:18 Office Urine Protein Negative Last Edit by Dina Kirk on 07/28/24 13:18 Coding Level of Care Code OB Routine Diagnoses Cholestasis during O26.649 Pruritus of O99.719; L29.9 Marginal insertion of umbilical cord affecting management of mother O43.199 Abnormal genetic test during O28.5 Back pain M54.9 Supervision of high-risk O09.90 Obesity affecting O99.210 35 weeks gestation of Z3A.35 Weeks of gestation: 35 weeks Family hx of colon cancer Z80.0 Assessment and Plan Assessment and Plan (1) Cholestasis during : Status: Acute Comment: twice weekly BPPs, weekly labs, consult with MFM per KW. MFM said unclear diagnosis- await telehealth visit to determine deliveyr timing (2) Pruritus of : Status: Acute Comment: elevated AST. cbc nl and bile acids 7.7. MFM consult (3) Marginal insertion of umbilical cord affecting management of mother: Status: Acute Comment: per mfm, NO q 4 week scans needed (4) Abnormal genetic test during : Status: Acute Comment: high risk low fraction 1:17 for triploidy, tri18 tri 13. patient requests repeat NIPT low risk,and MFM referral for NT screen possible CVS eventually (5) Back pain: Status: Acute (6) Supervision of high-risk : Status: Acute Comment: PRR, , SOLANGE 08/26/24, boy, PC Pippa, Luis (7) Obesity affecting : Status: Acute Comment: [id number] (8) : Status: Acute Qualifiers: Weeks of gestation: 35 weeks Qualified Code(s): Z3A.35 - 35 weeks gestation of Comment: NIPT low risk. nl NT screen, nl anatomy, nl GCT (9) Family hx of colon cancer: Status: Acute Comment: Father 50 yo Survivor Orders: Orders POC Urinalysis 2 Dip (Clinic) Today Plan Details Goals & Barriers: Goals Decrease pain Decrease spasm Improve ROM 07/28/24 1356 <Electronically signed by Katie gotti MD> Date _ Katie Parekh MD [facility] Signature: Date (if applicable) CC: ~ [facility] Work Phone: 1(149) 416-843505-29-2025 [facility] [address] [place] [address], [address] [place] [address] OFFICE VISIT Date of Service: 07/28/24 MR#: [id number] Acct: [id number] Name: ORLY RAY Rep #: [id number] : 1990 Provider: Dr. Pepe Parekh MD Age/Sex: 34/F [place] [facility] Status: Signed Intake Vital Signs 06/03/24 11:24 07/11/24 11:22 07/28/24 13:10 Height 5 ft 6 in 5 ft 6 in 5 ft 6 in Weight: 235 lb 2 oz BMI 37.9 BP 117/68 Intake Visit Reasons: 36wk ob Sports Medicine [place] Required: No Is patient in pain?: No Feel stressed/tense/nervous/anxious/difficulty sleeping: not at all Allergies No Known Allergies Allergy (Verified 07/28/24 13:11) Medications ?Medication ?Instructions ?Recorded ?Confirmed ?Type multivitamin no.47-iron fum 27 cap PO 07/28/24 History mg-folate no.1 1 mg-dha 300 mg capsule (PNV-DHA) ondansetron 4 mg disintegrating 4 mg PO Q6H PRN nausea and 01/21/24 07/28/24 Rx tablet vomiting #90 tabs ursodiol 300 mg capsule 300 mg PO BID #60 caps 07/1107/28/24 Rx Last Menstrual Period: 11/20/23 Zika: Zika virus screening: Negative : No PFSH PFSH Medical History Back pain Vaginal delivery Family History Father Colon cancer, Onset Age: 50 Survivor Social History adopted: No household members: spouse and children housing: house number of children: 1 current occupational 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 occupational exposures/hazards: Yes pets and animals: Yes pets and animals: cat(s), dog(s) and farm animals leisure activities: sports history of recent travel: No sexually active: Yes Smoking Status: Never smoker second hand exposure: No alcohol intake: former details: Not while substance use type: does not use well-balanced diet: daily or most days caffeine: Yes Type: coffee Number of servings: 2 and tea Number of servings: 1 eating out: 1-3 times/week during the past year weight has: increased > 10 lbs what type of physical activity do you participate in: walking frequency: 1-2 times per week duration: 15-30 minutes/day grazyna/mosque: [employer] seatbelt use: always do you feel safe at home: Yes additional social history: Spouse Luis- Ops Manager History 2 Elective abortions Hx Para 1 Spontaneous abortions Hx # Term Pregnancies 1 Ectopic pregnancies Hx # Pregnancies Multiple births # of living children 1 Past Pregnancies Del. Date Name GA/Weeks Outcome Route Bth Weight Infant Gen Labor Lgth Anesthesia Del Locatn Provider FOB 06/08/22 Pippa 39 live - full term 8lb 1oz Female [facility] Miketarrs Delivery Date: 06/08/22 Last Updated by: Nivia Castillo IOL HPI 36wk ob Details: ORLY RAY is a 34 year old who presents for routine OB visit. OB Visit SOL[facility] Calculator Estimated Delivery Date Method Current WG Current Estimate 08/26/24 LMP (Certain) 35w 6d Expected Delivery Route/Plan Labor Preferences- CB/BF classes: [] labor support person: [] labor intervention preferences: [] pain management options preferred: [] cut cord/dad catch: [] : [] PP control planned: [] discussed possible routes of delivery and associated risks: [] special requests: [] Specific Issue/Plans Covid status: [] Flu vaccine: [] Tdap vaccine: [] Rhogam: [] LARC form signed: [] Problem list reviewed and updated with the most current plan of care details and appropriate ordersplaced. Relevant counseling for the gestational age provided. Continue routine care and follow up unless otherwise noted in visit notes/problem list details Initial Weight: 222 lb Date -?-?-?-?-?-?-?-?-?-?-?-?- EGA Weight BP Urine Prot -?-?-?-?-?-?-?-?-?-?-?-?- Glucose FHR FuHt Pres Dilation -?-?-?-?-?-?-?-?-?-?-?-?- Effaced St Visit Note 01/21/24 -?-?-?-?-?-?-?-?-?-?-?-?- 8w 6d 222 lb (+0 oz) 114/75 -?-?-?-?-?-?-?-?-?-?-?-?- 180 -?-?-?-?-?-?-?-?-?-?-?-?- KW- CRL cons wit h dates. accepts NIPT. flu shot today. 02/17/24 -?-?-?-?-?-?-?-?-?-?-?-?- 12w 5d 218 lb 8 oz (-3 lb 8 oz) 126/78 Negative -?-?-?-?-?-?-?-?-?-?-?-?- Negative 150 -?-?-?-?-?-?-?-?-?-?-?-?- SM- reviewed NIP T results today, normal bedside scan but limited positioning. offered immediate MFM referral for possible CVS, patient requesting repeat NIPT first,will accept NT screen with MFM in meantime though 03/17/24 -?-?-?-?-?-?-?-?-?-?-?-?- 16w 6d 223 lb 2 oz (+1 lb 2 oz) 114/73 Negative -?-?-?-?-?-?-?-?-?-?-?-?- Negative 150 -?-?-?-?-?-?-?-?-?-?--?-?- Sm- no vb lof go od fm no regular ctx 04/14/24 -?-?-?-?-?-?-?-?-?-?-?-?- 20w 6d 224 lb 2 oz (+2 lb 2 oz) 114/71 Negative -?-?-?-?-?-?-?-?-?-?-?-?- Negative 148 -?-?-?-?-?-?-?-?-?-?-?-?- JV- no complaint s. Just confused if needs growth scans q 4 weeks for marginal cord insertion. JV- no complaints. Just conf used if needs growth scans q 4 weeks for marginal cord insertion.message out to MFM to know the answer. will call her soon. 05/12/24 -?-?-?-?-?-?-?-?-?-?-?-?- 24w 6d 226 lb 2 oz (+4 lb 2 oz) 101/62 Negative -?-?-?-?-?-?-?-?-?-?-?-?- Negative -?-?-?-?-?-?-?-?-?-?-?-?- JV- no complaint s today + FM. plan for glucola today. 06/03/24 -?-?-?-?-?-?-?-?-?-?-?-?- 28w 0d 228 lb 8 oz (+6 lb 8 oz) 117/75 Negative -?-?-?-?-?-?-?-?-?-?-?-?- Negative 140 29 -?-?-?-?-?-?-?-?-?-?-?-?- JV- glucola done today. + FM. Wants flu shot today. 06/17/24 -?-?-?--?-?-?-?-?-?-?-?-?- 30w 0d 230 lb 4 oz (+8 lb 4 oz) 126/79 Negative -?-?-?-?-?-?-?-?-?-?-?-?- Negative 130 30 -?-?-?-?-?-?-?-?-?-?-?-?- KW- no vb/lof/ct x. good fm. Planning on donating cord blood. 07/01/24 -?-?-?-?-?-?-?-?-?-?-?-?- 32w 0d 233 lb (+11 lb) 107/72 Negative -?-?-?-?-?-?-?-?-?-?-?-?- Negative 130 33 -?-?-?-?-?-?-?-?-?-?-?-?- KW- work in for JV. no vb/lof/ctx. good fm. no concerns today. 07/11/24 -?-?-?-?-?-?-?-?-?-?-?-?- 33w 3d 231 lb 2 oz (+9 lb 2 oz) 134/82 Negative -?-?-?-?-?-?-?-?-?-?-?-?- Negative 130 34 -?-?-?-?-?-?-?-?-?-?-?-?- KW- no vb/lof/ct x. good fm. sick last week. has had itching on soles of feet and palms of hands. she is concerned for cholestasis-labs ordered. KW- no vb/lof/ctx. good fm. sick last week. has had itching on soles of feet and palms of hands for the last 2 nights. she is concerned for cholestasis-labs ordered. is relieved with Benadryl cream when she uses it. 07/28/24 -?-?-?-?-?-?-?-?-?-?-?-?- 35w 6d 235 lb 2 oz (+13 lb 2 oz) 117/68 Negative -?-?-?-?-?-?-?-?-?-?-?-?- Negative 135 36 Cephalic 2 -?-?-?-?-?-?-?-?-?-?-?-?- SM- no vb lof go od fm no regular ctx no significant ctx SM- no vb lof good fm no reg ular ctx gbs collected planning mfm teleheath visit next thursday and cbc cmp today ACOG First Trimester First Trimester: Desire for , Alcohol, Tobacco Cessation, Illicit/Recreational Drug/Substance Use, Intimate Partner Violence, Barriers to care, Unstable Housing, Communication Barriers, Environmental/Work Hazards, Anticipated Course of Care, Toxoplasmosis Precations, Use of Any med ications, Sexual activity, Exercise, Dental Care, Sauna/Hot tub use, Seat Belt use, Childbirth classes/Hospital facilities, Travel, Indications for Ultrasound and Screening for Aneuploidy; Discussed Second Trimester Second Trimester: Signs and Symptoms of Labor, Selecting a care provider, Reproductive Life Planning & Contreception, Care Planning, Depression/Anxiety and Intimate Partner Violence; Discussed Tobacco Cessation Third Trimester Third Trimester: Pain Management Plans, Labor support person(s), Immediate Larc, Movement Monitoring, Signs and Symptoms of Preeclampsia and Education Results POC Urinalysis 2 Dip (Clinic) Office Urine Glucose Negative Last Edit by Dina Kirk on 07/28/24 13:18 Office Urine Protein Negative Last Edit by Dina Kirk on 07/28/24 13:18 Coding Level of Care Code OB Routine Diagnoses Cholestasis during O26.649 Pruritus of O99.719; L29.9 Marginal insertion of umbilical cord affecting management of mother O43.199 Abnormal genetic test during O28.5 Back pain M54.9 Supervision of high-risk O09.90 Obesity affecting O99.210 35 weeks gestation of Z3A.35 Weeks of gestation: 35 weeks Family hx of colon cancer Z80.0 Assessment and Plan Assessment and Plan (1) Cholestasis during : Status: Acute Comment: twice weekly BPPs, weekly labs, consult with MFM per KW. MFM said unclear diagnosis- await telehealth visit to determine deliveyr timing (2) Pruritus of : Status: Acute Comment: elevated AST. cbc nl and bile acids 7.7. MFM consult (3) Marginal insertion of umbilical cord affecting management of mother: Status: Acute Comment: per mfm, NO q 4 week scans needed (4) Abnormal genetic test during : Status: Acute Comment: high risk low fraction 1:17 for triploidy, tri18 tri 13. patient requests repeat NIPT low risk,and MFM referral for NT screen possible CVS eventually (5) Back pain: Status: Acute (6) Supervision of high-risk : Status: Acute Comment: PRR, , SOLANGE 08/26/24, boy, OLY Das, Luis (7) Obesity affecting : Status: Acute Comment: [id number] (8) : Status: Acute Qualifiers: Weeks of gestation: 35 weeks Qualified Code(s): Z3A.35 - 35 weeks gestation of Comment: NIPT low risk. nl NT screen, nl anatomy, nl GCT (9) Family hx of colon cancer: Status: Acute Comment: Father 50 yo Survivor Orders: Orders POC Urinalysis 2 Dip (Clinic) Today Plan Details Goals & Barriers: Goals Decrease pain Decrease spasm Improve ROM 07/28/24 1358 ana maría SHARIF> Date _ Katie Parekh MD Cosigner Signature: Date (if applicable) CC: ~ [facility]05-22-2025 Radiology Diagnostic study note [facility] Imaging Services [address], [place] [id number] Biophysical Prof W/O Non Stres MR#: [id number] Acct: [id number] Name: ORLY RAY Rep #: [id number] : 1990 F 34 From: Monalisa Baptiste MD PCP: Care Physician,No Primary Status: REG CLI Study:Biophysical Prof W/O Non Stres Date of Exam: 07/20/24 Exam# [id number] Ordering Dr: Rekha Ayala CNM PROCEDURE: BIOPHYSICAL PROF W/O NON STRES 07/20/2024 REASON FOR EXAM: WELL BEING TECHNIQUE: Transabdominal OB ultrasound for biophysical profile COMPARISON: None available FINDINGS Single live intrauterine heart tones 141 beats per minute. Presentation is cephalic. ANN MARIE 11.9 cm, largest fluid pocket 7.2 x 6 0.0 cm Estimated age by LMP 35 weeks and 3 days, SOLANGE 08/26/2024 Grade 1 posterior placenta appears within limits. Not low-lying breathing movements: 2/2 Gross body movements: 2/2 Tone: 2/2 Amniotic fluid volume: 2/2 Total: 10/07 US/Biophysical Prof W/O Non Stres IMPRESSION: BIOPHYSICAL PROFILE SCORE 10/07. Single live intrauterine as above. Reading Location: [id number] CC: DANIA Ayala; No Primary Care Physician ~ Farrowing Manager: Signed [facility]05-16-[facility] Referring Provider Rekha Ayala, DANIA [address] [facility] [address] [place] [address] ASSESSMENT AND RECOMMENDATIONS Possible Cholestasis of Patient was feeling sick about 10 days ago (around the weekend), and had darker urine. Patient thought she was dehydrated. About 5 days ago had onset of itching, first on the feet. She is noting it on chest and arms, feet -- all over. Palms of the hands as well. The itching is better after ursodiol, worsens when close to next dose. Currently on ursodiol 300 mg BID due to presumptive diagnosis of cholestasis of . Briefly, intrahepatic cholestasis of (ICP) is a condition characterized by maternal pruritus and abnormal liver function. It is considered a diagnosis of exclusion, but is suspected when women present with intense pruritus in the setting of either elevated bile acids and/or transaminases. A bile acid level >10 micromol/L is the most specific test for ICP, but elevated AST/ALT may precede this finding. In this case, patient does not quite meet the criteria by bile acid level but she is noted to have elevated LFTs. Though she does not meet classic criteria, it is possible that her bile acid levels just have not elevated to the point of meeting typical criteria of the diagnosis. Nonetheless, I think based on her clinical findings it is reasonable to give her a presumptive diagnosis of intrahepatic cholestasis of . Unfortunately, the exact causative mechanism for ICP is not known. There is some associated with increased maternal and complications. Recent studies suggest that women with ICP have an increased risk of gestational diabetes and preeclampsia. Women with ICP may also have an increased risk of future hepatobiliary disease. Pregnancies complicated by cholestasis also are associated with an increased risk of , meconium stained amniotic fluid, respiratory distress syndrome and . There is likely a correlation between bile acid level and the risk of adverse outcomes. Elevated bile acid levels have been associated with a higher risk of stillbirth. Those at highest risk include elevated > 100 mmol/L, though there is some elevated over baseline for values greater than >40 micomol/L. Though in the setting of ICP is thought to be a sudden event, twice weekly testing should be initiated following the diagnosis. The patient should also be scheduled for serial growth ultrasounds. Ursodeoxycholic acid is the most effective treatment for ICP. It has been shown to significantly improve maternal pruritus and may lead to an improvement in laboratory tests. Some experts suggest that Ursodeoxycholic acid may also improve outcomes, but this has not yet been definitively proven. This therapy has already been initiated. For this specific patient, delivery is could be completed as early as 36-37 weeks gestation with this diagnosis. Final recommendation for gestational age delivery will be based on her total bile acid level and local practice recommendation. I have discussed with the patient that her liver function tests are elevated, but reasonably within the expected range for this disease process. 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 I have sent off some labs today for evaluation of other etiologies. It is likely these are not going to be regulatory. Laboratory testing of bile acids and LFTs should be performed at her visit to ensure that she does not have persistent liver disease. Overall recommendations -- Laboratory testing as ordered -- Repeat total bile acids -- Continue ursodiol as prescribed -- Twice-weekly testing -- Delivery recommendation based on total bile acid level and local practice convention is reasonable -- Mode of delivery per the usual obstetrical indications Oswaldo RENEEA FACOG Maternal- Medicine SUBJECTIVE Orly Ray is a 34 y.o. who presents at 34w0d for discussion of intrahepatic cholestasis of . She presents without other complaints. She otherwise denies LOF/CTX/VB. She is without preE complaints. We performed a detailed ROS including screening for general, gastrointestinal, respiratory, cardiac, renal, urological symptoms and the patient has no pertinent positives on screen. OB History Para Term AB Living 2 1 1 1 SAB IAB Ectopic Multiple Live Births 1 # Outcome Date GA Lbr Ifeanyi/2nd Weight Sex Type Anes PTL Lv 2 Current 1 Term 06/08/22 39w0d 3.657 kg F Vag-Spont UMU Problem List[1] History reviewed. No pertinent past medical history. Past Surgical History: Procedure Laterality Date WISDOM TOOTH EXTRACTION (more content not included)...[facility] 04-14-2024 Evaluation note* Diagnosis Onset Date Resolution Status Admit Date Abnormal genetic test during acute April 14 025 1:28pm Back pain acute April 14, 2024 1:28pm Family hx of colon cancer acute April 14, 2024 1:28pm Marginal insertion of umbilical cord affecting management of mother acute April 142024 1:28pm Obesity affecting acute April 14, 2024 1:28pm acute April 14, 2024 1:28pm Supervision of high-risk acute April 14 1:28pm Abnormal genetic test during acute May 12, 2024 12:46pm Back pain acute May 12 12:46pm Family hx of colon cancer acute May 12, 2024 12:46pm Marginal insertion of umbilical cord affecting management of mother acute May 12, 2024 12:46pm Obesity affecting acute May 12, 2024 12:46pm acute May 12 12:46pm Supervision of high-risk acute May 12, 2024 12:46pm Abnormal genetic test during acute June 03, 2024 11:22am Back pain acute June 03 11:22am Family hx of colon cancer acute June 03, 2024 11:22am Marginal insertion of umbilical cord affecting management of mother acute June 03, 2024 11:22am Obesity affecting acute June 03, 2024 11:22am acute June 03 11:22am Supervision of high-risk acute June 03, 2024 11:22am Abnormal genetic test during acute June 17, 2024 12:58pm Back pain acute June 17 12:58pm Family hx of colon cancer acute June 17, 2024 12:58pm Marginal insertion of umbilical cord affecting management of mother acute June 17, 2024 12:58pm Obesity affecting acute June 17, 2024 12:58pm acute June 17 12:58pm Supervision of high-risk acute June 17, 2024 12:58pm Abnormal genetic test during acute July 01, 2024 1: 46pm Back pain acute July 01, 2024 1:46pm Family hx of colon cancer acute July 01, 2024 1:46pm Marginal insertion of umbilical cord affecting management of mother acute July 01 1:46pm Obesity affecting acute July 01, 2024 1:46pm acute July 01, 2024 1:46pm Supervision of high-risk acute July 01, 2024 1: 46pm Abnormal genetic test during acute July 11, 2024 1 1:17am Back pain acute July 11, 2024 11:17am Family hx of colon cancer acute July 11, 2024 11:17am Marginal insertion of umbilical cord affecting management of mother acute July 11 025 11:17am Obesity affecting acute July 11, 2024 11:17am acute July 11, 2024 11:17am Supervision of high-risk acute July 11, 2024 1 1:17am [facility] Work Phone: 1(106) 776-461002-13-2025 Evaluation note* Diagnosis Onset Date Resolution Status Admit Date Abnormal genetic test during acute April 14, 025 1:28pm Back pain acute April 14, 2024 1:28pm Family hx of colon cancer acute April 14, 2024 1:28pm Marginal insertion of umbilical cord affecting management of mother acute April 142024 1:28pm Obesity affecting acute April 14, 2024 1:28pm acute April 14, 2024 1:28pm Supervision of high-risk acute April 14 025 1:28pm Abnormal genetic test during acute May 12, 2024 12:46pm Back pain acute May 12 12:46pm Family hx of colon cancer acute May 12, 2024 12:46pm Marginal insertion of umbilical cord affecting management of mother acute May 12, 2024 12:46pm Obesity affecting acute May 12, 2024 12:46pm acute May 12 12:46pm Supervision of high-risk acute May 12, 2024 12:46pm Abnormal genetic test during acute June 03, 2024 11:22am Back pain acute June 03 11:22am Family hx of colon cancer acute June 03, 2024 11:22am Marginal insertion of umbilical cord affecting management of mother acute June 03, 2024 11:22am Obesity affecting acute June 03, 2024 11:22am acute June 03 11:22am Supervision of high-risk acute June 03, 2024 11:22am Abnormal genetic test during acute June 17, 2024 12:58pm Back pain acute June 17 12:58pm Family hx of colon cancer acute June 17, 2024 12:58pm Marginal insertion of umbilical cord affecting management of mother acute June 17, 2024 12:58pm Obesity affecting acute June 17, 2024 12:58pm acute June 17 12:58pm Supervision of high-risk acute June 17, 2024 12:58pm Abnormal genetic test during acute July 01, 2024 1: 46pm Back pain acute July 01, 2024 1:46pm Family hx of colon cancer acute July 01, 2024 1:46pm Marginal insertion of umbilical cord affecting management of mother acute July 01 1:46pm Obesity affecting acute July 01, 2024 1:46pm acute July 01, 2024 1:46pm Supervision of high-risk acute July 01, 2024 1: 46pm Abnormal genetic test during acute July 11, 2024 1 1:17am Back pain acute July 11, 2024 11:17am Family hx of colon cancer acute July 11, 2024 11:17am Marginal insertion of umbilical cord affecting management of mother acute July 11, 2 025 11:17am Obesity affecting acute July 11, 2024 11:17am acute July 11, 2024 11:17am Supervision of high-risk acute July 11, 2024 1 1:17am Abnormal genetic test during acute July 28, 2024 1 :06pm Back pain acute July 28, 2024 1:06pm Cholestasis during acute July 28, 2024 1:06pm Family hx of colon cancer acute July 28, 2024 1:06pm Marginal insertion of umbilical cord affecting management of mother acute July 28, 2 025 1:06pm Obesity affecting acute July 28, 2024 1:06pm acute July 28, 2024 1:06pm Pruritus of acute July 28, 2024 1:06pm Supervision of high-risk acute July 28, 2024 1 :06pm [facility] Work Phone: 1([phone]) 464-595701-16-2025 Evaluation note* Diagnosis Onset Date Resolution Status Admit Date Abnormal genetic test during acute March 17 1:43pm Back pain acute March 17, 2024 1:43pm Family hx of colon cancer acute March 17, 2024 1:43pm Obesity affecting acute March 17, 2024 1:43pm acute March 17, 2024 1:43pm Supervision of high-risk acute March 17 1:43pm Abnormal genetic test during acute April 14, 025 1:28pm Back pain acute April 14, 2024 1:28pm Family hx of colon cancer acute April 14, 2024 1:28pm Marginal insertion of umbilical cord affecting management of mother acute April 142024 1:28pm Obesity affecting acute April 14, 2024 1:28pm acute April 14, 2024 1:28pm Supervision of high-risk acute April 14, 2 025 1:28pm Abnormal genetic test during acute May 12, 2024 12:46pm Back pain acute May 12 12:46pm Family hx of colon cancer acute May 12, 2024 12:46pm Marginal insertion of umbilical cord affecting management of mother acute May 12, 2024 12:46pm Obesity affecting acute May 12, 2024 12:46pm acute May 12 12:46pm Supervision of high-risk acute May 12, 2024 12:46pm Abnormal genetic test during acute June 03, 2024 11:22am Back pain acute June 03 11:22am Family hx of colon cancer acute June 03, 2024 11:22am Marginal insertion of umbilical cord affecting management of mother acute June 03, 2024 11:22am Obesity affecting acute June 03, 2024 11:22am acute June 03 11:22am Supervision of high-risk acute June 03, 2024 11:22am Abnormal genetic test during acute June 17, 2024 12:58pm Back pain acute June 17 12:58pm Family hx of colon cancer acute June 17, 2024 12:58pm Marginal insertion of umbilical cord affecting management of mother acute June 17, 2024 12:58pm Obesity affecting acute June 17, 2024 12:58pm acute June 17 12:58pm Supervision of high-risk acute June 17, 2024 12:58pm Abnormal genetic test during acute July 01, 2024 1: 46pm Back pain acute July 01, 2024 1:46pm Family hx of colon cancer acute July 01, 2024 1:46pm Marginal insertion of umbilical cord affecting management of mother acute July 01 1:46pm Obesity affecting acute July 01, 2024 1:46pm acute July 01, 2024 1:46pm Supervision of high-risk acute July 01, 2024 1: 46pm Abnormal genetic test during acute July 11, 2024 1 1:17am Back pain acute July 11, 2024 11:17am Family hx of colon cancer acute July 11, 2024 11:17am Marginal insertion of umbilical cord affecting management of mother acute July 11, 2 025 11:17am Obesity affecting acute July 11, 2024 11:17am acute July 11, 2024 11:17am Supervision of high-risk acute July 11, 2024 1 1:17am [facility] Work Phone: 1(486) 445-315212-18-2024 Evaluation note* Diagnosis Onset Date Resolution Status Admit Date Abnormal genetic test during acute February 16, 2 024 1:39pm Back pain acute February 17, 2024 1:39pm Family hx of colon cancer acute February 17, 2024 1:39pm Obesity affecting acute February 17, 2024 1:39pm acute February 17, 2024 1:39pm Supervision of high-risk acute February 16, 2 024 1:39pm Abnormal genetic test during acute March 17 1:43pm Back pain acute March 17, 2024 1:43pm Family hx of colon cancer acute March 17, 2024 1:43pm Obesity affecting acute March 17, 2024 1:43pm acute March 17, 2024 1:43pm Supervision of high-risk acute March 17 1:43pm Abnormal genetic test during acute April 14, 2 025 1:28pm Back pain acute April 14, 2024 1:28pm Family hx of colon cancer acute April 14, 2024 1:28pm Marginal insertion of umbilical cord affecting management of mother acute April 142024 1:28pm Obesity affecting acute April 14, 2024 1:28pm acute April 14, 2024 1:28pm Supervision of high-risk acute April 14, 1:28pm Abnormal genetic test during acute May 12, 2024 12:46pm Back pain acute May 12 12:46pm Family hx of colon cancer acute May 12, 2024 12:46pm Marginal insertion of umbilical cord affecting management of mother acute May 12, 2024 12:46pm Obesity affecting acute May 12, 2024 12:46pm acute May 12 12:46pm Supervision of high-risk acute May 12, 2024 12:46pm Abnormal genetic test during acute June 03, 2024 11:22am Back pain acute June 03 11:22am Family hx of colon cancer acute June 03, 2024 11:22am Marginal insertion of umbilical cord affecting management of mother acute June 03, 2024 11:22am Obesity affecting acute June 03, 2024 11:22am acute June 03 11:22am Supervision of high-risk acute June 03, 2024 11:22am [facility] Work Phone: [phone] History of Present illness Narrative* Santo Wang MD - 12/25/2022 11:00 AM EDT Subjective Patient ID: Orly Ray is a 32 y.o. female who presents for Joint Pain and Itching. HPI 32 yo female She reports joint pain and itchy skin. The patient reports shoulder, elbows, and hand joint for 6 months, her pain is stable. Knee pain for 5-8 years, x-rays showed nothing She reports swelling in her hand joints Her AM stiffness lasts around 30 min She denies any skin rashes, oral ulcer, Raynaud, chest pain, dry eyes, dry mouth She reports hair loss started 3 months ago after delivery. She did not have any problems during her , no h/o , miscarriage She visited [place], went outside, and her recent Lyme test came back negative. She denies any thyroid disease Family h/o did not reveal any SLE, rheumatic diseases, ROS Joint pain in hands: negative Joint swelling: negative Morning stiffness and duration: negative Excellence Leader strength: normal Oral ulcer: negative Genital ulcer: negative Raynaud phenomenon: negative Chest pain/dyspnea: negative Low back pain: negative Visual problem: negative Dry eyes/dry mouth: negative Skin rash/scaling/psoriasis: negative Objective PEXAM VS reviewed, WNL General: Alert, no distress HEENT: Normocephalic/atraumatic, No alopecia. PERRLA. Sclera white, conjunctiva pink, no malar rash. no oral or nasal ulcer. Oral cavity pink and moist, no erythema or exudate, dentition good. Neck: supple Respiratory: CTA B, no adventitious breath sounds Cardiac: RRR, no murmurs, carotid, or bruits Abdominal: symmetrical, soft, non-tender, non-distended, normoactive BSx4 quadrants, no CVA tenderness or suprapubic tenderness MSK: Joints of upper and lower extremities were assessed for synovitis and ROM. No active synovitis Extremities: no clubbing, no cyanosis, no edema Skin: Skin warm and moist. Neuro: non-focal, Strength 5/5 throughout. Normal gait. 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 Her pain started many years ago but got worse recently. She had a delivery 6 months ago, no -related complications. Her PExam did not reveal any arthritis, it showed only some tender muscle points. Also, PExam did not show any skin rashes or psoriasis lesions. I think she does not have lupus or CTDs. She has FM. Her THO, dsDNA, ESR, CRP, RF, CCP negative -will see her C3, C4 and urine -Pain Management referral -Dermatology referral for itching documented in this [facility] Work Phone: 1(496) 165-333010-11-2023 History of Present illness Narrative* Angelina Gusman MD - 12/10/2022 11:00 AM EDT Subjective Patient ID: Orly Ray is a 32 y.o. female who presents for Annual Exam. HPI Had pap in June, had child in May, no issues Emotionally doing OK, sleeping OK, nursing Having pain in multiple joints, itchy on scalp, no dry mouth or eyes, some AM stiffness, some jointswelling (dre in fingers), + chronic fatigue, + restful sleep in AM, some pain improvement with activity, worse at rest Mother with joint pain (osteoarthritis) Uses ibuprofen with some help Occ headaches, taking OCP No stomach or bowel issues Exposure to tick borne illnesses in [place] Review of Systems Constitutional: Positive for fatigue. Negative for activity change, appetite change and unexpected weight change. HENT: Negative for ear pain, nosebleeds, rhinorrhea, sneezing and trouble swallowing. Respiratory: Negative for cough, shortness of breath and wheezing. Cardiovascular: Negative for chest pain, palpitations and leg swelling. Gastrointestinal: Negative for abdominal distention, abdominal pain, constipation, diarrhea, nauseaand vomiting. Genitourinary: Negative for difficulty urinating. Musculoskeletal: Positive for arthralgias. Negative for gait problem. Skin: Negative for rash. Neurological: Negative for dizziness, light-headedness, numbness and headaches. Hematological: Negative for adenopathy. Psychiatric/Behavioral: Negative for behavioral problems, decreased concentration, dysphoric mood and sleep disturbance. The patient is not nervous/anxious. All other systems reviewed and are negative. Objective BP 120/70 Pulse 72 Ht 1.651 m (5' 5) Wt 103 kg (227 lb 14.4 oz) SpO2 97% BMI 37.92 kg/m Physical Exam Vitals and nursing note reviewed. Constitutional: General: She is not in acute distress. Appearance: Normal appearance. She is not toxic-appearing. HENT: Head: Normocephalic and atraumatic. Right Ear: Tympanic membrane, ear canal and external ear normal. Left Ear: Tympanic membrane, ear canal and external ear normal. Nose: Nose normal. Mouth/Throat: Mouth: Mucous membranes are moist. Pharynx: Oropharynx is clear. Eyes: Extraocular Movements: Extraocular movements intact. Conjunctiva/sclera: Conjunctivae normal. Pupils: Pupils are equal, round, and reactive to light. Cardiovascular: Rate and Rhythm: Normal rate and regular rhythm. Pulses: Normal pulses. Heart sounds: Normal heart sounds. Pulmonary: Effort: Pulmonary effort is normal. Breath sounds: Normal breath sounds. Abdominal: General: Abdomen is flat. Bowel sounds are normal. Palpations: Abdomen is soft. Musculoskeletal: General: No swelling, tenderness, deformity or signs of injury. Normal range of motion. Cervical back: Normal range of motion and neck supple. Skin: General: Skin is warm and dry. Capillary Refill: Capillary refill takes less than 2 seconds. Neurological: General: No focal deficit present. Mental Status: She is alert and oriented to person, place, and time. Mental status is at baseline. Psychiatric: Mood and Affect: Mood normal. Behavior: Behavior normal. Assessment/Plan Problem List Items Addressed This Visit ICD-10-CM Fatigue R53.83 Relevant Orders CBC Rheumatoid Factor Citrulline Antibody, IgG Sedimentation Rate C-Reactive Protein ASAD with Reflex to THO Referral to Rheumatology Vitamin B12 Thyroid Stimulating Hormone Lyme Disease (Borrelia burgdorferi), PCR Comprehensive Metabolic Panel Other Visit Diagnoses Codes Arthralgia, unspecified joint - Primary M25.50 Check labs, consult with rheumatology Relevant Orders CBC Rheumatoid Factor Citrulline Antibody, IgG Sedimentation Rate C-Reactive Protein ASAD with Reflex to THO Referral to Rheumatology Vitamin B12 Thyroid Stimulating Hormone Lyme Disease (Borrelia burgdorferi), PCR Comprehensive Metabolic Panel [facility] Work Phone: 1(890) [phone] Discharge summary Author Rekha Ayala [facility] June 10, 2022 7:30am Note Date/Time June 10, 2022 7:3 0am [facility] Medical Records Department [address] [place] [id number] Instructions for Home/Discharge Instructions 06/10/22 0730 MR#: [id number] Acct: [id number] Name: ORLY RAY Rep #:[id number] : 1990 32 From: Rekah Ayala CNM PCP: Dr. Marc Gusman MD Status:AD M IN Discharge Instructions Diet Discharge Diet: No restrictions Activity May resume sexual activity in: 6-8 weeks (after seen by OB provider) Weight Bearing Status: Full weight bearing Dressing / Incision Call your doctor if you observe: Fever of 101 or Higher, Inability to urinate, Using more than 1 pad per hour (for more than 2 hours in a row or more), Shortness of breath, Dizziness, Chest pain and - (headache not controlled with tylenol, change in vision) Follow Up Care Test Results: Test results from this visit will be discussed in further detail at your follow- up appointment, if applicable. Discharge Plan Admission Admit Date/Time: 06/08/22 06:53 Attending Provider: Katie Parekh Primary Care Provider: Marc Gusman Discharge Orders/Prescriptions Prescriptions: No Action PNV-DHA 27 mg iron-1 mg -300 mg capsule PO Referrals / Follow Up: Marc Gusman MD [Primary Care Provider] - Disposition Disposition (needs filled in before D/C Order can be placed): Home, Self Care 06/10/22 0730<Electronically signed by Rekha Ayala CNM>Rekha Ayala CNM CC: Dr. Marc Gusman MD ~ Signed [facility] Work Phone: 1(761) 191-473204-11-2023 Progress note Author [facility] June 10, 2022 7:30am Note Date/Time June 10, 2022 7:3 0am [facility] Medical Records Department [address] [place] [address] Progress Note - OBGYN 06/10/22727 MR#: [id number] Acct: [id number] Name: ORLY RAY Rep #:[id number] : 1990 32 From: Rekha Ayala CNM PCP: Dr. Marc Gusman MD Status:AD M IN Location: RQ100-9 Subjective Subjective Patient doing well without complaints. Tolerating PO. Ambulating and voiding without difficulty. Feeding well. Denies chest pain, shortness of breath, calf pain/swelling, fevers, chills, lightheadedness. Objective Data Objective Data Vital Signs: Vital Signs Temp Pulse Resp BP Pulse Ox O2 Del Method 97.9 F 97 16 112/71 97 Room Air 06/10/22 01:25 06/10/22 01:25 06/10/22 01:25 06/10/22 01:25 06/10/22 01:25 06/10/22 01:25 Oxygen Delivery Method Room Air Weight: 245 lb 6.4 oz Body Mass Index (BMI) 39.6 Intake & Output: Intake and Output for Last 24 Hours 06/08/22 06/09/22 06/10/22 23:59 23:59 23:59 Intake Total 4043.69 / 4043.69 1437.98 / 1437.98 Output Total 250 / 250 2300 / 2300 Balance 3793.69 / 3793.69 -862.02 / -862.02 Lab / Micro Data Attestation: I reviewed the patient's lab results. Result Diagrams: 06/08/22 07:00 ROS Constitutional Constitutional: Reports systems reviewed and no addt'l complaints, except as documented; Denies anorexia or headache(s) Cardiovascular Cardiovascular: Reports systems reviewed and no addt'l complaints, except as documented; Denies dizziness, dyspnea, nausea or tachypnea Respiratory/Chest Respiratory/Chest: Reports systems reviewed and no addt'l complaints, except as documented; Denies cough, dyspnea, shortness of breath at rest or tachypnea Gastrointestinal Gastrointestinal: Reports systems reviewed and no addt'l complaints, except as documented; Denies abdominal pain, constipation or nausea Genitourinary Genitourinary: Reports systems reviewed and no addt'l complaints, except as documented; Denies burning urination, difficulty urinating, dysuria, urinary frequency or urinary incontinence Musculoskeletal Musculoskeletal: Reports systems reviewed and no addt'l complaints, except as documented Integumentary Integumentary: Reports systems reviewed and no addt'l complaints, except as documented Neurologic Neurologic: Reports systems reviewed and no addt'l complaints, except as documented; Denies abnormal speech, dizziness or headache(s) Psychiatric Psychiatric: Reports systems reviewed and no addt'l complaints, except as documented Endocrine Endocrinology: Reports systems reviewed and no addt'l complaints, except as documented Hematologic/Lymphatic Hematologic/Lymphatic: Reports systems reviewed and no addt'l complaints, exceptas documented Physical Exam Const alert, oriented x3 and no apparent distress Neck full ROM Chest inspection of chest normal and inspection of breasts normal Nipple/Areola: nipples/areola normal Resp normal respiratory effort, normal air movement and no retractions Effort and Inspection: able to speak in complete sentences and symmetric chest movement GI soft to palpation Bladder / Kidney Exam: bladder normal to palpation Uterus Palpation: uterus fundus firm (U1) Extremity normal to inspection and full ROM Psych mental status grossly normal, thought process normal and cooperative Assessment & Plan (1) Vaginal delivery: COMMENT: SM IAL girl Pippa 40 PLAN: s/p PPD # 1 1. routine post delivery care 2. breast feeding- support given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 Family hx of colon cancer Supervision of normal first Family hx of colon cancer Supervision of normal first Back pain Segmental and somatic dysfunction of cervical region Segmental and somatic dysfunction of lumbar region Segmental and somatic dysfunction of thoracic region Back pain Family hx of colon cancer Obesity affecting Segmental and somatic dysfunction of cervical region Segmental and somatic dysfunction of lumbar region Segmental and somatic dysfunction of thoracic region Supervision of normal first Back pain Family hx of colon cancer Obesity affecting Segmental and somatic dysfunction of cervical region Segmental and somatic dysfunction of lumbar region Segmental and somatic dysfunction of thoracic region Supervision of normal first Back pain Family hx of colon cancer Obesity affecting Positive GBS test Segmental and somatic dysfunction of cervical region Segmental and somatic dysfunction of lumbar region Segmental and somatic dysfunction of thoracic region Supervision of normal first Chief Complaint adjustment adjustment 27 WK OB 30 WK OB 32 WK OB ADJUSTMENT 34 WK OB 36 WK OB 37 WK OB 38 WK OB 39 WK OB VAG labor VAG Reason for Visit Back pain Segmental and somatic dysfunction of cervical region Segmental and somatic dysfunction of lumbar region Segmental and somatic dysfunction of thoracic region Back pain Segmental and somatic dysfunction of cervical region Segmental and somatic dysfunction of lumbar region Segmental and somatic dysfunction of thoracic region Family hx of colon cancer Supervision of normal first Family hx of colon cancer Supervision of normal first Back pain Segmental and somatic dysfunction of cervical region Segmental and somatic dysfunction of lumbar region Segmental and somatic dysfunction of thoracic region Family hx of colon cancer Back pain Obesity affecting Segmental and somatic dysfunction of cervical region Segmental and somatic dysfunction of lumbar region Segmental and somatic dysfunction of thoracic region Supervision of normal first Family hx of colon cancer Back pain Obesity affecting Segmental and somatic dysfunction of cervical region Segmental and somatic dysfunction of lumbar region Segmental and somatic dysfunction of thoracic region Supervision of normal first Family hx of colon cancer Back pain Obesity affecting Positive GBS test Segmental and somatic dysfunction of cervical region Segmental and somatic dysfunction of lumbar region Segmental and somatic dysfunction of thoracic region Supervision of normal first Family hx of colon cancer Positive GBS test Supervision of normal first Family hx of colon cancer Back pain Obesity affecting Positive GBS test Segmental and somatic dysfunction of cervical region Segmental and somatic dysfunction of lumbar region Segmental and somatic dysfunction of thoracic region Supervision of normal first Family hx of colon cancer Obesity affecting Positive GBS test SROM (spontaneous rupture of membranes) Supervision of normal first Chief Complaint 30 WK OB 32 WK OB ADJUSTMENT 34 WK OB 36 WK OB 37 WK OB 38 WK OB 39 WK OB VAG labor VAG first time assessment 6 WK PP Reason for Visit Family hx of colon c ancer Supervision of normal first Back pain Segmental and somatic dysfunction of cervical region Segmental and somatic dysfunction of lumbar region Segmental and somatic dysfunction of thoracic region Family hx of colon cancer Back pain Obesity affecting Segmental and somatic dysfunction of cervical region Segmental and somatic dysfunction of lumbar region Segmental and somatic dysfunction of thoracic region Supervision of normal first Family hx of colon cancer Back pain Obesity affecting Segmental and somatic dysfunction of cervical region Segmental and somatic dysfunction of lumbar region Segmental and somatic dysfunction of thoracic region Supervision of normal first Family hx of colon cancer Back pain Obesity affecting Positive GBS test Segmental and somatic dysfunction of cervical region Segmental and somatic dysfunction of lumbar region Segmental and somatic dysfunction of thoracic region Supervision of normal first Family hx of colon cancer Positive GBS test Supervision of normal first Family hx of colon cancer Back pain Obesity affecting Positive GBS test Segmental and somatic dysfunction of cervical region Segmental and somatic dysfunction of lumbar region Segmental and somatic dysfunction of thoracic region Supervision of normal first Family hx of colon cancer Obesity affecting Positive GBS test SROM (spontaneous rupture of membranes) Supervision of normal first nipple pain Care and examination of lactating mother Engorgement of breast associated with childbirth, care and examination Chief Complaint Admit Date 13 wk OB February 17, 2024 1:39pm 17 wk ob March 17, 2024 1 :43pm 21 wk ob April 14, 2024 1:28pm 25 wk ob May 12, 2024 12: 46pm 28wk ob/ glucose June 03, 2024 11:2 2am Reason for Visit Admit Date Abnormal genetic test during D ecember 2023 1:39pm Back pain February 17, 2024 1:39pm Family hx of colon cancer February 17, 2024 1:39pm Obesity affecting January 1:39pm February 17, 2024 1:39pm Supervision of high-risk Decem gisela 2023 1:39pm Abnormal genetic test during J anuary 2024 1:43pm Back pain March 17, 2024 1 :43pm Family hx of colon cancer March 17, 2024 1:43pm Obesity affecting March 1:43pm March 17, 2024 1 :43pm Supervision of high-risk Janua ry 2024 1:43pm Abnormal genetic test during F ebruary 2024 1:28pm Back pain April 14, 2024 1:28pm Family hx of colon cancer April 14, 2024 1:28pm Marginal insertion of umbili nicola cord affecting management of mother April 14, 2024 1:28pm Obesity affecting April 1:28pm April 14, 2024 1:28pm Supervision of high-risk Febru henrietta 2024 1:28pm Abnormal genetic test during M arch 2024 12:46pm Back pain May 12, 2024 12: 46pm Family hx of colon cancer May 12 12:46pm Marginal insertion of umbili nicola cord affecting management of mother May 12, 2024 12:46pm Obesity affecting May 12, 2024 12:46pm May 12, 2024 12: 46pm Supervision of high-risk May 12, 2024 12:46pm Abnormal genetic test during A pril 2024 11:22am Back pain June 03, 2024 11:2 2am Family hx of colon cancer June 03 11:22am Marginal insertion of umbili nicola cord affecting management of mother June 03, 2024 11:22am Obesity affecting June 03, 2 025 11:22am June 03, 2024 11:2 2am Supervision of high-risk June 03, 2024 11:22am Chief Complaint Admit Date 17 wk ob March 17, 2024 1 :43pm 21 wk ob April 14, 2024 1:28pm 25 wk ob May 12, 2024 12: 46pm 28wk ob/ glucose June 03, 2024 11:2 2am 30 wk ob June 17, 2024 12: 58pm 32wk ob July 01, 2024 1:46pm 34wk ob July 11, 2024 11:17 am Reason for Visit Admit Date Abnormal genetic test during J anuary 2024 1:43pm Back pain March 17, 2024 1 :43pm Family hx of colon cancer March 17, 2024 1:43pm Obesity affecting March 1:43pm March 17, 2024 1 :43pm Supervision of high-risk Janua ry 2024 1:43pm Abnormal genetic test during F ebruary 2024 1:28pm Back pain April 14, 2024 1:28pm Family hx of colon cancer April 14, 2024 1:28pm Marginal insertion of umbili nicola cord affecting management of mother April 14, 2024 1:28pm Obesity affecting April 1:28pm April 14, 2024 1:28pm Supervision of high-risk Febru henrietta 2024 1:28pm Abnormal genetic test during M arch 2024 12:46pm Back pain May 12, 2024 12: 46pm Family hx of colon cancer May 12 12:46pm Marginal insertion of umbili nicola cord affecting management of mother May 12, 2024 12:46pm Obesity affecting May 12, 2024 12:46pm May 12, 2024 12: 46pm Supervision of high-risk May 12, 2024 12:46pm Abnormal genetic test during A pril 2024 11:22am Back pain June 03, 2024 11:2 2am Family hx of colon cancer June 03 11:22am Marginal insertion of umbili nicola cord affecting management of mother June 03, 2024 11:22am Obesity affecting June 03, 11:22am June 03, 2024 11:2 2am Supervision of high-risk June 03, 2024 11:22am Abnormal genetic test during A pril 2024 12:58pm Back pain June 17, 2024 12: 58pm Family hx of colon cancer June 17 12:58pm Marginal insertion of umbili nicola cord affecting management of mother June 17, 2024 12:58pm Obesity affecting June 17, 2024 12:58pm June 17, 2024 12: 58pm Supervision of high-risk June 17, 2024 12:58pm Abnormal genetic test during M ay 2024 1:46pm Back pain July 01, 2024 1:46pm Family hx of colon cancer July 01, 2024 1:46pm Marginal insertion of umbili nicola cord affecting management of mother July 01, 2024 1:46pm Obesity affecting July 01 1:46pm July 01, 2024 1:46pm Supervision of high-risk July 012024 1:46pm Abnormal genetic test during M ay 2024 11:17am Back pain July 11, 2024 11:17 am Family hx of colon cancer July 11, 2024 11:17am Marginal insertion of umbili nicola cord affecting management of mother July 11, 2024 11:17am Obesity affecting July 11 11:17am July 11, 2024 11:17 am Supervision of high-risk June 302024 11:17am Chief Complaint Admit Date 21 wk ob April 14, 2024 1:28pm 25 wk ob May 12, 2024 12: 46pm 28wk ob/ glucose June 03, 2024 11:2 2am 30 wk ob June 17, 2024 12: 58pm 32wk ob July 01, 2024 1:46pm 34wk ob July 11, 2024 11:17 am PRURITUS July 20, 2024 5:57p m Reason for Visit Admit Date Abnormal genetic test during F ebruary 2024 1:28pm Back pain April 14, 2024 1:28pm Family hx of colon cancer April 14, 2024 1:28pm Marginal insertion of umbili nicola cord affecting management of mother April 14, 2024 1:28pm Obesity affecting April 1:28pm April 14, 2024 1:28pm Supervision of high-risk Febru henrietta 2024 1:28pm Abnormal genetic test during M arch 2024 12:46pm Back pain May 12, 2024 12: 46pm Family hx of colon cancer May 12 12:46pm Marginal insertion of umbili nicola cord affecting management of mother May 12, 2024 12:46pm Obesity affecting May 12, 2024 12:46pm May 12, 2024 12: 46pm Supervision of high-risk May 12, 2024 12:46pm Abnormal genetic test during A pril 2024 11:22am Back pain June 03, 2024 11:2 2am Family hx of colon cancer June 03 11:22am Marginal insertion of umbili nicola cord affecting management of mother June 03, 2024 11:22am Obesity affecting June 03 025 11:22am June 03, 2024 11:2 2am Supervision of high-risk June 03, 2024 11:22am Abnormal genetic test during A pril 2024 12:58pm Back pain June 17, 2024 12: 58pm Family hx of colon cancer June 17 12:58pm Marginal insertion of umbili nicola cord affecting management of mother June 17, 2024 12:58pm Obesity affecting June 17, 2024 12:58pm June 17, 2024 12: 58pm Supervision of high-risk June 17, 2024 12:58pm Abnormal genetic test during M ay 2024 1:46pm Back pain July 01, 2024 1:46pm Family hx of colon cancer July 01, 2024 1:46pm Marginal insertion of umbili nicola cord affecting management of mother July 01, 2024 1:46pm Obesity affecting July 01 1:46pm July 01, 2024 1:46pm Supervision of high-risk July 012024 1:46pm Abnormal genetic test during M ay 2024 11:17am Back pain July 11, 2024 11:17 am Family hx of colon cancer July 11, 2024 11:17am Marginal insertion of umbili nciola cord affecting management of mother July 11, 2024 11:17am Obesity affecting July 11 11:17am July 11, 2024 11:17 am Supervision of high-risk June 302024 11:17am Chief Complaint Admit Date 21 wk ob April 14, 2024 1:28pm 25 wk ob May 12, 2024 12: 46pm 28wk ob/ glucose June 03, 2024 11:2 2am 30 wk ob June 17, 2024 12: 58pm 32wk ob July 01, 2024 1:46pm 34wk ob July 11, 2024 11:17 am PRURITUS July 20, 2024 5:57p m 36wk ob July 28, 2024 1:06p m Reason for Visit Admit Date Abnormal genetic test during F ebruary 2024 1:28pm Back pain April 14, 2024 1:28pm Family hx of colon cancer April 14, 2024 1:28pm Marginal insertion of umbili nicola cord affecting management of mother April 14, 2024 1:28pm Obesity affecting April 1:28pm April 14, 2024 1:28pm Supervision of high-risk Febru henrietta 2024 1:28pm Abnormal genetic test during M arch 2024 12:46pm Back pain May 12, 2024 12: 46pm Family hx of colon cancer May 12 12:46pm Marginal insertion of umbili nicola cord affecting management of mother May 12, 2024 12:46pm Obesity affecting May 12, 2024 12:46pm May 12, 2024 12: 46pm Supervision of high-risk May 12, 2024 12:46pm Abnormal genetic test during A pril 2024 11:22am Back pain June 03, 2024 11:2 2am Family hx of colon cancer June 03 11:22am Marginal insertion of umbili nicola cord affecting management of mother June 03, 2024 11:22am Obesity affecting June 03, 025 11:22am June 03, 2024 11:2 2am Supervision of high-risk June 03, 2024 11:22am Abnormal genetic test during A pril 2024 12:58pm Back pain June 17, 2024 12: 58pm Family hx of colon cancer June 17 12:58pm Marginal insertion of umbili nicola cord affecting management of mother June 17, 2024 12:58pm Obesity affecting June 17, 2024 12:58pm June 17, 2024 12: 58pm Supervision of high-risk June 17, 2024 12:58pm Abnormal genetic test during M ay 2024 1:46pm Back pain July 01, 2024 1:46pm Family hx of colon cancer July 01, 2024 1:46pm Marginal insertion of umbili nicola cord affecting management of mother July 01, 2024 1:46pm Obesity affecting July 01 1:46pm July 01, 2024 1:46pm Supervision of high-risk July 012024 1:46pm Abnormal genetic test during M ay 2024 11:17am Back pain July 11, 2024 11:17 am Family hx of colon cancer July 11, 2024 11:17am Marginal insertion of umbili nicola cord affecting management of mother July 11, 2024 11:17am Obesity affecting July 11 11:17am July 11, 2024 11:17 am Supervision of high-risk June 302024 11:17am Abnormal genetic test during M ay 2024 1:06pm Back pain July 28, 2024 1:06p m Cholestasis during July 28, 025 1:06pm Family hx of colon cancer July 28, 2024 1:06pm Marginal insertion of umbili nicola cord affecting management of mother July 28, 2024 1:06pm Obesity affecting July 28 1:06pm July 28, 2024 1:06p m Pruritus of July 28, 2024 1:0 6pm Supervision of high-risk July 012024 1:06pm Additional Source Comments INFORMATION SOURCE (unrecogn ized section and content) DATE CREATED AUTHOR 03/12/2021 [employer] DATE CREATED AUTHOR AUTHOR'S ORGANIZ ATION 03/25/2021 [facility] DATE CREATED AUTHOR AUTHOR'S ORGANIZ ATION 03/27/2021 [facility] DATE CREATED AUTHOR AUTHOR'S ORGANIZ ATION 12/28/2022 [facility] DATE CREATED AUTHOR AUTHOR'S ORGANIZ ATION 12/29/2022 [facility] DATE CREATED AUTHOR AUTHOR'S ORGANIZ ATION 07/13/2024 [facility] DATE CREATED AUTHOR AUTHOR'S ORGANIZ ATION 08/03/2024 [facility] DATE CREATED AUTHOR AUTHOR'S ORGANIZ ATION 08/04/2024 [facility] Goals (unrecognized section and content) Goals may be documented in a n alternate section Care Teams (unrecognized sec tion and content) Team Status: Active Member Role Status Dates Dr. Marc Gusman MD Primary Care Provider Active Team Status: Inactive Member Role Status Dates Dr. Marc Gusman MD Primary Care Provider, Referr ing Provider Active Dina Sood BARN MANAGER, BARN MANAGER-C Attending Provider Active Team Status: Inactive Member Role Status Dates Dr. Marc Gusman MD Primary Care Provider, Referr ing Provider Active Dr. Lindsay Amaral DC Attending Provider Active Team Status: Inactive Member Role Status Dates Dr. Marc Gusman MD Primary Care Provider, Referr ing Provider Active Dr. Katie Parekh MD Attending Provider Active Team Status: Inactive Member Role Status Dates Dr. Marc Gusman MD Primary Care Provider, Referr ing Provider Active Dr. Marla Arthur DO Attending Provider Activ e Team Status: Inactive Member Role Status Dates Dr. Marc Gusman MD Primary Care Provider, Referr ing Provider Active Kylah Arora CNM Active Dina Sood BARN MANAGER, BARN MANAGER-C Attending Provider Active Team Status: Inactive Member Role Status Dates Dr. Marc Gusman MD Primary Care Provider Active Dr. Marla Arthur DO Attending Provider, Refe rring Provider Active Team Status: Inactive Member Role Status Dates Dr. Marc Gusman MD Primary Care Provider Active Dr. Katie Parekh MD Attending Provider, Referr ing Provider Active Team Status: Active Member Role Status Dates Dr. Marc Gusman MD Primary Care Provider Active Dr. Katie Parekh MD Admit Provid er, Attending Provider, Referring Provider, Other Provider Active Team Status: Active Member Role Status Dates Dr. Marc Gusman MD Primary Care Provider Active Dr. Katie Parekh MD Admit Provid er, Referring Provider, Other Provider Active Rekha Ayala CNM Attending Provider Active Team Status: Inactive Member Role Status Dates Dr. Marc Gusman MD Primary Care Provider Active Dr. Katie Parekh MD Admit Provid er, Attending Provider, Referring Provider Active Team Status: Inactive Member Role Status Dates Dr. Marc Gusman MD Primary Care Provider, Referr ing Provider Active Clementina Tan NP, BARN MANAGER-C Attending Provider Active Team Status: Inactive Member Role Status Dates Dr. Marc Gusman MD Primary Care Provider Active Dr. Katie Parekh MD Attending Provider Active Window Glazier Helper Relationship Specialty Start Date End Date Angelina Gusman MD PCP - General 03/11/21 Window Glazier Helper Relationship Specialty Start Date End Date Angelina Gusman MD [address] [place] [address] PCP - General Family Medicine 12/19/22 Team Status: Inactive Member Role Status Dates Dr. Katie Parekh MD Attending Provider Active Start: February 17, 2024 End: February 17, 2024 Team Status: Inactive Member Role Status Dates Dr. Katie Parekh MD Attending Provider Active Start: February 17, 2024 End: February 17, 2024 Dr. Katie Parekh MD Referring Provider Active Start: February 17, 2024 End: February 17, 2024 Team Status: Inactive Member Role Status Dates Dr. Katie Parekh MD Attending Provider Active Start: March 17, 2024 End: March 17, 2024 Team Status: Inactive Member Role Status Dates Dr. Katie Parekh MD Attending Provider Active Start: March 17, 2024 End: March 17, 2024 Dr. Katie Parekh MD Referring Provider Active Start: March 17, 2024 End: March 17, 2024 Team Status: Inactive Member Role Status Dates Dr. Marla Arthur DO Attending Provider Activ e Start: April 14, 2024 End: April 14, 2024 Team Status: Inactive Member Role Status Dates Dr. Marla Arthur DO Attending Provider Activ e Start: May 12, 2024 End: May 12, 2024 Team Status: Inactive Member Role Status Dates Dr. Marla Arthur DO Attending Provider Activ e Start: June 03, 2024 End: June 03, 2024 Team Status: Inactive Member Role Status Dates Rekha Ayala CNM Attending Provider Active S tart: June 03, 2024 End: June 03, 2024 Rekha Ayala CNM Referring Provider Active S tart: June 03, 2024 End: June 03, 2024 Team Status: Inactive Member Role Status Dates Rekha Ayala CNM Attending Provider Active S tart: June 17, 2024 End: June 17, 2024 Team Status: Inactive Member Role Status Dates Rekha Ayala CNM Attending Provider Active S tart: July 01, 2024 End: July 01, 2024 Team Status: Inactive Member Role Status Dates Rekha Ayala CNM Attending Provider Active S tart: July 11, 2024 End: July 11, 2024 Team Status: Inactive Member Role Status Dates Rekha Ayala CNM Attending Provider Active S tart: July 11, 2024 End: July 11, 2024 Rekha Ayala CNM Referring Provider Active S tart: July 11, 2024 End: July 11, 2024 Window Glazier Helper Relationship Specialty Start Date End Date [place] [address] PCP - General Pediatrics 03/28/24 Rekha Ayala CNM [address] [place] [address] [facility] [address] [place] [id number] Referring Physician Obstetrics 07/12/24 Team Status: Active Member Role Status Dates No Primary Care Physician Primary Care Provider Active Team Status: Inactive Member Role Status Dates Rekha Ayala CNM Attending Provider Active S tart: July 20, 2024 End: July 20, 2024 Rekha Ayala CNM Referring Provider Active S tart: July 20, 2024 End: July 20, 2024 No Primary Care Physician Primary Care Provider Active Start: July 20, 2024 End: July 20, 2024 Team Status: Inactive Member Role Status Dates Dr. Katie Parekh MD Attending Provider Active Start: July 28, 2024 End: July 28, 2024 No Primary Care Physician Primary Care Provider Active Start: July 28, 2024 End: July 28, 2024 No Primary Care Physician Referring Provider Active Start: July 28, 2024 End: July 28, 2024 Reason for Visit (unrecogniz ed section and content) Reason Comments Annual Exam Reason Comments Joint Pain Itching Specialty Diagnoses / Procedures Referred By Contac t Referred To Contact Rheumatology Diagnoses Arthralgia, unspecified joint Chronic fatigue Procedures NM OFFICE/OUTPATIENT [facility] 60-74 MINUTES Angelina Gusman MD [address] [place] [address] Kevan Khan, DO [address] [place] [address] Referral ID Status Reason Start Date Expiration Date Visits Requested Visits Authorized [id number] Pending Review Specialty Services Required 3 06/08/2023 1 1 FOR RECORDS PERTAINING TO PATIENTS WHO ARE OR HAVE BEEN ENROLLED IN A CHEMICAL DEPENDENCY/SUBSTANCEABUSE PROGRAM, SOME INFORMATION MAY BE OMITTED. This clinical summary was aggregated from multiple sources. Caution should be exercised in using it in the provision of clinical care. This summary normalizes information from multiple sources, and as a consequence, information in this document may materially change the coding, format and clinical context of patient data. In addition, data may be omitted in some cases. CLINICAL DECISIONS SHOULD BE BASED ON THE PRIMARY CLINICAL RECORDS. [facility] [employer] provides no warranty or guarantee of the accuracy or completeness of information in this document.
[2024-08-05] MEDS: Lactated Ringers 1,000 ML 50 ML IV (07:45)
--- NOTE | 2024-08-05 07:56 | HP.PCM.OB_ITS ---
HPI - General General Date of Admission: 08/05/24 Date of Service: 08/05/24 HPI Narrative LEIF RAY, is a 34 F 37.0 week gestation who presents to unit for induction of labor for cholestasis. Was seen by MFM this week who recommended IOL at 37 weeks. SVE plan pitocin induction. Maternal Data Information SOLANGE Calculator Estimated Delivery Date Method Current WG Current Estimate 08/26/24 LMP (Certain) 37w 0d Final SOLANGE: 08/26/24 Final SOLANGE Source: US >20 weeks Gestational age: 37.0 PFSH PFSH Medical History Back pain Vaginal delivery Home Medications ?Medication ?Instructions ?Recorded ?Last Taken ?Type multivitamin no.47-iron fum 27 1 cap PO DAILY PREGNANC Y 11/06/21 08/05/24 05:30 History mg-folate no.1 1 mg-dha 300 mg capsule (PNV-DHA) ursodiol 300 mg capsule 300 mg PO BID yuniel #60 caps 07/11/24 08/05/24 05:30 Rx Allergy/AdvReac Type Severity Reaction Status Date / Time No Known Allergies Allergy Verified 08/05/24 07:43 Family History Father Colon cancer, Onset Age: 50 Survivor Social History adopted: No household members: spouse and children housing: house number of children: 1 current occupational status: employed 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 current occupational exposures/hazards: Yes pets and animals: Yes pets and animals: cat(s), dog(s) and farm animals leisure activities: sports history of recent travel: No sexually active: Yes Smoking Status: Never smoker second hand exposure: No alcohol intake: former details: Not while substance use type: does not use well-balanced diet: daily or most days caffeine: Yes Type: coffee Number of servings: 2 and tea Number of servings: 1 eating out: 1-3 times/week during the past year weight has: increased > 10 lbs what type of physical activity do you participate in: walking frequency: 1-2 times per week duration: 15-30 minutes/day grazyna/latter day: [employer] seatbelt use: always do you feel safe at home: Yes additional social history: Spouse Luis- Nurse Staff Industrial History 2 Elective abortions Hx Para 1 Spontaneous abortions Hx # Term Pregnancies 1 Ectopic pregnancies Hx # Pregnancies Multiple births # of living children 1 Past Pregnancies Del. Date Name GA/Weeks Outcome Route Bth Weight Infant Gen Labor Lgth Anesthesia Del Locatn Provider FOB 06/08/22 Pippa 39 live - full term 8lb 1oz Female [facility] [place] Delivery Date: 06/08/22 Last Updated by: Nivia Castillo IOL Visit Details Expected Delivery Route/Plan Labor Preferences- CB/BF classes: [] labor support person: [] labor intervention preferences: [] pain management options preferred: [] cut cord/dad catch: [] : [] PP control planned: [] discussed possible routes of delivery and associated risks: [] special requests: [] Plans Covid status: [] Flu vaccine: [] Tdap vaccine: [] Rhogam: [] LARC form signed: [] Problem list reviewed and updated with the most current plan of care details and appropriate orders placed. Relevant counseling for the gestational age provided. Continue routine care and follow up unless otherwise noted in visit notes/problem list details OB Flowsheet Initial Weight: 222 lb Date -?-?-?-?-?-?-?-?-?-?-?-?- EGA Weight BP Urine Prot -?-?-?-?-?-?-?-?-?-?-?-?- Glucose FHR FuHt Pres Dilation -?-?-?-?-?-?-?-?-?-?-?-?- Effaced St Visit Note 01/21/24 -?-?-?-?-?-?-?-?-?-?-?-?- 8w 6d 222 lb (+0 oz) 114/75 -?-?-?-?-?-?-?-?-?-?-?-?- 180 -?-?-?-?-?-?-?-?-?-?-?-?- KW- CRL cons wit h dates. accepts NIPT. flu shot today. 02/17/24 -?-?-?-?-?-?-?-?-?-?-?-?- 12w 5d 218 lb 8 oz (-3 lb 8 oz) 126/78 Negative -?-?-?-?-?-?-?-?-?-?-?-?- Negative 150 -?-?-?-?-?-?-?-?-?-?-?-?- SM- reviewed NIP T results today, normal bedside scan but limited positioning. offered immediate MFM referral for possible CVS, patient requesting repeat NIPT first, will accept NT screen with MFM in meantime though 03/17/24 -?-?-?-?-?-?-?-?-?-?-?-?- 16w 6d 223 lb 2 oz (+1 lb 2 oz) 114/73 Negative -?-?-?-?-?-?-?-?-?-?-?-?- Negative 150 -?-?-?-?-?-?-?-?-?-?-?-?- Sm- no vb lof go od fm no regular ctx 04/14/24 -?-?-?-?-?-?-?-?-?-?-?-?- 20w 6d 224 lb 2 oz (+2 lb 2 oz) 114/71 Negative -?-?-?-?-?-?-?--?-?-?-?-?- Negative 148 -?-?-?-?-?-?-?-?-?-?-?-?- JV- no complaint s. Just confused if needs growth scans q 4 weeks for marginal cord insertion. JV- no complaints. Just conf used if needs growth scans q 4 weeks for marginal cord insertion.message out to MFM to know the answer. will call her soon. 05/12/24 -?-?-?-?-?-?-?-?-?-?-?-?- 24w 6d 226 lb 2 oz (+4 lb 2 oz) 101/62 Negative -?-?-?-?-?-?-?-?-?-?-?-?- Negative 145 25 -?-?-?-?-?-?-?-?-?-?-?-?- JV- no complaint s today + FM. plan for glucola today. 06/03/24 -?-?-?-?-?-?-?-?-?-?-?-?- 28w 0d 228 lb 8 oz (+6 lb 8 oz) 117/75 Negative -?--?-?-?-?-?-?-?-?-?-?-?- Negative 140 29 -?-?-?-?-?-?-?-?-?-?-?-?- JV- glucola done today. + FM. Wants flu shot today. 06/17/24 -?-?-?-?-?-?-?-?-?-?-?-?- 30w 0d 230 lb 4 oz (+8 lb 4 oz) 126/79 Negative -?-?-?-?-?-?-?-?-?-?-?-?- Negative 130 30 -?-?-?-?-?-?-?-?-?-?-?-?- KW- no vb/lof/ct x. good fm. Planning on donating cord blood. 07/01/24 -?-?-?-?-?-?-?-?-?-?-?-?- 32w 0d 233 lb (+11 lb) 107/72 Negative -?-?-?-?-?-?-?-?-?-?-?-?- Negative 130 33 -?-?-?-?-?-?-?-?-?-?-?-?- KW- work in for JV. no vb/lof/ctx. good fm. no concerns today. 07/11/24 -?--?-?-?-?-?-?-?-?-?-?-?- 33w 3d 231 lb 2 oz (+9 lb 2 oz) 134/82 Negative -?-?-?-?-?-?-?-?-?-?-?-?- Negative 130 34 -?-?-?-?-?-?-?-?-?-?-?--?- KW- no vb/lof/ct x. good fm. sick last week. has had itching on soles of feet and palms of hands. she is concerned for cholestasis-labs ordered. KW- no vb/lof/ctx. good fm. sick last week. has had itching on soles of feet and palms of hands for the last 2 nights. she is concerned for cholestasis-labs ordered. is relieved with Benadryl cream when she uses it. 07/28/24 -?-?-?-?-?-?-?-?-?-?-?-?- 35w 6d 235 lb 2 oz (+13 lb 2 oz) 117/68 Negative -?-?-?-?-?-?-?-?-?-?-?-?- Negative 135 36 Cephalic 2 -?-?-?-?-?-?-?-?-?-?-?-?- SM- no vb lof go od fm no regular ctx no significant ctx SM- no vb lof good fm no reg ular ctx gbs collected planning mfm teleheath visit next thursday and cbc cmp today NST FHR Rate Baby A Baseline: 130 Variability:: Moderate Accelerations:: 15 x 15 Decelerations:: None NST Reactive:: Yes FHR Category:: Category I Uterine Activity:: irregular ROS Constitutional Constitutional: Denies change in weight, fatigue, fever(s), headache(s), poor appetite or weakness Eyes Eyes: Denies blurry vision, change in vision, floaters, seeing flashes or spots in vision ENT HEENT: Denies dizziness, headache(s), loss taste/smell or sore throat Cardiovascular Cardiovascular: Denies chest pain, dizziness, dyspnea, irregular heart rhythm, lightheadedness, palpitations or rapid heart rate Respiratory/Chest Respiratory/Chest: Denies change in mental status, chest tightness, cough, dyspnea or breast pain Gastrointestinal Gastrointestinal: Denies anorexia, chewing difficulty, constipation, diarrhea or weight changes Genitourinary Genitourinary: Denies difficulty urinating, dysuria, flank pain, genital pain, urinary frequency or urinary urgency Musculoskeletal Musculoskeletal: Denies back pain, difficulty walking, extremity pain, joint pain, muscle cramps or muscle weakness Integumentary Integumentary: Denies lesions or unusual bruising Neurologic Neurologic: Denies abnormal movements, abnormal speech, dizziness, numbness, seizure-like activity, syncope or weakness Psychiatric Psychiatric: Denies behavioral changes, change in appetite, confusion, de pression, homicidal ideation, suicidal ideation or suicidal thoughts Endocrine Endocrinology: Denies excessive sweating, polydipsia or polyuria Hematologic/Lymphatic Hematologic/Lymphatic: Denies anemia Allergic/Immunologic Allergic/Immunologic: Denies itchy eyes, lip swelling, throat swelling, tongue swelling or wheezing Vital Signs Vital Signs Vital Signs: Weight Weight: 236 lb Body Mass Index (BMI) 38.0 Physical Exam Const alert, oriented x3 and no apparent distress General Appearance: cooperative Orientation / Consciousness: awake HEENT normocephalic Neck full ROM Lymph Lymphatic: no lymphadenopathy noted Chest inspection of chest normal Resp normal respiratory effort and normal air movement Effort and Inspection: able to speak in complete sentences and symmetric chest movement GI soft to palpation and non-tender Inspection: gravid Palpation: soft; Negative for tender external exam normal Back/Spine normal to inspection Extremity normal to inspection and full ROM Skin no rashes or lesions noted Psych mental status grossly normal Appearance: grossly normal Speech: normal speech Labs Labs Labs: Blood Type B POSITIVE Antibody Screen NEGATIVE Hct 33.9 % (37-47) L Hgb 11.0 g/dL (12.0-15.0) L Pap Smear Negative Syphilis Total Ab Nonreactive (Nonreactive) Rubella IgG Antibody Reactive (Nonreactive) Hep Bs Antigen Non-Reactive (Nonreactive) Hepatitis C Antibody Non-Reactive (Nonreactive) Chlamydia DNA (NEHEMIAH) Negative (Negative) N.gonorrhoeae DNA (NEHEMIAH) Negative (Negative) HIV 1&2 Antibody Nonreactive (Nonreactive) Glucose 1 Hr 50 gm 94 mg/dL (70-140) Rhogam given: No Miscellaneous Test Assessment & Plan (1) Encounter for induction of labor: PLAN: Patient presents IOL, plan management for with pitocin/AROM. Pain management: plans epidural. GBS positive-PCN. Management of any complications: see list I have [facility] and made any clinically relevant updates. Dr Herrera aware of assessment and plan. agrees with admission (2) GBS (group B Streptococcus carrier), +RV culture, currently : COMMENT: PCN in labor (3) Cholestasis during : COMMENT: twice weekly BPPs, weekly labs, consult with MFM per KW. REJI said unclear diagnosis- await telehealth visit to determine delivery timing. Dr. Coley recommends delivery at 37w. (4) Pruritus of : COMMENT: elevated AST. cbc nl and bile acids 7.7. MFM consult (5) Marginal insertion of umbilical cord affecting management of mother: COMMENT: per mfm, NO q 4 week scans needed (6) Abnormal genetic test during : COMMENT: high risk low fraction 1:17 for triploidy, tri18 tri 13. patient requests repeat NIPT low risk,and MFM referral for NT screen possible CVS eventually (7) Back pain: (8) Supervision of high-risk : COMMENT: PRR, , SOLANGE 08/26/24, boy, OLY Das, Luis (9) Obesity affecting : COMMENT: [id number] (10) : QUALIFIERS: Weeks of gestation: 35 weeks Qualified Code(s): Z3A.35 - 35 weeks gestation of COMMENT: NIPT low risk. nl NT screen, nl anatomy, nl GCT (11) Family hx of colon cancer: COMMENT: Father 50 yo Survivor Charges/Coding Multi Select Codes Urinary/Genital Urinary/Genital CPT Codes: No Charge
[2024-08-05] MEDS: Oxytocin 15 Units/NS 250ml 15 UNITS/250 ML IV.SOLN 2 UNITS IV (08:07)
[2024-08-05 08:33] LABS: Absolute Lymphocyte Count 1.45 X10^3/uL (0.83-4.51); Absolute Neutrophil Count 5.4 X10^3/uL (2.0-7.7); Basophil# 0.02 X10^3/uL; Basophil% 0.3 % (0-1); Eosinophil# 0.06 X10^3/uL; Eosinophils% 0.8 % (0-5); Hematocrit 33.6 % (37-47); Hemoglobin 10.9 g/dL (12.0-15.0); Lymphocyte # 1.45 X10^3/ul (0.83-4.51); Lymphocyte % 19.3 % (19-41); Mean Corp Hgb Conc 32.4 g/dL (32-36); Mean Corpuscular Hgb 26.7 pg (27.0-32.0); Mean Corpuscular Volume 82.4 fL (81-99); Mean Platelet Vol. 10.9 fl (6.2-12.0); Monocyte# 0.56 X10^3/uL; Monocyte% 7.5 % (0-10); NRBC Flagged by Analyzer 0 % (0-5); Neutrophil # 5.39 X10^3/uL (2.7-7.7); Neutrophil % 71.7 % (47-70); Platelet Count 228 K/mm3 (150-450); RBC Distribution Width CV 13.2 % (11.6-14.6); RBC Distribution Width SD 39.2 fl (35.1-43.9); Red Blood Count 4.08 M/mm3 (4.2-5.4); White Blood Count 7.5 K/mm3 (4.4-11.0)
[2024-08-05] MEDS: Penicillin G Pot 5,000,000 UNITS in 0.9% Normal Saline (100mL MB+) 100 ML 150 UNITS IV (09:02)
[2024-08-05 09:29] LABS: Syphilis Antibodies Nonreactive (Nonreactive)
[2024-08-05] MEDS: Lactated Ringers 1,000 ML 999 ML IV ×2 (12:02→15:00)
--- NOTE | 2024-08-05 12:17 | PN_ITS ---
Progress Note Coping well with contractions current tracing: FHT: 120 Moderate variability reactive no decelerations category I tracing [place]: 2-3 minute Contractions Membranes:AROM at 1210 for clear fluid SVE:3/70/-2 A/P: Continue with position changes Titrate pitocin per protocol Epidural per anesthesia PCN for GBS prophylaxis Anticipate Dr Herrera aware of above assessment and agrees with plan of care Assessment & Plan Assessment/Plan (1) Encounter for induction of labor: (2) GBS (group B Streptococcus carrier), +RV culture, currently : (3) Cholestasis during : (4) Pruritus of : (5) Marginal insertion of umbilical cord affecting management of mother: (6) Abnormal genetic test during : (7) Supervision of high-risk : (8) Obesity affecting : (9) : QUALIFIERS: Weeks of gestation: 35 weeks Qualified Code(s): Z3A.35 - 35 weeks gestation of (10) Family hx of colon cancer: (11) Back pain: Multi Select Codes Urinary/Genital Urinary/Genital CPT Codes: No Charge
[2024-08-05] MEDS: fentaNYL-bupivacaine (epidural) 100 ML BAG EPIDURAL ×2 (12:52→17:49)
[2024-08-05] MEDS: Penicillin G 3,000,000 Units 50 ML 100 UNITS IV ×2 (13:09→17:47)
[2024-08-05] MEDS: Lactated Ringers 1,000 ML 200 ML IV (16:09)
[2024-08-05] MEDS: 0.9% Normal Saline 100 ML IV.SOLN. 300 ML INTRA-UTER (16:26)
--- NOTE | 2024-08-05 16:28 | PN_ITS ---
Progress Note comfortable with epidural current tracing: FHT: 100 Moderate variability reactive variable and some late decelerations category II tracing [place]: 3-[address] Membranes:remains clear SVE:/ reviewed tracing abnormalities since last note: phone collaboration with Dr Herrera at this time for Cat II FHT tracing. Amnio was started and pitocin is off. fluid bolus complete A/P: Continue with position changes Titrate pitocin per protocol Epidural per anesthesia PCN for GBS prophylaxis Anticipate Dr Herrera aware of above assessment and agrees with plan of care Assessment & Plan Assessment/Plan (1) Encounter for induction of labor: (2) GBS (group B Streptococcus carrier), +RV culture, currently : (3) Cholestasis during : (4) Pruritus of : (5) Marginal insertion of umbilical cord affecting management of mother: (6) Abnormal genetic test during : (7) Supervision of high-risk : (8) Obesity affecting : (9) : QUALIFIERS: Weeks of gestation: 35 weeks Qualified Code(s): Z3A.35 - 35 weeks gestation of (10) Family hx of colon cancer: (11) Back pain: Multi Select Codes Urinary/Genital Urinary/Genital CPT Codes: No Charge
--- NOTE | 2024-08-05 17:49 | PCM.PN.BLA ---
Progress Note comfortable with epidural. current tracing: FHT: 110 Moderate variability reactive no decelerations category I tracing [place]: 3-4 minute Contractions with IUPC in place. continuing amnioinfusion Membranes:remains clear SVE:8.5/90/-1 Unchanged from last exam. Cat 1 fht-decision made to start low dose pitocin reviewed tracing abnormalities since last note: collaboration with Dr Herrera at this time. Is on unit for another patient. A/P: Continue with position changes Titrate pitocin per protocol Epidural per anesthesia PCN for GBS prophylaxis Anticipate Dr Herrera aware of above assessment and agrees with plan of care Assessment & Plan Assessment/Plan (1) Encounter for induction of labor: (2) GBS (group B Streptococcus carrier), +RV culture, currently : (3) Cholestasis during : (4) Pruritus of : (5) Marginal insertion of umbilical cord affecting management of mother: (6) Abnormal genetic test during : (7) Supervision of high-risk : (8) Obesity affecting : (9) : QUALIFIERS: Weeks of gestation: 35 weeks Qualified Code(s): Z3A.35 - 35 weeks gestation of (10) Family hx of colon cancer: (11) Back pain: Multi Select Codes Urinary/Genital Urinary/Genital CPT Codes: No Charge
--- NOTE | 2024-08-05 19:00 | PCM.PN.OB ---
Subjective Subjective Called stat to room for decreased maternal blood pressure and heart tones in the 60 to 70s. Maternal blood pressure and then heart tones dropped after the patient's third dose of penicillin. When I arrived heart tones had been in the 60s to 70s for about 8-10 minutes and the baby was . Patient had received ephedrine and epidural had been turned off. I applied Kiwi vacuum and head was delivered after 2 pulls with 1 pop-off. It was necessary to do a first-degree midline episiotomy (which extended to a second-degree midline laceration) in order to expedite delivery of the head. Baby was noted to have good tone and cry to move all extremities vigorously before being handed off to pediatric personnel who were present for the delivery. Cord gases will be collected and placenta sent for examination. 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 Objective Data Objective Data Vital Signs: Vital Signs Temp Pulse Resp BP Pulse Ox 96.7 F L 43 L 17 121/58 H 92 08/05/24 17:43 08/05/24 18:50 08/05/24 17:43 08/05/24 18:50 08/05/24 18:40 Weight: 236 lb Body Mass Index (BMI) 38.0 Intake & Output: Intake and Output for Last 24 Hours 08/03/24 08/04/24 08/05/24 23:59 23:59 23:59 Intake Total 3253.70 / 3253.70 Output Total 650 / 650 Balance 2603.70 / 2603.70 Lab / Micro Data 08/05/24 08:25 Labs: Laboratory Results - last 24 hr 08/05/24 08:25: WBC 7.5, RBC 4.08 L, Hgb 10.9 L, Hct 33.6 L, MCV 82.4, MCH 26.7 L, MCHC 32.4, RDW Std Deviation 39.2, RDW Coeff of Tera 13.2, Plt Count 228, MPV 10.9, Immature Gran % (Auto) 0.400, Neut % (Auto) 71.7 H, Lymph % (Auto) 19.3, Reynolds % (Auto) 7.5, Eos % (Auto) 0.8, Baso % (Auto) 0.3, Absolute Neuts (auto) 5.4, Absolute Lymphs (auto) 1.45, Nucleated RBC % 0, Syphilis Total Ab Nonreactive, Blood Type B POSITIVE, Antibody Screen NEGATIVE
--- NOTE | 2024-08-05 19:14 | EX.PCM.OBVAG ---
Assessment & Plan (1) Vaginal delivery: COMMENT: KW/JW 37.0 IOL kiwi assist (2) Encounter for induction of labor: (3) GBS (group B Streptococcus carrier), +RV culture, currently : COMMENT: PCN in labor (4) Cholestasis during : COMMENT: twice weekly BPPs, weekly labs, consult with MFM per KW. MFM said unclear diagnosis- await telehealth visit to determine delivery timing. Dr. Coley recommends delivery at 37w. (5) Vacuum extraction, delivered, current hospitalization: (6) Pruritus of : COMMENT: elevated AST. cbc nl and bile acids 7.7. MFM consult (7) Marginal insertion of umbilical cord affecting management of mother: COMMENT: per mfm, NO q 4 week scans needed (8) Abnormal genetic test during : COMMENT: high risk low fraction 1:17 for triploidy, tri18 tri 13. patient requests repeat NIPT low risk,and MFM referral for NT screen possible CVS eventually (9) Supervision of high-risk : COMMENT: PRR, , SOLANGE 08/26/24, boy, OLY Das, Luis (10) Obesity affecting : COMMENT: [id number] (11) : QUALIFIERS: Weeks of gestation: 35 weeks Qualified Code(s): Z3A.35 - 35 weeks gestation of COMMENT: NIPT low risk. nl NT screen, nl anatomy, nl GCT (12) Family hx of colon cancer: COMMENT: Father 50 yo Survivor (13) Back pain: Maternal Data Information SOLANGE Calculator Estimated Delivery Date Method Current WG Current Estimate 08/26/24 LMP (Certain) 37w 0d Final SOLANGE: 08/26/24 Final SOLANGE Source: US >20 weeks Gestational age: 37.0 Vaginal Delivery Maternal Presentation Maternal Presentation: Medically Indicated Induction Maternal Presentation: Presented to unit for induction of labor for cholestasis Type of Induction: Pitocin and Amniotomy Medical Reason for Induction: Maternal Medical Condition: list: (cholestasis) Vaginal Delivery Information Procedure Performed: Vacuum Assisted Vaginal Delivery Station at time of placement: +3 Number of vacuum pulls: 2 Number of vacuum pop offs: 2 Surgeon/Practitioner: Rikcy Oro Date of Procedure: 08/05/24 Pre-Procedure Diagnosis: see problem list Post-Procedure Diagnosis: same Type of anesthesia: Epidural Estimated Blood Loss: 300 Time of Delivery: 18:53 Findings Description of procedure: After third dose of PCN patients BP dropped and FHT dropped to 60-70s. patient was 9.5 cm and was able to push past the rest of the cervix. Dr Oro was called for kiwi assistance for heart rate not returning to baseline.Patient pushing effectively while waiting for Dr Oro to arrive to room. Kiwi was applied (see dr oros note). After episiotomy was made, Delivered the head in BRIJESH presentation. The head was delivered atraumatically and a loose nuchal cord was identified and delivered through. The anterior and posterior shoulders delivered without complication followed by the rest of the infant and the was placed on the maternal abdomen. Cord was clamped and cut. handed off to waiting nursery team. I then took over the rest of the delivery and Gentle traction was applied to the cord and the placenta delivered spontaneously. Immediately following, it was noted to be intact with a 3 vessel cord. Uterine bleeding stable. The perineum and vagina were inspected and noted to have a second degree episiotomy which was repaired by me with 3-0 Vicryl in the usual fashion. EBL was 300cc. Patient and tolerated delivery well. Apgars 7/8. Dr Oro notified of vaginal delivery and orders reviewed. Physician agrees with current plan of care. 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
--- NOTE | 2024-08-05 19:23 | DCINST_ITS ---
Discharge Instructions Diet Discharge Diet: No restrictions DC O2, CPAP, BIPAP needs Home O2 Discharge instructions: No Dressing / Incision Discharge Activity: Return to Normal Activity May resume sexual activity in: 6-8 weeks Dressing / Incision Call your doctor if you observe: Fever of 101 or Higher, Coldness, Increased Pain, Numbness or Tingling, Change in Color, Inability to urinate, Inability to have a bowel movement, Using more than 1 pad per hour, Shortness of breath, Dizziness, Fainting spells, Swelling in the ankles, Chest pain, Increased p alpitations (irregular heartbeat), Calf discomfort and Uncontrolled pain Follow Up Care Please Follow Up With: Melanie Ashley CNM When: Please call the office to schedule your follow up appointment in 6 weeks. If you had high blood pressure please call to schedule an appointment in 2 weeks. Test Results: Test results from this visit will be discussed in further detail at your follow- up appointment, if applicable. Discharge Plan Admission Admit Date/Time: 08/05/24 07:15 Attending Provider: Melanie Ashley Primary Care Provider: Care Physician,Nicole Primary Discharge Orders/Prescriptions Prescriptions: No Action PNV-DHA 27 mg iron-1 mg -300 mg capsule 1 cap PO DAILY ursodiol 300 mg capsule 300 mg PO BID Qty: 60 2RF Referrals / Follow Up: Care Physician,No Primary [Primary Care Provider] -
[2024-08-05] MEDS: Oxytocin 15 Units/NS 250ml 15 UNITS/250 ML IV.SOLN 83 UNITS IV (19:37)
--- NOTE | 2024-08-05 19:46 | PLAC_PTH ---
PATIENT: LEIF RAY LOC: [facility] U#:[id number] AGE/SX: 34/F ROOM: WP018 RE08/05/[address]: Melanie Ashley CNM : 1990 BED: 1 DIS: 08/07/2024 SPEC #: [id number] RECD: 08/06/24 00:13 STATUS: ISRRAEL REChelsie #: [id number] KAUR: 08/05/24 19:[address]: Ricky Herrera DEPT: SURGICAL PATHOLOGY RECD BY: Rut Millan ENTERED: 08/08/24 07:16 SP TYPE: PLACENTA OTHR DR: Melanie Ashley CNM No Primary Care Phys Tissues: A - Placenta, NOS Procedures: Surgery Specimen Level V HEADER OPERATION: Delivery PRE-OP DIAGNOSIS: Cholestasis TISSUE SUBMITTED: A- Placenta MICROSCOPIC DIAGNOSIS A. Placenta, vaginal delivery: * Eccentrically inserted and trivascular umbilical cord without active inflammation * Marginally inserted membranes without active inflammation * Mature (third trimester) placenta without active inflammation and with an intramural infarction (1.1 cm in diameter) MICROSCOPIC DESCRIPTION Slides are reviewed. GROSS DESCRIPTION A. Received in formalin and labeled with the patient's name and date of is a 611.1 g, 17.4 x 16.7 x 2.4 cm ovoid cochran placenta. The membranes are araiza and translucent with focal opacity, inserting marginally. The attached, trivascular umbilical cord measures 36.0 cm in length x 1.2 to 1.5 cm in diameter and appears focally compressed and inserts eccentrically, 3.5 cm from the disc edge; there is a possible umbilical cord tether, 1.5 cm from the surface. The surface is blue and glistening with focal, subchorionic fibrin (<5%). The maternal surface is dark red-brown with a focally torn appearance, patchy subchorionic fibrin (<10%) and loosely adherent blood clot along the periphery. Sections have dark red spongy parenchyma with focal fibrin and hemorrhage (<10%). Drift [place]er sections are submitted as follows: A1: Membrane rollA2: Umbilical cordA3: Placenta, surface with subchorionic fibrinA4: Placenta, maternal surface with hemorrhage and fibrin [facility] [place] 08/09/2024
[2024-08-06] VITALS (12 sets, daily range): BP systolic 116–131; BP diastolic 57–69; PULSE 63–83; RESP 16–17; TEMP 36.2–36.8; O2SAT 96–99
[2024-08-06] MEDS: Ibuprofen 600 MG Tablet PO ×3 (07:38→20:28)
--- NOTE | 2024-08-06 08:31 | PN.OBGYN_ITS ---
Subjective Subjective Patient doing well without complaints. Tolerating PO. Ambulating and voiding without difficulty. Feeding well. Denies chest pain, shortness of breath, calf pain/swelling, fevers, chills, lightheadedness. Objective Data Objective Data Vital Signs: Vital Signs Temp Pulse Resp BP Pulse Ox O2 Del Method 97.5 F L 68 16 116/63 99 Room Air 08/06/24 07:43 08/06/24 07:43 08/06/24 07:43 08/06/24 07:43 08/06/24 07:43 08/06/24 07:43 Oxygen Delivery Method Room Air Weight: 236 lb Body Mass Index (BMI) 38.0 Intake & Output: Intake and Output for Last 24 Hours 08/04/24 08/05/24 08/06/24 23:59 23:59 23:59 Intake Total 4450.00 / 4450.00 250 / 250 Output Total 1850 / 1850 1500 / 1500 Balance 2600.00 / 2600.00 -1250 / -1250 Lab / Micro Data Attestation: I reviewed the patient's lab results. 08/05/24 08:25 Labs: Laboratory Results - last 24 hr 08/05/24 08:25: WBC 7.5, RBC 4.08 L, Hgb 10.9 L, Hct 33.6 L, MCV 82.4, MCH 26.7 L, MCHC 32.4, RDW Std Deviation 39.2, RDW Coeff of Tera 13.2, Plt Count 228, MPV 10.9, Immature Gran % (Auto) 0.400, Neut % (Auto) 71.7 H, Lymph % (Auto) 19.3, [place] % (Auto) 7.5, Eos % (Auto) 0.8, Baso % (Auto) 0.3, Absolute Neuts (auto) 5.4, Absolute Lymphs (auto) 1.45, Nucleated RBC % 0, Syphilis Total Ab Nonreactive, Blood Type B POSITIVE, Antibody Screen NEGATIVE ROS Constitutional Constitutional: Reports systems reviewed and no addt'l complaints, except as documented; Denies anorexia or headache(s) Cardiovascular Cardiovascular: Reports systems reviewed and no addt'l complaints, except as documented; Denies dizziness, dyspnea, nausea or tachypnea Respiratory/Chest Respiratory/Chest: Reports systems reviewed and no addt'l complaints, except as documented; Denies cough, dyspnea, shortness of breath at rest or tachypnea Gastrointestinal Gastrointestinal: Reports systems reviewed and no addt'l complaints, except as documented; Denies abdominal pain, constipation or nausea Genitourinary Genitourinary: Reports systems reviewed and no addt'l complaints, except as documented; Denies burning urination, difficulty urinating, dysuria, urinary frequency or urinary incontinence Musculoskeletal Musculoskeletal: Reports systems reviewed and no addt'l complaints, except as documented Integumentary Integumentary: Reports systems reviewed and no addt'l complaints, except as documented Neurologic Neurologic: Reports systems reviewed and no addt'l complaints, except as documented; Denies abnormal speech, dizziness or headache(s) Psychiatric Psychiatric: Reports systems reviewed and no addt'l complaints, except as documented Endocrine Endocrinology: Reports systems reviewed and no addt'l complaints, except as documented Hematologic/Lymphatic Hematologic/Lymphatic: Reports systems reviewed and no addt'l complaints, except as documented Physical Exam Const alert, oriented x3 and no apparent distress Neck full ROM Resp normal respiratory effort, normal air movement and no retractions Effort and Inspection: able to speak in complete sentences and symmetric chest movement GI soft to palpation Bladder / Kidney Exam: bladder normal to palpation Uterus Palpation: uterus fundus firm Extremity normal to inspection and full ROM Psych mental status grossly normal, thought process normal and cooperative Assessment & Plan (1) Vacuum extraction, delivered, current hospitalization: (2) Vaginal delivery: COMMENT: SINDY/DEBBY 37.0 IOL kiwi assist PLAN: s/p PPD # 1 1. routine post delivery care 2. breast feeding- support given 3. rh positive 4. rubella immune 5. Discharge home (3) Encounter for induction of labor: (4) GBS (group B Streptococcus carrier), +RV culture, currently : COMMENT: PCN in labor (5) Cholestasis during : COMMENT: twice weekly BPPs, weekly labs, consult with MFM per KW. MFM said unclear diagnosis- await telehealth visit to determine delivery timing. Dr. Coley recommends delivery at 37w. (6) Pruritus of : COMMENT: elevated AST. cbc nl and bile acids 7.7. MFM consult (7) Marginal insertion of umbilical cord affecting management of mother: COMMENT: per mfm, NO q 4 week scans needed (8) Abnormal genetic test during : COMMENT: high risk low fraction 1:17 for triploidy, tri18 tri 13. patient requests repeat NIPT low risk,and MFM referral for NT screen possible [facility] eventually (9) Supervision of high-risk : COMMENT: PRR, , SOLANGE 08/26/24, boy, PC Pippa, Luis (10) Obesity affecting : COMMENT: [id number] (11) : QUALIFIERS: Weeks of gestation: 35 weeks Qualified Code(s): Z 3A.35 - 35 weeks gestation of COMMENT: NIPT low risk. nl NT screen, nl anatomy, nl GCT (12) Family hx of colon cancer: COMMENT: Father 50 yo Survivor (13) Back pain: Charges/Coding Multi Select Codes Urinary/Genital Urinary/Genital CPT Codes: No Charge
[2024-08-07 01:38] VITALS: BP 115/58; PULSE 64; O2SAT 95
--- NOTE | 2024-08-07 01:48 | PN.OBGYN_ITS ---
Subjective Subjective Patient doing well without complaints. Tolerating PO. Ambulating and voiding without difficulty. Feeding well. Denies chest pain, shortness of breath, calf pain/swelling, fevers, chills, lightheadedness. Objective Data Objective Data Vital Signs: Vital Signs Temp Pulse Resp BP Pulse Ox O2 Del Method 97.8 F 64 17 115/58 L 95 Room Air 08/06/24 20:00 08/07/24 01:38 08/06/24 20:00 08/07/24 01:38 08/07/24 01:38 08/06/24 20:00 Oxygen Delivery Method Room Air Weight: 236 lb Body Mass Index (BMI) 38.0 Intake & Output: Intake and Output for Last 24 Hours 08/05/24 08/06/24 08/07/24 23:59 23:59 23:59 Intake Total 4450.00 / 4450.00 250 / 250 Output Total 1850 / 1850 1500 / 1500 Balance 2600.00 / 2600.00 -1250 / -1250 Lab / Micro Data 08/05/24 08:25 ROS Constitutional Constitutional: Reports systems reviewed and no addt'l complaints, except as documented; Denies anorexia or headache(s) Cardiovascular Cardiovascular: Reports systems reviewed and no addt'l complaints, except as documented; Denies dizziness, dyspnea, nausea or tachypnea Respiratory/Chest Respiratory/Chest: Reports systems reviewed and no addt'l complaints, except as documented; Denies cough, dyspnea, shortness of breath at rest or tachypnea Gastrointestinal Gastrointestinal: Reports systems reviewed and no addt'l complaints, except as documented; Denies abdominal pain, constipation or nausea Genitourinary Genitourinary: Reports systems reviewed and no addt'l complaints, except as documented; Denies burning urination, difficulty urinating, dysuria, urinary frequency or urinary incontinence Musculoskeletal Musculoskeletal: Reports systems reviewed and no addt'l complaints, except as documented Integumentary Integumentary: Reports systems reviewed and no addt'l complaints, except as documented Neurologic Neurologic: Reports systems reviewed and no addt'l complaints, except as documented; Denies abnormal speech, dizziness or headache(s) Psychiatric Psychiatric: Reports systems reviewed and no addt'l complaints, except as documented Endocrine Endocrinology: Reports systems reviewed and no addt'l complaints, except as documented Hematologic/Lymphatic Hematologic/Lymphatic: Reports systems reviewed and no addt'l complaints, except as documented Physical Exam Const alert, oriented x3 and no apparent distress Neck full ROM Resp normal respiratory effort, normal air movement and no retractions Effort and Inspection: able to speak in complete sentences and symmetric chest movement GI soft to palpation Bladder / Kidney Exam: bladder normal to palpation Uterus Palpation: uterus fundus firm Extremity normal to inspection and full ROM Psych mental status grossly normal, thought process normal and cooperative Assessment & Plan (1) Vacuum extraction, delivered, current hospitalization: (2) Vaginal delivery: COMMENT: KW/JW 37.0 IOL kiwi assist PLAN: s/p PPD # 2 1. routine post delivery care 2. breast feeding- support given 3. rh positive 4. rubella immune 5. discharge home (3) Encounter for induction of labor: (4) GBS (group B Streptococcus carrier), +RV culture, currently : COMMENT: PCN in labor (5) Cholestasis during : COMMENT: twice weekly BPPs, weekly labs, consult with MFM per KW. MFM said unclear diagnosis- await telehealth visit to determine delivery timing. Dr. Coley recommends delivery at 37w. (6) Pruritus of : COMMENT: elevated AST. cbc nl and bile acids 7.7. MFM consult (7) Marginal insertion of umbilical cord affecting management of mother: COMMENT: per mfm, NO q 4 week scans needed (8) Abnormal genetic test during : COMMENT: high risk low fraction 1:17 for triploidy, tri18 tri 13. patient requests repeat NIPT low risk,and MFM referral for NT screen possible [facility] eventually (9) Supervision of high-risk : COMMENT: PRR, , SOLANGE 08/26/24, boy, OLY Das, Luis (10) Obesity affecting : COMMENT: [id number] (11) : QUALIFIERS: Weeks of gestation: 35 weeks Qualified Code(s): Z 3A.35 - 35 weeks gestation of COMMENT: NIPT low risk. nl NT screen, nl anatomy, nl GCT (12) Family hx of colon cancer: COMMENT: Father 50 yo Survivor (13) Back pain: Charges/Coding Multi Select Codes Urinary/Genital Urinary/Genital CPT Codes: No Charge
[2024-08-07 02:00] VITALS: BP 115/58; PULSE 65; RESP 17; TEMP 36.4; O2SAT 95
[2024-08-07] MEDS: Ibuprofen 600 MG Tablet PO (06:45)
[2024-08-07 07:48] VITALS: PULSE 72; O2SAT 97
[2024-08-07 07:49] VITALS: BP 120/64; PULSE 71
[2024-08-07 08:15] VITALS: BP 120/64; PULSE 73; RESP 16; TEMP 36.3; O2SAT 97
[2024-08-11 16:07] LABS: Pathology Specimen OB SEE PATHOLOGY REPORT
--- NOTE | 2024-08-30 09:50 | NURSING ---
Edited delivery record for Ricky Herrera as delivering provider, Melanie Ashley assisting. Risa
== END 2024-08-07 08:45 | disposition home or self-care (01) | DRG 807 ==
PROVIDERS: Obstetrics & Gynecology; Admitting Provider Advanced Practice Midwife; Referring Provider Advanced Practice Midwife; Visit Provider Advanced Practice Midwife
DX: O26.643 Intrahepatic cholestasis of pregnancy, third trimester (principal); Z37.0 Single live birth; L29.9 Pruritus, unspecified; O99.214 Obesity complicating childbirth; O99.72 Diseases of the skin and subcutaneous tissue complicating childbirth; O99.824 Streptococcus B carrier state complicating childbirth; O76 Abnormality in fetal heart rate and rhythm complicating labor and delivery; O70.1 Second degree perineal laceration during delivery; O43.193 Other malformation of placenta, third trimester; O28.5 Abnormal chromosomal and genetic finding on antenatal screening of mother; O99.892 Other specified diseases and conditions complicating childbirth; R03.1 Nonspecific low blood-pressure reading; O69.81X0 Labor and delivery complicated by cord around neck, without compression, not applicable or unspecified; Z3A.37 37 weeks gestation of pregnancy; Z79.899 Other long term (current) drug therapy; Z80.0 Family history of malignant neoplasm of digestive organs
CPT/HCPCS: 59025; 59050; 85025; 86780; 86850; 86900; 86901; 88307; 99221; G0378